=== PATIENT | male | born 1950 | race Caucasian/White ===

== ENCOUNTER 2019-09-13 16:32 | Inpatient (IN) ==
[2019-09-13] MEDS ORDERED: ALBUTEROL 0.083% NEBU SOLN 3 ML VIAL NEB STA (17:13)
--- NOTE | 2019-09-13 17:33 | XRay Report ---
SINGLE VIEW CHEST CLINICAL HISTORY: Dyspnea. FINDINGS: 2 AP, portable, upright chest radiographs are obtained. No prior studies are available for comparison at the time of dictation. The examination is degraded by portable technique, large body salinas bitus, and patient rotation. The heart is enlarged noting atherosclerotic calcification of the thora cic aorta. There is prominence of the pulmonary vasculature. Scarring/atelectasis is noted at the zoila g bases. No airspace consolidation or large pleural effusion is identified. No pneumothorax is seen. The skeletal structures are osteopenic. The bony thorax is grossly intact. Fusion hardware is noted i n the lower cervical spine. Electronic device projects over the left apex. IMPRESSION: Cardiomegaly with prominence of the pulmonary vasculature. Correlate clinically for evide nce of mild congestive failure. ACT 112: Negative or not required by law. Electronically signed by: Patrick Lobo M.D. 09/13/2019 5:31 PM
[2019-09-13 17:55] LABS: Partial Thromboplastin Time 29.2 Seconds (21.0-31.0); Prothrombin Time 10.5 Seconds (9.0-12.0)
[2019-09-13 18:04] LABS: Alanine Aminotransferase 23 U/L (12-78); Albumin Level 3.2 gm/dl (3.4-5.0); Aspartate Aminotransferase 21 U/L (15-37); BUN Creatinine Ratio 13.3 (10-20); Blood Urea Nitrogen 10 mg/dl (7-18); Calcium 8.9 mg/dl (8.5-10.1); Carbon Dioxide 36 mmol/L (21-32); Chloride 96 mmol/L (98-107); Creatinine Clr Calc Pharmacy 116.7 ml/min; Est GFR (African American) 108.2; Est GFR (Non-African American) 93.3; Glucose 112 mg/dl (70-99); Magnesium 2.1 mg/dl (1.8-2.4); Sodium 134 mmol/L (136-145)
[2019-09-13 18:05] LABS: Basophils # (auto) 0.01 K/uL (0-0.2); Basophils % (auto) 0.1 %; Eosinophils # (auto) 0.17 K/uL (0-0.5); Hematocrit (blood only) 46.7 % (42-52); Hemoglobin 15.4 g/dL (14.0-18.0); Immature Granulocytes # (auto) 0.03 K/uL (0.00-0.02); Immature Granulocytes % (auto) 0.4 %; Lymphocytes # (auto) 1.23 K/uL (1.2-3.4); Lymphocytes % (auto) 14.4 %; Mean Corpuscular Hemoglobin 32.8 pg (25-34); Mean Corpuscular Volume 99.4 fL (80-100); Mean Platelet Volume 9.5 fL (7.4-10.4); Monocytes # (auto) 0.79 K/uL (0.11-0.59); Monocytes % (auto) 9.3 %; Neutrophils % (auto) 73.8 %; Platelet Count 183 K/uL (130-400); RDW Coefficient of Variation 13.8 % (11.5-14.5); RDW Standard Deviation 49.5 fL (36.4-46.3); White Blood Count 8.53 K/uL (4.8-10.8)
[2019-09-13 18:09] LABS: Albumin Globulin Ratio 0.7 (0.9-2); Alkaline Phosphatase 103 U/L (45-117); Bilirubin,Total 0.2 mg/dl (0.2-1); Globulin 4.4 gm/dl (2.5-4.0); NT Pro B Type Natriuretic Pept 207 pg/ml (0-900); Total Protein 7.6 gm/dl (6.4-8.2); Troponin I < 0.015 ng/ml (0-0.045)
[2019-09-13 18:39] LABS: Influenza A virus by PCR Neg for Influ A (Neg); Influenza B virus by PCR Neg for Influ B (Neg)
[2019-09-13 19:06] LABS: D Dimer 660 ug/L FEU (0-500)
[2019-09-13] MEDS ORDERED: NITROGLYCERIN 2% OINTMENT 30GM TUBE EXT STA (19:13)
[2019-09-13] MEDS ORDERED: ALUMINUM/MAGNESIUM SUSP 30 ML UDC PO PRN (19:15)
[2019-09-13] MEDS ORDERED: POLYETHYLENE (MIRALAX) 17 GM PACK PO PRN (19:15)
[2019-09-13] MEDS ORDERED: ACETAMINOPHEN 325 MG TAB PO PRN (19:15)
[2019-09-13] MEDS ORDERED: MAGNESIUM HYDROXIDE SUSP 30 ML UDC PO PRN (19:15)
[2019-09-13 19:26] LABS: Appearance Urine Clear (Clear); Bacteria Urine Automated Negative (Negative); Bilirubin Urine Negative (Negative); Blood Urine Negative (Negative); Cast Urine Automated 0 /lpf (0-5); Color Urine Yellow; Epithelial Cell Urine Auto 0-5 /lpf (0-5); Glucose Urine UA Negative (Negative); Ketones Urine Negative (Negative); Leukocyte Esterase Urine Negative (Negative); Nitrite Urine Negative (Negative); Protein Urine 2+ (Negative); RBC Urine Automated 0-4 /hpf (0-4); Specific Gravity Urine 1.013 (1.000-1.030); Urobilinogen Urine Negative (Negative); WBC Urine Automated 0 /hpf (0-5)
[2019-09-13] MEDS ORDERED: OPTIRAY 320 125ml IV PRN (19:41)
--- NOTE | 2019-09-13 20:00 | CT Scan Report ---
CT ANGIOGRAM OF THE CHEST CLINICAL HISTORY: Hypoxia. COMPARISON STUDY: Chest x-ray dated 09/13/2019. TECHNIQUE: Following the IV administration of 120 cc of Optiray 320, CT angiogram of the chest was pe rformed from the upper abdomen to the thoracic inlet utilizing the pulmonary embolus protocol. Images are reviewed in the axial, sagittal, and coronal planes. 3-D MIPS images are created and assessed. I V contrast was administered without complication. A dose lowering technique was utilized adhering to the principles of ALARA. CT DOSE: 1107.04 mGy.cm FINDINGS: Thyroid: Imaged portions of the thyroid gland are normal in size and heterogeneous in attenuation. Thoracic aorta: There is atherosclerotic calcification of the thoracic aorta, which is normal in emanuel anum and demonstrates standard 3-vessel arch anatomy. No dissection is seen. Pulmonary vasculature: The pulmonary trunk is normal in caliber. There are no filling defects identif ied in main, lobar, or segmental pulmonary branches to suggest pulmonary embolus. Heart: The heart is top normal in size and without pericardial effusion. The coronary arteries and mi tral annulus are densely calcified. Lungs and pleural spaces: There is no airspace consolidation or pleural effusion. Mild scarring/atele ctasis is noted at the lung bases. The trachea and central airways are clear. There is diffuse peribr onchial thickening. Mediastinum: There is no mediastinal lymphadenopathy. Kiesha: Clear. Axillae: There is no axillary lymphadenopathy. Upper abdomen: There is a tiny hiatal hernia. Partially visualized upper abdominal viscera is within normal limits. Skeletal structures: The Skeletal structures are osteopenic. No lytic or blastic bony lesions are see n. Degenerative change is noted in the shoulders and thoracic spine. Fusion hardware is noted in the lower cervical spine. IMPRESSION: 1. There is no evidence of pulmonary embolus in the main, lobar, or segmental pulmonary arteries. 2. There is no airspace consolidation or pleural effusion. 3. Mild diffuse peribronchial thickening suggests bronchitis/reactive airway disease. Clinical correl ation will be required. ACT 112: Negative or not required by law. Electronically signed by: Patrick Lobo M.D. 09/13/2019 7:59 PM
--- NOTE | 2019-09-13 20:09 | Emergency Department Note ---
Entered by Ena Berry acting as a scribe for History of Present Illness General Chief complaint: Illness Stated complaint: COUGH, LIGHTHEADED, SEIZURE, EXCESS PHLEM Source: patient and family () Mode of arrival: ambulatory Limitations: no limitations History of Present Illness Provider complaint: Syncope Onset (ago): hour(s) 1 Location: head Pain Consistency: + other (episode) Maximum Pain Intensity: 3 Quality: + other (syncope) Associated symptoms: + cough, + nausea/vomiting, + shortness of breath and + other (Additional symptoms: hypoxia, swelling to the extremities, back pain) The patient is a 69 year old male with a history of COPD who presents to the Emergency Room with complaints of an episode of syncope secondary to hypoxia occurring about 1 hour prior to arrival. Per , the patient was lying down at home when he suddenly sat up and keeled backwards. She reports that his eyes r olled back and that he was unconscious for about 20 seconds. 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 He adds that he is supposed to be on 2L O2 at night and is scheduled to have a pacemaker placed in the near future. The patient reports that he is cared for at the [facility] and has been referred to [facility] for further evaluation. He adds that he sees Dr. Llanos for cardiology. The patient also complains of shortness of breath, cough, increasing swelling to the extremities, back pain, and vomiting. He mentions that he visited [place] a few days ago and that he smokes. Home Medications Home Medications Medication Instructions Recorded Confirmed Type Nugenix 1 cap PO DAILY 09/13/19 History amlodipine 10 mg PO DAILY 09/13/19 09/13/19 History aspirin [Danielle Aspirin] 325 mg PO QAM 09/13/19 09/13/19 History ieooqol-dqfubwqnqzyif-mabseeju 1 tab PO Q6H PRN 09/13/19 09/13/19 History [Excedrin Extra Strength] hmbayvmcat-gcqizoejohoai-pcvp 1 tab PO Q6H PRN 09/13/19 09/13/19 History cholecalciferol (vitamin D3) 1,000 unit PO DAILY 09/13/19 09/13/19 History [Vitamin D3] diazepam 5 mg PO TID PRN 09/13/19 09/13/19 History furosemide 40 mg PO BID 09/13/19 09/13/19 History latanoprost 1 drp OPHTHALMIC (EYE) PM 09/13/19 09/13/19 History magnesium 400 mg PO DAILY 09/13/19 09/13/19 History mv,Ca,yne-dwfj-FP-lycopene 1 tab PO DAILY 09/13/19 09/13/19 History [Centrum Men] omega 5-rry-kim-fish oil 2 cap PO BID 09/13/19 09/13/19 History sildenafil 100 mg PO DAILY PRN 09/13/19 09/13/19 History timolol 1 drp OPHTHALMIC (EYE) QAM 09/13/19 09/13/19 History trazodone 100 mg PO HS 09/13/19 09/13/19 History Allergies Allergy/AdvReac Type Severity Reaction Status Date / Time gabapentin Allergy Unknown Unverified 09/13/19 18:01 muscle relaxers Allergy Unknown Uncoded 09/13/19 18:01 Past Med/Surg History Medical History COPD (chronic obstructive pulmonary disease) Social History Preferred Language: [place] marital status: Feels Safe at Home: Yes Smoking Status: Current every day smoker Review of Systems See HPI for pertinent positives & negatives. and A total of 10 systems reviewed and were otherwise negative Physical Exam Vital Signs Vital Signs - 24 hr 09/13/19 16:33 09/13/19 17:01 09/13/19 17:31 Temperature 36.5 C Temperature Source Oral Pulse Rate 85 82 Pulse Rate [Apical] 86 Pulse Rate from SpO2 Sensor 82 Pulse Rhythm Regular Pulse Strength Normal Respiratory Rate 20 24 20 Respiratory Effort / Characteristics Non-Labored Spontaneous Non-Labored Spontaneous Respiratory Depth Normal Respiratory Pattern Regular Blood Pressure 186/131 H 186/82 H Blood Pressure Mean 149 93 Blood Pressure Position Sitting Pulse Oximetry 87 L 95 96 Oxygen Delivery Method Room Air Nasal Cannula Nasal Cannula Oxygen Flow Rate 2 2 Sepsis Recent Fever Within 48 Hours No Sepsis Action Taken by Nursing No Action Required 09/13/19 17:32 09/13/19 18:48 Temperature Temperature Source Pulse Rate 81 Pulse Rate [Apical] Pulse Rate from SpO2 Sensor 81 Pulse Rhythm Pulse Strength Respiratory Rate 31 H Respiratory Effort / Characteristics Respiratory Depth Respiratory Pattern Blood Pressure 199/97 H Blood Pressure Mean 110 Blood Pressure Position Pulse Oximetry 97 94 Oxygen Delivery Method Nasal Cannula Nasal Cannula Oxygen Flow Rate 2 2 Sepsis Recent Fever Within 48 Hours Sepsis Action Taken by Nursing GENERAL: sitting up in bed, dyspneic on conversation, moderate distress, nontoxic. EYE EXAM: normal conjunctiva OROPHARYNX: no exudate, no erythema, lips, buccal mucosa, and tongue normal and mucous membranes are moist NECK: supple, no nuchal rigidity, no adenopathy, non-tender LUNGS: Faint wheezing bilateral. Normal chest wall mechanics HEART: no murmurs, S1 normal and S2 normal CHEST: child monitor in place. ABDOMEN: abdomen soft, non-tender, normo-active bowel sounds, no masses, no rebound or guarding. BACK: Back is symmetrical on inspection and there is no deformity, no midline tenderness, no CVA tenderness. SKIN: no rashes and no bruising UPPER EXTREMITIES: upper extremities are grossly normal. LOWER EXTREMITIES: Mild pitting edema NEURO EXAM: Normal sensorium, cranial nerves II-XII grossly intact, normal speech, no gross weakness of arms, no gross weakness of legs. Gross sensation intact. Course Course ED COURSE: Vital signs were reviewed and showed hypertension The patients medical record was reviewed The above diagnostic studies were performed and reviewed. ED treatments and interventions as stated above. 1657: The patient was evaluated in room A2. A complete history and physical examination was performed. 1800: The patient had a 9.2 second and 4.1 second pause today. Upon reevaluation, the patient is resting. I discussed my findings with the patient and he understands and agrees with the treatment plan. 1829: I discussed the patient's case with Dr. Erin Grace. Dr. Khan would like the patient to have a D dimer test and will evaluate the patient for further management. 1844: I reviewed the patient's case with Dr. Duncan - Cardiology, [facility]. Based on the patients age, coexisting illnesses, exam and lab findings the decision to treat as an inpatient was made. The patient remained stable while under my care. The patient will be evaluated for further management. Consultations Consultation #1: I discussed the patient's case with Dr. Erin Grace. Dr. Khan would like the patient to have a D dimer test and will evaluate the patient for further management. Time: 18:29 Consultation #2: I reviewed the patient's case with Dr. Duncan - Cardiology, [facility]. Time: 18:44 Administered Medications Ioversol (Optiray 320 125ml) 120 ml IV ONCE PRN PRN Reason: Interaction Checking Stop: 09/17/19 19:40 Last Admin: 09/13/19 19:42 Dose: 120 ml Documented by: [id number] Discontinued Medications Albuterol (Ventolin 0.083% 2.5mg/3ml) 5 mg NEB NOW STA Stop: 09/13/19 17:14 Last Admin: 09/13/19 17:31 Dose: 5 mg Documented by: [id number] Nitroglycerin (Nitro-Bid 2%) 2 inch EXT NOW STA Stop: 09/13/19 19:14 Last Admin: 09/13/19 19:21 Dose: 2 inch Documented by: [id number] Critical Care Time Critical Care Time: Yes Total Critical Care Time: 32 I have personally spent 32 minutes of critical care time in the direct management of this patient. This includes bedside care, interpretation of diagnostic studies, and testing, discussion with consultants, patient, and family members, and other required patient management activities. This 32 minutes is in excess of all separately billable procedures. Medical Decision Making Differential Diagnosis Differential diagnoses includes but is not limited to pneumonia, bronchitis, COPD/Asthma exacerbation, pneumothorax, pulmonary embolism, congestive heart failure, acute coronary syndrome Medical Records Attestation: I reviewed the patient's medical records. Home Medications Current Medication List: was personally reviewed by me Laboratory Data Attestation: I reviewed the patient's lab results. Result diagrams: 09/13/19 17:30 09/13/19 17:30 Lab Results 09/13/19 09/13/19 09/13/19 Range/Units 17:30 17:30 17:30 WBC 8.53 (4.8-10.8) K/uL RBC 4.70 (4.7-6.1) M/uL Hgb 15.4 (14.0-18.0) g/dL Hct 46.7 (42-52) % MCV 99.4 (80-100) fL MCH 32.8 (25-34) pg MCHC 33.0 (32-36) g/dL RDW Std Deviation 49.5 H (36.4-46.3) fL RDW Coeff of Carla 13.8 (11.5-14.5) % Plt Count 183 (130-400) K/uL MPV 9.5 (7.4-10.4) fL Immature Gran % (Auto) 0.4 % Neut % (Auto) 73.8 % Lymph % (Auto) 14.4 % Hitchcock % (Auto) 9.3 % Eos % (Auto) 2.0 % Baso % (Auto) 0.1 % Immature Gran # (Auto) 0.03 H (0.00-0.02) K/uL Neut # (Auto) 6.30 (1.4-6.5) K/uL Lymph # (Auto) 1.23 (1.2-3.4) K/uL Hitchcock # (Auto) 0.79 H (0.11-0.59) K/uL Eos # (Auto) 0.17 (0-0.5) K/uL Baso # (Auto) 0.01 (0-0.2) K/uL PT 10.5 (9.0-12.0) Seconds INR 1.0 (0.9-1.1) APTT 29.2 (21.0-31.0) Seconds PTT Ratio 1.0 D-Dimer (0-500) ug/L FEU Sodium 134 L (136-145) mmol/L Potassium 4.0 (3.5-5.1) mmol/L Chloride 96 L (98-107) mmol/L Carbon Dioxide 36 H (21-32) mmol/L Anion Gap 2.0 L (3-11) BUN 10 (7-18) mg/dl Creatinine 0.73 (0.6-1.4) mg/dl Est Cr Clr Drug Dosing 116.7 ml/min Est GFR ( Amer) 108.2 Est GFR (Non-Af Amer) 93.3 BUN/Creatinine Ratio 13.3 (10-20) Glucose 112 H (70-99) mg/dl Calcium 8.9 (8.5-10.1) mg/dl Magnesium 2.1 (1.8-2.4) mg/dl Total Bilirubin 0.2 (0.2-1) mg/dl AST 21 (15-37) U/L ALT 23 (12-78) U/L Alkaline Phosphatase 103 (45-117) U/L Troponin I < 0.015 (0-0.045) ng/ml NT-Pro-B Natriuret Pep 207 (0-900) pg/ml Total Protein 7.6 (6.4-8.2) gm/dl Albumin 3.2 L (3.4-5.0) gm/dl Globulin 4.4 H (2.5-4.0) gm/dl Albumin/Globulin Ratio 0.7 L (0.9-2) Urine Color Urine Appearance (Clear) Urine pH (4.5-7.5) Ur Specific Harrold (1.000-1.030) Urine Protein (Negative) Urine Glucose (UA) (Negative) Urine Ketones (Negative) Urine Blood (Negative) Urine Nitrite (Negative) Urine Bilirubin (Negative) Urine Urobilinogen (Negative) Ur Leukocyte Esterase (Negative) Urine WBC (Auto) (0-5) /hpf Urine RBC (Auto) (0-4) /hpf U Hyaline Cast (Auto) (0-5) /lpf U Epithel Cells (Auto) (0-5) /lpf Urine Bacteria (Auto) (Negative) Influenza Type A (PCR) (Neg) Influenza Type B (PCR) (Neg) 09/13/19 09/13/19 09/13/19 Range/Units 17:30 17:32 19:05 WBC (4.8-10.8) K/uL RBC (4.7-6.1) M/uL Hgb (14.0-18.0) g/dL Hct (42-52) % MCV (80-100) fL MCH (25-34) pg MCHC (32-36) g/dL RDW Std Deviation (36.4-46.3) fL RDW Coeff of Carla (11.5-14.5) % Plt Count (130-400) K/uL MPV (7.4-10.4) fL Immature Gran % (Auto) % Neut % (Auto) % Lymph % (Auto) % Hitchcock % (Auto) % Eos % (Auto) % Baso % (Auto) % Immature Gran # (Auto) (0.00-0.02) K/uL Neut # (Auto) (1.4-6.5) K/uL Lymph # (Auto) (1.2-3.4) K/uL Hitchcock # (Auto) (0.11-0.59) K/uL Eos # (Auto) (0-0.5) K/uL Baso # (Auto) (0-0.2) K/uL PT (9.0-12.0) Seconds INR (0.9-1.1) APTT (21.0-31.0) Seconds PTT Ratio D-Dimer 660 H* (0-500) ug/L FEU Sodium (136-145) mmol/L Potassium (3.5-5.1) mmol/L Chloride (98-107) mmol/L Carbon Dioxide (21-32) mmol/L Anion Gap (3-11) BUN (7-18) mg/dl Creatinine (0.6-1.4) mg/dl Est Cr Clr Drug Dosing ml/min Est GFR ( Amer) Est GFR (Non-Af Amer) BUN/Creatinine Ratio (10-20) Glucose (70-99) mg/dl Calcium (8.5-10.1) mg/dl Magnesium (1.8-2.4) mg/dl Total Bilirubin (0.2-1) mg/dl AST (15-37) U/L ALT (12-78) U/L Alkaline Phosphatase (45-117) U/L Troponin I (0-0.045) ng/ml NT-Pro-B Natriuret Pep (0-900) pg/ml Total Protein (6.4-8.2) gm/dl Albumin (3.4-5.0) gm/dl Globulin (2.5-4.0) gm/dl Albumin/Globulin Ratio (0.9-2) Urine Color Yellow Urine Appearance Clear (Clear) Urine pH 6.0 (4.5-7.5) Ur Specific Harrold 1.013 (1.000-1.030) Urine Protein 2+ H (Negative) Urine Glucose (UA) Negative (Negative) Urine Ketones Negative (Negative) Urine Blood Negative (Negative) Urine Nitrite Negative (Negative) Urine Bilirubin Negative (Negative) Urine Urobilinogen Negative (Negative) Ur Leukocyte Esterase Negative (Negative) Urine WBC (Auto) 0 (0-5) /hpf Urine RBC (Auto) 0-4 (0-4) /hpf U Hyaline Cast (Auto) 0 (0-5) /lpf U Epithel Cells (Auto) 0-5 (0-5) /lpf Urine Bacteria (Auto) Negative (Negative) Influenza Type A (PCR) Neg for Influ A (Neg) Influenza Type B (PCR) Neg for Influ B (Neg) Imaging Data Radiologist's Impression: Radiology results as stated below per my review and the radiologist's interpretation: SINGLE VIEW CHEST CLINICAL HISTORY: Dyspnea. FINDINGS: 2 AP, portable, upright chest radiographs are obtained. No prior studies are available for comparison at the time of dictation. The examination is degraded by portable technique, large body habitus, and patient rotation. The heart is enlarged noting atherosclerotic calcification of the thoracic aorta. There is prominence of the pulmonary vasculature. Scarring/atelectasis is noted at the lung bases. No airspace consolidation or large pleural effusion is identified. No pneumothorax is seen. The skeletal structures are osteopenic. The bony thorax is grossly intact. Fusion hardware is noted in the lower cervical spine. Electronic device projects over the left apex. IMPRESSION: Cardiomegaly with prominence of the pulmonary vasculature. Correlate clinically for evidence of mild congestive failure. ACT 112: Negative or not required by law. Electronically signed by: Patrick Lobo M.D. 09/13/2019 5:31 PM ECG Data Attestation: I personally reviewed and interpreted this ECG as follows: Indication: + SOB/dyspnea Rate (beats per minute): 82 Rhythm: + sinus rhythm ECG Intervals/blocks: + Right Bundle branch block ECG [place]: + Left axis deviation ECG ST segments: + T-wave inversions (V1) ECG Findings: no PVCs Blood Pressure Blood Pressure Findings: Elevated blood pressure Blood Pressure Disposition: further management by hospitalist FANY Narrative Patient is a 69-year-old male presents the ER for syncopal episode. Upon arrival he is found to be hypoxic. Does have a history of COPD. [facility] Has a heart monitor in place. Did obtain records and it appears as though he has had a 9.2-second pause and a 4.1-second pause today. [facility] show that he is also had a reported 12-second pause. They did recommend pacer placement. Patient did have faint wheezing. He was given neb treatments. IV was established blood work was obtained showed no significant leukocytosis or anemia. D-dimer was slightly elevated and CT PE was performed but showed no clots. BMP was unremarkable along with LFTs bilirubin troponin and BNP. UA was negative. Influenza negative. Patient was given a neb treatments along with steroids. He was updated bedside. Discussed with the hospitalist as well as cardiology for admission with syncope, sick sinus syndrome as well as hypoxia. Continuous Cardiac Monitoring: An order was placed for continuous cardiac monitoring. The monitor shows a rate of 82 with sinus rhythm. Impression & Plan Sick sinus syndrome, Hypoxia, Syncope, COPD exacerbation Discharge Plan Visit Data Chief Complaint: Illness Stated Complaint: COUGH, LIGHTHEADED, SEIZURE, EXCESS PHLEM ED Provider: Jayce Rios Discharge Problem: Sick sinus syndrome, Hypoxia, Syncope, COPD exacerbation Patient Disposition: Admitted As Inpatient Forms Stand Alone Forms: My [facility] Prescriptions Prescriptions: No Action furosemide 40 mg Tablet 40 mg PO BID RF: 0 aspirin [Danielle Aspirin] 325 mg Tablet 325 mg PO QAM RF: 0 sildenafil 100 mg Tablet 100 mg PO DAILY PRN (Reason: Erectile Dysfunction) RF: 0 zrdjkdtohs-icxlchawijzvy-ytjv 50-325-40 mg Tablet 1 tab PO Q6H PRN (Reason: Migraine Headache) RF: 0 trazodone 100 mg Tablet 100 mg PO HS RF: 0 amlodipine 10 mg Tablet 10 mg PO DAILY RF: 0 timolol 0.25 % Drops 1 drp OPHTHALMIC (EYE) QAM RF: 0 Excedrin Extra Strength 250-250-65 mg Tablet 1 tab PO Q6H PRN (Reason: Pain) RF: 0 diazepam 5 mg Tablet 5 mg PO TID PRN (Reason: Anxiety) RF: 0 cholecalciferol (vitamin D3) [Vitamin D3] 25 mcg (1,000 unit) Capsule 1,000 unit PO DAILY RF: 0 magnesium 200 mg Tablet 400 mg PO DAILY RF: 0 omega 5-wni-iav-fish oil 1,000 mg (120 mg-180 mg) Capsule 2 cap PO BID RF: 0 Centrum Men 8 mg iron- 200 mcg-600 mcg Tablet 1 tab PO DAILY RF: 0 Nugenix 1 cap PO DAILY RF: 0 latanoprost 0.005 % Drops 1 drp OPHTHALMIC (EYE) PM RF: 0 Referrals Referrals: PCP,NO [Primary Care Provider] - Discharge Problem: Syncope Qualifiers: Syncope type: unspecified Qualified Code(s): R55 - Syncope and collapse The scribe's documentation has been prepared under my direction and personally reviewed by me in its entirety. I confirm that the note above accurately reflects all work, treatment, procedures, and medical decision making performed by me.
[2019-09-13] MEDS ORDERED: HydrALAZINE 10 MG TAB PO PRN (20:42)
[2019-09-13] MEDS ORDERED: XOPENEX/ATROVENT 0.63mg/0.5MG NEB COMBO NEB PRN (20:58)
--- NOTE | 2019-09-13 20:58 | History & Physical Report ---
Date of Service September 13, 2019 Assessment & Plan (1) Acute respiratory failure with hypoxia: Admits to PCU on telemetry, Vital signs every 4 hours, Check CBC, CMP daily, replenish electrolytes. BNP pending, procalcitonin pending. Follow-up with results. Hypoxia could be due to volume overload and patient admitted that he gained at least 10 pounds of weight. Started doxycycline 100 mg IV twice daily for bronchitis. Started ipratropium Xopenex (since patient cannot tolerate DuoNeb) every 6 hours for shortness of breath and difficulties with breathing. DVT prophylaxis SCDs and teds, Full code Present on Admission?: Yes (2) Acute exacerbation of congestive heart failure: Patient clinically appears volume overloaded and chest x-ray is concerning pulmonary congestion. He could be above his crude weight baseline approximately 20 to 30 pounds. Started Lasix 40 mg IV daily and increase as needed to achieve net negative output at least 1.5 L daily, Replenish electrolytes and monitor closely, Monitor blood pressure which was elevated in the emergency room, Restarted home dose of amlodipine 10 mg p.o. daily, Started hydralazine 10 mg p.o. 4 times daily as needed for elevated blood pressure above 160/90 Heart healthy diet with low-sodium Restrict free water p.o. intake to 1200 mils per day Strict in and out Daily weight Present on Admission?: Yes (3) Sick sinus syndrome: TTE pending We will consult cardiology, EKG pending Not clear origin of patient current condition. Patient is poor historian and his records from [facility] are not available. Present on Admission?: Yes (4) COPD exacerbation: As discussed above Present on Admission?: Yes (5) Syncope: As discussed above Present on Admission?: Yes (6) Hypertriglyceridemia: Fasting lipid panel pending, continue fish oil through capsule p.o. twice daily Present on Admission?: Yes (7) Hypertension: Monitor blood pressure every 4 hours, Started home dose of amlodipine 10 mg p.o. daily And aspirin 325 mg p.o. every morning Present on Admission?: Yes (8) Nicotine dependence: Patient was advised to stop smoking, offered nicotine patch. (9) Legal blindness: Patient has glaucoma. Continue timolol 1 drop to both eyes every morning. Present on Admission?: Yes History of Present Illness Chief Complaint: Shortness of breath and syncope Primary Care Provider: NO PCP The patient is a 69 years old with past medical history of congestive heart failure, sick sinus syndrome, COPD , legally blind who was brought to the emergency room with a complaint of an episode of syncope secondary to hypoxia occurring approximately 1 hour ago prior to arrival. Per patient the patient was laying down at home when he suddenly sat up and keeled backwards. Patient reports that his eyes rolled back and he was unconscious approximately for 20 seconds. The patient reports that he had a grand mal se izure due to medication reaction many years ago and he does not take that medication anymore. Patient supposed to be on 2 L of oxygen at night and have pacemaker placed in near future. Since patient goes to the [facility] we are not able to obtain his records at this time. Per patient he was referred from [facility] to [place] for further evaluation. 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 Patient denies fever, chills, chest pain, abdominal pain, frequency, urgency, back pain, nausea, vomiting. Patient continues to smoke. Patient states that he does not smoke a lot but he did in the past. He smokes approximately several cigarettes per day. Labs are reviewed: WBCs 8.53, hemoglobin 15.4, hematocrit 46.7, platelets 183, PT 10.5, INR 1, APTT 29.2 d-dimer is 660, sodium 134, potassium 4, chloride 96, carbon dioxide 36, anion gap 2, BUN 10, creatinine 0.73, GFR 93.3, glucose 112, calcium 8.9, magnesium 2.1, total bilirubin 0.2, alkaline phosphatase 103, troponin 0.015, BNP 207, total protein 7.6, albumin 3.2, globulin 4.4, TSH pending. CTA of the chest: There is no pulmonary embolism, there is no airspace consolidation or pleural effusion. Mild diffuse tomer-bronchial thickening suggests bronchitis reactive airway disease. Decision was made to admit patient for acute exacerbation of CHF, syncope, and acute exacerbation of COPD. Allergies Allergy/AdvReac Type Severity Reaction Status Date / Time gabapentin Allergy Unknown Unverified 09/13/19 18:01 muscle relaxers Allergy Unknown Uncoded 09/13/19 18:01 Home Medications Home Medications Medication Instructions Recorded Confirmed Type Nugenix 1 cap PO DAILY 09/13/19 History amlodipine 10 mg PO DAILY 09/13/19 09/13/19 History aspirin [Danielle Aspirin] 325 mg PO QAM 09/13/19 09/13/19 History mxgepns-hvkmieesseixp-gtgkioti 1 tab PO Q6H PRN 09/13/19 09/13/19 History [Excedrin Extra Strength] vsylbismqi-ekfpucjoybcxm-quck 1 tab PO Q6H PRN 09/13/19 09/13/19 History cholecalciferol (vitamin D3) 1,000 unit PO DAILY 09/13/19 09/13/19 History [Vitamin D3] diazepam 5 mg PO TID PRN 09/13/19 09/13/19 History furosemide 40 mg PO BID 09/13/19 09/13/19 History latanoprost 1 drp OPHTHALMIC (EYE) PM 09/13/19 09/13/19 History magnesium 400 mg PO DAILY 09/13/19 09/13/19 History mv,Ca,ret-pbdu-UC-lycopene 1 tab PO DAILY 09/13/19 09/13/19 History [Centrum Men] omega 3-bqx-ioj-fish oil 2 cap PO BID 09/13/19 09/13/19 History sildenafil 100 mg PO DAILY PRN 09/13/19 09/13/19 History timolol 1 drp OPHTHALMIC (EYE) QAM 09/13/19 09/13/19 History trazodone 100 mg PO HS 09/13/19 09/13/19 History Past Med/Surg History Medical History COPD (chronic obstructive pulmonary disease) Social History Preferred Language: Djiboutian Communication Ability: Effective Pharmacy Data Analyst Required: No Beliefs That Will Affect Care: None marital status: Current Living Situation: Alone Feels Safe at Home: Yes Safety Concerns: Feels Safe At This Time Smoking Status: Current every day smoker Tobacco Type: cigarettes ; Cigarettes Per Day: 20 ; Hx Alcohol Use: No Hx Substance Use: Yes substance use type: marijuana Review of Systems Review of Systems: All systems reviewed & are unremarkable except as noted in HPI & below Physical Exam Constitutional: WD/WN, vitals as above well developed and + morbidly obese Eyes: PERRL, conjunctivae normal, anicteric sclerae ENMT: external ear and nose normal, oropharynx normal Neck: trachea midline, no thyromegaly Respiratory: Auscultation: + crackles and + wheezes Cardiovascular: Rate/Rhythm: regular rate and regular rhythm Heart Sounds: normal S1 and normal S2 Palpation: + palpable S3 Vessels: dorsalis pedis pulses present Extremities: + pedal edema Gastrointestinal (Abdomen): normal bowel sounds, soft, nontender, no hepatosplenomegaly Musculoskeletal: no cyanosis or clubbing, extremities motor strength 5/5 Skin: no rashes, warm and dry Neurologic: patellar DTR's 2+ bilat, sensation intact Psychiatric: A+Ox3, euthymic affect Lymphatic: no cervical or axillary lymphadenopathy Results & Data Vital Signs (Past 12 Hours) Vital Signs Temp Pulse Pulse Resp BP Pulse Ox 09/13/19 18:48 81 31 H 199/97 H 94 09/13/19 17:32 97 09/13/19 17:31 86 20 96 09/13/19 17:01 82 24 186/82 H 95 09/13/19 16:33 36.5 C 85 20 186/131 H 87 L Code Status & VTE Plan Code Status Full code VTE Prophylaxis Plan VTE Prophylaxis will be ordered: Yes PG Care Time/CCT Total # of Minutes Spent Total Time Spent with Patient: Total time spent is greater than 50% in coordination of care (as documented) at patient's floor/unit and/or counseling patient: Coding Level of Care Code 32493 Initial Inpt Care Lvl 3 Diagnoses Acute respiratory failure with hypoxia J96.01 Acute exacerbation of congestive heart failure I50.9 Sick sinus syndrome I49.5 COPD exacerbation J44.1 Syncope R55 Syncope type: unspecified Hypertriglyceridemia E78.1 Hypertension I10 Nicotine dependence F17.200 Legal blindness H54.8 (1) Syncope Syncope type: unspecified Qualified Code(s): R55 - Syncope and collapse
[2019-09-13] MEDS ORDERED: FUROSEMIDE 40 MG TAB PO SCH (21:00)
[2019-09-13] MEDS ORDERED: FUROSEMIDE 40 MG in SYRINGE 0 ML IV SCH (21:00)
[2019-09-13] MEDS ORDERED: LEVALBUTEROL HCL 0.63 MG/3 ML NEB NEB PRN (21:00)
[2019-09-13] MEDS ORDERED: IPRATROPIUM BROMIDE NEB SOLN 0.02% 2.5 ML VIAL INH PRN (21:00)
[2019-09-13] MEDS ORDERED: OXYCODONE HCL IR 5 MG TAB (IMMEDIATE RELEASE) PO PRN (21:25)
[2019-09-13] MEDS: DOXYCYCLINE HYCLATE 100 MG in DEXTROSE 5% 100 ML IV SCH (21:53)
[2019-09-13] MEDS: methylPREDNISolone 40 MG in SYRINGE 0 ML IV SCH ×2 (21:53→22:01)
[2019-09-13] MEDS: OMEGA-3 (PURIFIED FISH OIL) 1 GM CAP PO SCH (21:54)
[2019-09-13] MEDS: TRAZODONE HCL 100 MG TAB PO SCH (21:54)
[2019-09-13] MEDS: LATANOPROST 0.005% OP SOLN 2.5 ML BTL OP SCH (21:54)
[2019-09-13] MEDS: CLOTRIMAZOLE 1% CR 15 GM TUBE EXT SCH (21:54)
[2019-09-13 22:12] LABS: Thyroid Stimulating Hormone 3.08 uIu/ml (0.300-4.500)
[2019-09-14] MEDS ORDERED: GUAIFENESIN/DEXTROM SYRUP 200MG/20MG 10ML UDC PO STA (05:00)
[2019-09-14 06:16] LABS: Basophils # (auto) 0.01 K/uL (0-0.2); Basophils % (auto) 0.1 %; Eosinophils # (auto) 0.05 K/uL (0-0.5); Eosinophils % (auto) 0.6 %; Hematocrit (blood only) 46.3 % (42-52); Hemoglobin 15.3 g/dL (14.0-18.0); Immature Granulocytes # (auto) 0.05 K/uL (0.00-0.02); Immature Granulocytes % (auto) 0.6 %; Lymphocytes # (auto) 1.11 K/uL (1.2-3.4); Lymphocytes % (auto) 14.2 %; Mean Corpuscular Hemoglobin 34.2 pg (25-34); Mean Corpuscular Volume 103.3 fL (80-100); Mean Platelet Volume 9.5 fL (7.4-10.4); Monocytes # (auto) 0.51 K/uL (0.11-0.59); Monocytes % (auto) 6.5 %; Neutrophils # (auto) 6.09 K/uL (1.4-6.5); Platelet Count 181 K/uL (130-400); RDW Coefficient of Variation 13.9 % (11.5-14.5); RDW Standard Deviation 52.6 fL (36.4-46.3); Red Blood Count 4.48 M/uL (4.7-6.1); White Blood Count 7.82 K/uL (4.8-10.8)
[2019-09-14 07:03] LABS: BUN Creatinine Ratio 8.8 (10-20); Calcium 8.4 mg/dl (8.5-10.1); Creatinine Clr Calc Pharmacy 114.3 ml/min; Est GFR (African American) 105.8; Est GFR (Non-African American) 91.3; Potassium 4.1 mmol/L (3.5-5.1)
[2019-09-14 07:06] LABS: Albumin Globulin Ratio 0.7 (0.9-2); Bilirubin,Total 0.2 mg/dl (0.2-1); Globulin 4.3 gm/dl (2.5-4.0); Total Protein 7.3 gm/dl (6.4-8.2)
[2019-09-14 07:20] LABS: Estimated Average Glucose 126 mg/dl
--- NOTE | 2019-09-14 07:48 | XRay Report ---
XR chest 1V portable CLINICAL HISTORY: 69 years-old Male presenting with check pulmonary congestion. TECHNIQUE: Portable upright AP view of the chest was obtained. COMPARISON: 09/13/2019. FINDINGS: Atherosclerosis of the aortic arch. Cardiac silhouette enlarged. Pulmonary vascular engorgement is st able from prior. Persistent bronchial wall cuffing. Mild interstitial prominence. No focal opacity. N o large effusion or pneumothorax. Degenerative changes of the thoracic spine. Anterior fusion hardwar e in the cervical spine. Upper abdomen normal. IMPRESSION: 1. Cardiomegaly with unchanged degree of volume overload and congestive change. No tanner pulmonary e florentin. ACT 112: Negative or not required by law. Electronically signed by: Brent Greenberg M.D. 09/14/2019 7:46 AM
[2019-09-14] MEDS: FUROSEMIDE 40 MG in SYRINGE 0 ML IV SCH ×2 (08:58→16:43)
[2019-09-14] MEDS: ASPIRIN 325 MG ECTAB PO SCH (08:59)
[2019-09-14] MEDS: OMEGA-3 (PURIFIED FISH OIL) 1 GM CAP PO SCH ×2 (08:59→19:56)
[2019-09-14] MEDS: CHOLECALCIFEROL 1,000 UNITS 25 MCG TAB PO SCH (08:59)
[2019-09-14] MEDS: MAGNESIUM OXIDE 400 MG TAB PO SCH (09:00)
[2019-09-14] MEDS: AMLODIPINE BESYLATE 5 MG TAB PO SCH (09:01)
[2019-09-14] MEDS: CEROVITE ADV FORMULA TAB PO SCH (09:01)
[2019-09-14] MEDS: CLOTRIMAZOLE 1% CR 15 GM TUBE EXT SCH ×2 (09:01→19:56)
[2019-09-14] MEDS: TIMOLOL MALEATE 0.25% OP SOLN 5 ML BTL OP SCH (09:03)
[2019-09-14] MEDS: methylPREDNISolone 40 MG in SYRINGE 0 ML IV SCH (09:07)
[2019-09-14] MEDS: NICOTINE 14 MG/24 HR PATCH TD SCH (09:19)
[2019-09-14] MEDS: DOXYCYCLINE HYCLATE 100 MG in DEXTROSE 5% 100 ML IV SCH ×2 (09:32→19:55)
[2019-09-14] MEDS: OXYCODONE HCL IR 5 MG TAB (IMMEDIATE RELEASE) PO PRN ×2 (10:18→22:20)
--- NOTE | 2019-09-14 10:50 | Cardiology Consultation ---
Date of Consultation September 14, 2019 Assessment & Plan (1) Syncope: He has had several witnessed syncopal events, one in July was evaluated at [facility] where a 12-second pauses reported, he has had recent events leading to his admission here. I think he is also being evaluated for seizure activity although bradycardia seems more likely and I would probably treat that first with a pacemaker and only if there are recurrent episodes consider further evaluation. (2) Bradycardia: He has multiple reported pauses on event monitoring and perhaps on telemetry monitoring at [facility] emergency room in July where a 12-second pauses reported. I have not seen specific diagnoses mention for the pauses, I do not know if they are sinus pauses or if they are due to heart block, it does not matter too much but it might be helpful to know. I have not seen these records showing the pauses but they could probably be obtained and it probably would be a good idea before pacemaker implantation. I think he clearly needs a pacemaker based on the data that I have (which does not include rhythm strips to review as noted), I have recommended this to him. He mentions a lot of extraneous data such as her she has one on order, [facility], he would like it done at [place], etc. If he wants to have it done here I can do it on Monday, if not I will leave it up to him and the primary service to make arrangements. I would implant a dual-chamber pacemaker. (3) RBBB (right bundle branch block): He has a right bundle branch block pattern on his electrocardiogram, this indicates some AV conduction disease although it does not necessarily mean he had heart block as a cause of his pauses. No specific treatment or further evaluation for this. (4) Hypertension: His blood pressure is quite elevated, I would not use beta-blockers or negative chronotropic's to treat it. (5) COPD exacerbation: He has longstanding COPD and his lungs do not sound good, as long as he can lay supine without being hypoxic we should be able to place the pacemaker although a few days of respiratory therapy and antibiotics may be in order before pacemaker implantation. It does not appear to be an emergency, has been going on for at least several months although he has had a number of syncopal events likely related to it. I cannot exclude the possibility that his pauses are due to hypoxia, given the magnitude of them it seems little unlikely and perhaps review of the tracings could help with that. Normally with pauses of that duration and clinical syncope even if we think hypoxia might be a contributing factor I would favor a pacemaker. History of Present Illness Reason for Consultation: Pauses and syncope Attending Physician: Manny Nagel, DO History of Present Illness This is a 69-year-old male who is an extremely rambling historian and I cannot get virtually no specific information from him. My history is therefore from [facility] chart. He has been followed by digital coordinator in [place], apparently he is here because he was visiting somebody in this area but he actually lives in [place] from what he tells me. Based on the cardiology note from September 03, 2019 he had an episode of syncope where he was evaluated at the [facility] emergency department in July 2019, it is reported that he had a 12-second pause and a pacemaker was recommended but he refused. Although he denies this. He then had a 30-day event monitor placed and he has had several long pauses documented, evidently he was observed to be unresponsive on September 12, 2019 and had a 9.2-second pause and a 4.2-second pause although I do not know for sure where that corresponded to his unresponsive spell although they at least occurred the same day although I do not know the specific times. He therefore came into the emergency room and was admitted. Further history from the cardiology note from [place] notes that he has hypertension, chronic diastolic congestive heart failure, COPD, a possible seizure disorder although that actually may be due to cardiac syncope, carotid artery disease, morbid obesity as well as medical noncompliance. Since admission he denies having lightheadedness, dizziness, presyncope or syncope or any other cardiac complaints other than coughing and sputum production. Allergies Allergy/AdvReac Type Severity Reaction Status Date / Time gabapentin Allergy Unknown Unverified 09/13/19 18:01 muscle relaxers Allergy Unknown Uncoded 09/13/19 18:01 Home Medications Home Medications Medication Instructions Recorded Confirmed Type Nugenix 1 cap PO DAILY 09/13/19 History amlodipine 10 mg PO DAILY 09/13/19 09/13/19 History aspirin [Danielle Aspirin] 325 mg PO QAM 09/13/19 09/13/19 History ofdgbtg-exucvhfoewdvj-nyhphyhs 1 tab PO Q6H PRN 09/13/19 09/13/19 History [Excedrin Extra Strength] vuqufrojjp-izzorqccgfste-sntt 1 tab PO Q6H PRN 09/13/19 09/13/19 History cholecalciferol (vitamin D3) 1,000 unit PO DAILY 09/13/19 09/13/19 History [Vitamin D3] diazepam 5 mg PO TID PRN 09/13/19 09/13/19 History furosemide 40 mg PO BID 09/13/19 09/13/19 History latanoprost 1 drp OPHTHALMIC (EYE) PM 09/13/19 09/13/19 History magnesium 400 mg PO DAILY 09/13/19 09/13/19 History mv,Ca,iii-qxqq-SM-lycopene 1 tab PO DAILY 09/13/19 09/13/19 History [Centrum Men] omega 5-rqu-eae-fish oil 2 cap PO BID 09/13/19 09/13/19 History sildenafil 100 mg PO DAILY PRN 09/13/19 09/13/19 History timolol 1 drp OPHTHALMIC (EYE) QAM 09/13/19 09/13/19 History trazodone 100 mg PO HS 09/13/19 09/13/19 History Patient History Medical History COPD (chronic obstructive pulmonary disease) Social History Preferred Language: Kuwaiti Communication Ability: Effective Tellers Supervisor Required: No Beliefs That Will Affect Care: None marital status: Current Living Situation: Alone Feels Safe at Home: Yes Safety Concerns: Feels Safe At This Time Smoking Status: Current every day smoker Tobacco Type: cigarettes ; Cigarettes Per Day: 20 ; Hx Alcohol Use: No Hx Substance Use: Yes substance use type: marijuana Review of Systems Review of Systems: All systems reviewed & are unremarkable except as noted in HPI & below Physical Exam Physical Exam: Constitutional: Alert, cooperative and in no distress. HEENT: Unremarkable Neck: No jugular venous distention, carotid pulses are normal and equal bilatera lly without bruits. Pulmonary: Rhonchi and prolonged expiration on auscultation bilaterally. Cardiac: Regular rhythm with no murmur, gallop or rub. Abdomen: Soft, nontender with normal bowel sounds. Extremities: Bilateral pretibial edema. Distal pulses intact. Neurologic: No focal findings. Gait is steady. Skin: No rash, ecchymoses or petechiae. Results & Data ([facility]) Vital Signs (Past 12 Hours) Vital Signs Temp Pulse Pulse Resp BP Pulse Ox 09/14/19 07:42 37.0 C 92 H 27 H 180/74 H 95 09/14/19 07:23 94 H 09/14/19 04:07 37 C 104 H 18 179/82 H 95 09/14/19 00:00 88 09/13/19 23:46 36.7 C 85 24 166/64 H 96 Laboratory Results Cardiac Enzymes 09/13/19 09/14/19 Range/Units 17:30 05:52 AST 21 18 (15-37) U/L Troponin I < 0.015 (0-0.045) ng/ml Coagulation 09/13/19 Range/Units 17:30 PT 10.5 (9.0-12.0) Seconds APTT 29.2 (21.0-31.0) Seconds Lipids 09/14/19 Range/Units 05:52 Triglycerides 95 (0-150) mg/dl Cholesterol 172 (0-200) mg/dl HDL Cholesterol 43 mg/dl Cholesterol/HDL Ratio 4 CBC 09/13/19 09/14/19 Range/Units 17:30 05:52 WBC 8.53 7.82 (4.8-10.8) K/uL RBC 4.70 4.48 L (4.7-6.1) M/uL Hgb 15.4 15.3 (14.0-18.0) g/dL Hct 46.7 46.3 (42-52) % Plt Count 183 181 (130-400) K/uL Neut # (Auto) 6.30 6.09 (1.4-6.5) K/uL Lymph # (Auto) 1.23 1.11 L (1.2-3.4) K/uL Dale # (Auto) 0.79 H 0.51 (0.11-0.59) K/uL Eos # (Auto) 0.17 0.05 (0-0.5) K/uL Baso # (Auto) 0.01 0.01 (0-0.2) K/uL Comprehensive Metabolic Panel 09/13/19 09/14/19 Range/Units 17:30 05:52 Sodium 134 L 137 (136-145) mmol/L Potassium 4.0 4.1 (3.5-5.1) mmol/L Chloride 96 L 97 L (98-107) mmol/L Carbon Dioxide 36 H 37 H (21-32) mmol/L BUN 10 7 (7-18) mg/dl Creatinine 0.73 0.77 (0.6-1.4) mg/dl Glucose 112 H 116 H (70-99) mg/dl Calcium 8.9 8.4 L (8.5-10.1) mg/dl AST 21 18 (15-37) U/L ALT 23 24 (12-78) U/L Alkaline Phosphatase 103 109 (45-117) U/L Total Protein 7.6 7.3 (6.4-8.2) gm/dl Albumin 3.2 L 3.0 L (3.4-5.0) gm/dl Intake and Output 09/13/19 09/14/19 09/14/19 22:59 06:59 14:59 Intake Total 480 / 840 360 / 840 Output Total 3150 / 3600 450 / 3600 Balance -2670 / -2760 -90 / -2760 Intake: IV 110 / 110 Vibramycin 100 mg In D5 100 ml 110 / 110 @ 50 mls/hr IV BID AJITH Rx#: [id number] Oral 480 / 730 250 / 730 Output: Urine 3150 / 3600 450 / 3600 Other: # Unmeasured Voids 2 Weight 128.6 kg 130.4 kg Diagnostic Findings Telemetry: Sinus rhythm and sinus bradycardia, no long pauses PG Care Time/CCT Total # of Minutes Spent Total Time Spent with Patient: Total time spent is greater than 50% in coordination of care (as documented) at patient's floor/unit and/or counseling patient: Coding Level of Care Code 06089 Initial Inpt Care Lvl 3 Diagnoses Syncope R55 Syncope type: unspecified Bradycardia R00.1 RBBB (right bundle branch block) I45.10 Hypertension I10 COPD exacerbation J44.1 (1) Syncope Syncope type: unspecified Qualified Code(s): R55 - Syncope and collapse
--- NOTE | 2019-09-14 13:08 | Hospitalist Progress Note ---
Date of Service September 14, 2019 Assessment & Plan (1) Acute respiratory failure with hypoxia: likely combination of some bronchitis/bronchial pneumonia and acute on chronic heart failure follow up echo to determine EF stop Solu Medrol as he refuses to take continue levalbuterol/ipratropium, Doxycycline diuresed well with Lasix 40mg IV last evening will increase Lasix to 40mg IV BID, continue daily weights, fluid restriction, strict I/O (2) Acute exacerbation of congestive heart failure: Patient clinically appears volume overloaded and chest x-ray is concerning pulmonary congestion. He could be above his crude weight baseline approximately 20 to 30 pounds. check echocardiogram to determine EF responding really well to Lasix, negative over 2 liters will increase Lasix to 40mg IV BID weight went up? inaccurate, check again tomorrow strict I/O, fluid restriction (3) Sick sinus syndrome: TTE pending appreciate consult from Dr. Duncan, he recommends pacemaker unsure if it can be done here because [facility] will check with [facility] (4) COPD exacerbation: mild, more like bronchitis stop steroids as he refuses Doxycycline, Ipratropium, Doxycycline (5) Syncope: As discussed above likely due to bradycardia, plan for pacemaker [facility] here or at [facility] (6) Hypertriglyceridemia: continue fish oil through capsule p.o. twice daily (7) Hypertension: continue amlodipine 10 mg p.o. daily, Lasix And aspirin 325 mg p.o. every morning (8) Nicotine dependence: Patient was advised to stop smoking, offered nicotine patch. (9) Legal blindness: Patient has glaucoma. Continue timolol 1 drop to both eyes every morning. Admission and Anticipated Discharge Date Admission Date: September 13, 2019 Subjective patient difficult to arouse this morning but eventually woke up and discussed current situation says that his breathing is better he responded well to Lasix, negative 2 liters already, Cr holding steady, electrolytes stable appreciate consult from Dr. Duncan, he is recommending pacemaker on Monday for syncope, bradycardia patient reluctant, says that [facility], will reach out to CM he is refusing steroids, unsure that he needs them lungs with some rhonchi and rales but no wheezing eating okay today Review of Systems Review of Systems: All systems reviewed & are unremarkable except as noted in HPI & below Respiratory: + cough, + dyspnea and + dyspnea on exertion; no wheezing Cardiovascular: + syncope and + edema; no chest pain and no palpitations Physical Exam Constitutional: well developed, well nourished and + obese; no acute distress Eyes: PERRL, conjunctivae normal, anicteric sclerae ENMT: external ear and nose normal, oropharynx normal Neck: trachea midline, no thyromegaly Respiratory: normal respiratory effort and + cough; no respiratory distress Auscultation: + rales and + rhonchi; no wheezes Cardiovascular: Rate/Rhythm: regular rate and regular rhythm Heart Sounds: normal S1 and normal S2; no murmur Extremities: normal capillary refill and + edema Gastrointestinal (Abdomen): normal bowel sounds, soft, nontender, no hepatosplenomegaly Musculoskeletal: no cyanosis or clubbing, extremities motor strength 5/5 Skin: no rashes, warm and dry Neurologic: patellar DTR's 2+ bilat, sensation intact and PERRL, EOMI, accommodation nl, no face palsy, no dysarthria Psychiatric: A+Ox3, euthymic affect Lymphatic: no cervical or axillary lymphadenopathy Results & Data ([facility]) Vital Signs (Past 12 Hours) Vital Signs Temp Pulse Pulse Resp BP Pulse Ox 09/14/19 11:42 37.3 C 95 H 24 140/86 90 09/14/19 07:42 37.0 C 92 H 27 H 180/74 H 95 09/14/19 07:23 94 H 09/14/19 04:07 37 C 104 H 18 179/82 H 95 Laboratory Results Laboratory Results - last 24 hr 09/13/19 09/13/19 09/13/19 17:30 17:30 17:30 WBC 8.53 RBC 4.70 Hgb 15.4 Hct 46.7 MCV 99.4 MCH 32.8 MCHC 33.0 RDW Std Deviation 49.5 H RDW Coeff of Carla 13.8 Plt Count 183 MPV 9.5 Immature Gran % (Auto) 0.4 Neut % (Auto) 73.8 Lymph % (Auto) 14.4 [place] % (Auto) 9.3 Eos % (Auto) 2.0 Baso % (Auto) 0.1 Immature Gran # (Auto) 0.03 H Neut # (Auto) 6.30 Lymph # (Auto) 1.23 [place] # (Auto) 0.79 H Eos # (Auto) 0.17 Baso # (Auto) 0.01 PT 10.5 INR 1.0 APTT 29.2 PTT Ratio 1.0 D-Dimer Sodium 134 L Potassium 4.0 Chloride 96 L Carbon Dioxide 36 H Anion Gap 2.0 L BUN 10 Creatinine 0.73 Est Cr Clr Drug Dosing 116.7 Est GFR ( Amer) 108.2 Est GFR (Non-Af Amer) 93.3 BUN/Creatinine Ratio 13.3 Glucose 112 H Estimat Average Glucose Hemoglobin A1c Calcium 8.9 Magnesium 2.1 Total Bilirubin 0.2 AST 21 ALT 23 Alkaline Phosphatase 103 Troponin I < 0.015 NT-Pro-B Natriuret Pep 207 Total Protein 7.6 Albumin 3.2 L Globulin 4.4 H Albumin/Globulin Ratio 0.7 L Triglycerides Cholesterol LDL Cholesterol, Calc VLDL Cholesterol, Calc HDL Cholesterol Cholesterol/HDL Ratio Procalcitonin TSH Urine Color Urine Appearance Urine pH Ur Specific [place] Urine Protein Urine Glucose (UA) Urine Ketones Urine Blood Urine Nitrite Urine Bilirubin Urine Urobilinogen Ur Leukocyte Esterase Urine WBC (Auto) Urine RBC (Auto) U Hyaline Cast (Auto) U Epithel Cells (Auto) Urine Bacteria (Auto) Influenza Type A (PCR) Influenza Type B (PCR) 09/13/19 09/13/19 09/13/19 17:30 17:30 17:32 WBC RBC Hgb Hct MCV MCH MCHC RDW Std Deviation RDW Coeff of Carla Plt Count MPV Immature Gran % (Auto) Neut % (Auto) Lymph % (Auto) [place] % (Auto) Eos % (Auto) Baso % (Auto) Immature Gran # (Auto) Neut # (Auto) Lymph # (Auto) [place] # (Auto) Eos # (Auto) Baso # (Auto) PT INR APTT PTT Ratio D-Dimer 660 H* Sodium Potassium Chloride Carbon Dioxide Anion Gap BUN Creatinine Est Cr Clr Drug Dosing Est GFR ( Amer) Est GFR (Non-Af Amer) BUN/Creatinine Ratio Glucose Estimat Average Glucose 126 Hemoglobin A1c 6.0 H Calcium Magnesium Total Bilirubin AST ALT Alkaline Phosphatase Troponin I NT-Pro-B Natriuret Pep Total Protein Albumin Globulin Albumin/Globulin Ratio Triglycerides Cholesterol LDL Cholesterol, Calc VLDL Cholesterol, Calc HDL Cholesterol Cholesterol/HDL Ratio Procalcitonin TSH Urine Color Urine Appearance Urine pH Ur Specific [place] Urine Protein Urine Glucose (UA) Urine Ketones Urine Blood Urine Nitrite Urine Bilirubin Urine Urobilinogen Ur Leukocyte Esterase Urine WBC (Auto) Urine RBC (Auto) U Hyaline Cast (Auto) U Epithel Cells (Auto) Urine Bacteria (Auto) Influenza Type A (PCR) Neg for Influ A Influenza Type B (PCR) Neg for Influ B 09/13/19 09/13/19 09/13/19 19:05 21:21 21:21 WBC RBC Hgb Hct MCV MCH MCHC RDW Std Deviation RDW Coeff of Carla Plt Count MPV Immature Gran % (Auto) Neut % (Auto) Lymph % (Auto) [place] % (Auto) Eos % (Auto) Baso % (Auto) Immature Gran # (Auto) Neut # (Auto) Lymph # (Auto) [place] # (Auto) Eos # (Auto) Baso # (Auto) PT INR APTT PTT Ratio D-Dimer Sodium Potassium Chloride Carbon Dioxide Anion Gap BUN Creatinine Est Cr Clr Drug Dosing Est GFR ( Amer) Est GFR (Non-Af Amer) BUN/Creatinine Ratio Glucose Estimat Average Glucose Hemoglobin A1c Calcium Magnesium Total Bilirubin AST ALT Alkaline Phosphatase Troponin I NT-Pro-B Natriuret Pep 262 Total Protein Albumin Globulin Albumin/Globulin Ratio Triglycerides Cholesterol LDL Cholesterol, Calc VLDL Cholesterol, Calc HDL Cholesterol Cholesterol/HDL Ratio Procalcitonin < 0.05 TSH 3.080 Urine Color Yellow Urine Appearance Clear Urine pH 6.0 Ur Specific [place] 1.013 Urine Protein 2+ H Urine Glucose (UA) Negative Urine Ketones Negative Urine Blood Negative Urine Nitrite Negative Urine Bilirubin Negative Urine Urobilinogen Negative Ur Leukocyte Esterase Negative Urine WBC (Auto) 0 Urine RBC (Auto) 0-4 U Hyaline Cast (Auto) 0 U Epithel Cells (Auto) 0-5 Urine Bacteria (Auto) Negative Influenza Type A (PCR) Influenza Type B (PCR) 09/14/19 09/14/19 05:52 05:52 WBC 7.82 RBC 4.48 L Hgb 15.3 Hct 46.3 MCV 103.3 H MCH 34.2 H MCHC 33.0 RDW Std Deviation 52.6 H RDW Coeff of Carla 13.9 Plt Count 181 MPV 9.5 Immature Gran % (Auto) 0.6 Neut % (Auto) 78.0 Lymph % (Auto) 14.2 [place] % (Auto) 6.5 Eos % (Auto) 0.6 Baso % (Auto) 0.1 Immature Gran # (Auto) 0.05 H Neut # (Auto) 6.09 Lymph # (Auto) 1.11 L [place] # (Auto) 0.51 Eos # (Auto) 0.05 Baso # (Auto) 0.01 PT INR APTT PTT Ratio D-Dimer Sodium 137 Potassium 4.1 Chloride 97 L Carbon Dioxide 37 H Anion Gap 4.0 BUN 7 Creatinine 0.77 Est Cr Clr Drug Dosing 114.3 Est GFR ( Amer) 105.8 Est GFR (Non-Af Amer) 91.3 BUN/Creatinine Ratio 8.8 L Glucose 116 H Estimat Average Glucose Hemoglobin A1c Calcium 8.4 L Magnesium Total Bilirubin 0.2 AST 18 ALT 24 Alkaline Phosphatase 109 Troponin I NT-Pro-B Natriuret Pep Total Protein 7.3 Albumin 3.0 L Globulin 4.3 H Albumin/Globulin Ratio 0.7 L Triglycerides 95 Cholesterol 172 LDL Cholesterol, Calc 110 VLDL Cholesterol, Calc 19 HDL Cholesterol 43 Cholesterol/HDL Ratio 4 Procalcitonin TSH Urine Color Urine Appearance Urine pH Ur Specific [place] Urine Protein Urine Glucose (UA) Urine Ketones Urine Blood Urine Nitrite Urine Bilirubin Urine Urobilinogen Ur Leukocyte Esterase Urine WBC (Auto) Urine RBC (Auto) U Hyaline Cast (Auto) U Epithel Cells (Auto) Urine Bacteria (Auto) Influenza Type A (PCR) Influenza Type B (PCR) Medications Administered Current Inpatient Medications Acetaminophen (Tylenol) 650 mg PO Q4H PRN PRN Reason: Pain or Fever Stop: 10/13/19 19:14 Al Hydrox/Mg Hydrox/Simethicone (Maalox) 15 ml PO Q4H PRN PRN Reason: Dyspepsia Stop: 10/13/19 19:14 Amlodipine Besylate (Norvasc) 10 mg PO DAILY [facility] Stop: 10/14/19 08:59 Last Admin: 09/14/19 09:01 Dose: 10 mg Documented by: Aspirin (Ecotrin) 325 mg PO QAM [facility] Stop: 10/14/19 08:59 Last Admin: 09/14/19 08:59 Dose: 325 mg Documented by: Clotrimazole (Lotrimin 1%) 1 appln EXT BID [facility] Stop: 10/13/19 21:44 Last Admin: 09/14/19 09:01 Dose: 1 appln Documented by: Fish Oil (Harrison-3 (Purified Fish Oil)) 2 gm PO BID [facility] Stop: 10/13/19 20:59 Last Admin: 09/14/19 08:59 Dose: 2 gm Documented by: Doxycycline Hyclate 100 mg/ (Dextrose) 110 mls @ 50 mls/hr IV BID [facility] Stop: 09/20/19 21:14 Last Infusion: 09/14/19 11:44 Dose: Infused Documented by: Furosemide 40 mg/ Syringe 4 mls @ 4 mls/min IV [id number] [facility] Stop: 10/14/19 08:59 Last Admin: 09/14/19 08:58 Dose: 4 mls/min Documented by: Ipratropium [place] (Atrovent 0.02% 0.5mg/2.5ml) 0.5 mg INH Q6H PRN PRN Reason: Shortness Of Breath Or Wheezing Stop: 10/13/19 20:59 Latanoprost (Xalatan Oph) 1 drops OP PM [facility] Stop: 10/13/19 20:59 Last Admin: 09/13/19 21:54 Dose: 1 drops Documented by: Levalbuterol HCl (Xopenex 0.63 Mg/3 Ml Neb) 0.63 mg NEB Q6H PRN PRN Reason: Shortness Of Breath Or Wheezing Stop: 10/13/19 20:59 Magnesium Hydroxide (Milk Of Magnesia) 30 ml PO Q12H PRN PRN Reason: Constipation Stop: 10/13/19 19:14 Magnesium Oxide (Mag-Ox) 400 mg PO DAILY [facility] Stop: 10/14/19 08:59 Last Admin: 09/14/19 09:00 Dose: 400 mg Documented by: Miscellaneous (Remove Nicoderm Patch) 1 ea N/A DAILY@0859 [facility] Stop: 10/14/19 08:58 Last Admin: 09/14/19 09:03 Dose: Not Given Documented by: Multivitamins/Minerals (Multivitamin W/ Minerals Tab) 1 tab PO DAILY [facility] Stop: 10/14/19 08:59 Last Admin: 09/14/19 09:01 Dose: 1 tab Documented by: Nicotine (Nicoderm Cq) 14 mg TD QAM [facility] Stop: 10/14/19 08:59 Last Admin: 09/14/19 09:19 Dose: Not Given Documented by: Oxycodone HCl (Roxicodone Immediate Rel) 5 mg PO Q12 PRN PRN Reason: Pain Stop: 09/28/19 09:11 Last Admin: 09/14/19 10:18 Dose: 5 mg Documented by: Polyethylene Glycol (Miralax Powder Packet) 17 gm PO DAILY PRN PRN Reason: Constipation Stop: 10/13/19 19:14 Timolol Maleate (Timoptic 0.25% Oph) 1 drops OP QAM [facility] Stop: 10/14/19 08:59 Last Admin: 09/14/19 09:03 Dose: 1 drops Documented by: Trazodone HCl (Desyrel) 100 mg PO HS [facility] Stop: 10/13/19 20:59 Last Admin: 09/13/19 21:54 Dose: 100 mg Documented by: Vitamin D (Vitamin D3) 1,000 units PO DAILY [facility] Stop: 10/14/19 08:59 Last Admin: 09/14/19 08:59 Dose: 1,000 units Documented by: PG Care Time/CCT Total # of Minutes Spent Total Time Spent with Patient: Total time spent is greater than 50% in coordination of care (as documented) at patient's floor/unit and/or counseling patient: Coding Level of Care Code 50604 Subseq Hosp Care Lvl 3 Diagnoses Acute respiratory failure with hypoxia J96.01 Acute exacerbation of congestive heart failure I50.9 Sick sinus syndrome I49.5 COPD exacerbation J44.1 Syncope R55 Syncope type: unspecified Hypertriglyceridemia E78.1 Hypertension I10 Nicotine dependence F17.200 Legal blindness H54.8 (1) Syncope Syncope type: unspecified Qualified Code(s): R55 - Syncope and collapse
[2019-09-14] MEDS ORDERED: BUTALBITAL/ASPIRIN/CAFFEINE 1 TAB TAB PO PRN (16:11)
--- NOTE | 2019-09-14 16:22 | XCELERA ---
[id number] [id number]
[2019-09-14] MEDS: diazePAM 5 MG TABLET PO PRN ×2 (16:42→22:20)
[2019-09-14] MEDS: TRAZODONE HCL 100 MG TAB PO SCH (19:55)
[2019-09-14] MEDS: LATANOPROST 0.005% OP SOLN 2.5 ML BTL OP SCH (19:56)
[2019-09-14] MEDS ORDERED: MoRPHine SULFATE 2 MG/ML CARP IV STA (20:21)
[2019-09-15 06:03] LABS: Basophils # (auto) 0.02 K/uL (0-0.2); Basophils % (auto) 0.2 %; Eosinophils # (auto) 0.09 K/uL (0-0.5); Hemoglobin 14.8 g/dL (14.0-18.0); Immature Granulocytes # (auto) 0.03 K/uL (0.00-0.02); Immature Granulocytes % (auto) 0.3 %; Lymphocytes # (auto) 1.39 K/uL (1.2-3.4); Lymphocytes % (auto) 15.9 %; Mean Corpuscular Hgb Conc 32.2 g/dL (32-36); Mean Corpuscular Volume 102.4 fL (80-100); Mean Platelet Volume 9.5 fL (7.4-10.4); Monocytes # (auto) 0.94 K/uL (0.11-0.59); Monocytes % (auto) 10.7 %; Neutrophils # (auto) 6.28 K/uL (1.4-6.5); Neutrophils % (auto) 71.9 %; Platelet Count 179 K/uL (130-400); RDW Coefficient of Variation 13.8 % (11.5-14.5); RDW Standard Deviation 51.4 fL (36.4-46.3); Red Blood Count 4.49 M/uL (4.7-6.1); White Blood Count 8.75 K/uL (4.8-10.8)
[2019-09-15 06:32] LABS: Albumin Level 3.2 gm/dl (3.4-5.0); BUN Creatinine Ratio 13.6 (10-20); Calcium 8.6 mg/dl (8.5-10.1); Creatinine Clr Calc Pharmacy 100.4 ml/min; Est GFR (African American) 101.1; Est GFR (Non-African American) 87.2; Potassium 4.1 mmol/L (3.5-5.1)
[2019-09-15 06:35] LABS: Albumin Globulin Ratio 0.7 (0.9-2); Bilirubin,Total 0.3 mg/dl (0.2-1); Globulin 4.5 gm/dl (2.5-4.0); Total Protein 7.7 gm/dl (6.4-8.2)
[2019-09-15] MEDS: DOXYCYCLINE HYCLATE 100 MG in DEXTROSE 5% 100 ML IV SCH ×2 (09:08→20:28)
[2019-09-15] MEDS: CHOLECALCIFEROL 1,000 UNITS 25 MCG TAB PO SCH (09:08)
[2019-09-15] MEDS: FUROSEMIDE 40 MG in SYRINGE 0 ML IV SCH ×2 (09:08→17:01)
[2019-09-15] MEDS: MAGNESIUM OXIDE 400 MG TAB PO SCH (09:08)
[2019-09-15] MEDS: CEROVITE ADV FORMULA TAB PO SCH (09:08)
[2019-09-15] MEDS: CLOTRIMAZOLE 1% CR 15 GM TUBE EXT SCH ×2 (09:09→20:26)
[2019-09-15] MEDS: TIMOLOL MALEATE 0.25% OP SOLN 5 ML BTL OP SCH (09:09)
[2019-09-15] MEDS: OMEGA-3 (PURIFIED FISH OIL) 1 GM CAP PO SCH ×3 (09:09→20:33)
[2019-09-15] MEDS: AMLODIPINE BESYLATE 5 MG TAB PO SCH (09:09)
[2019-09-15] MEDS: ASPIRIN 325 MG ECTAB PO SCH (09:10)
[2019-09-15] MEDS: NICOTINE 14 MG/24 HR PATCH TD SCH (09:12)
[2019-09-15] MEDS: diazePAM 5 MG TABLET PO PRN (09:58)
[2019-09-15] MEDS: OXYCODONE HCL IR 5 MG TAB (IMMEDIATE RELEASE) PO PRN (09:58)
--- NOTE | 2019-09-15 10:22 | Psychiatric Consultation ---
Date of Consultation September 15, 2019 Impression / Recommendations Impression Dr. Torrey Reyes was directly involved in review and discussion of the patient's case and participated in medical decision making regarding treatment recommendations. RECOMMENDATIONS: 09/14 - Pt does admit to a history of PTSD and states he has been trialed on psychotropic medications in the past without significant benefit. Pt is declining initiation of medications for anxiety or depression at this time. Given his anticipated pacemaker insertion, would not suggest initiating an antidepressant medication until cleared to do so by cardiology. Rzla-koy-dxmq, patient is unwilling for a trial at this time - Outpatient psychiatric services were offered to the patient, who is declining at this time. Will continue to be available to make referrals should patient change his mind - Pt admits to hopelessness related to his medical condition, age, and loneliness - but denies suicidal ideation or a history of such. There is no criteria for inpatient psychiatric hospitalization - No additional recommendations at this time, though please reach out to our service with any questions or updates Psych History Identifying Data 69-year-old male admitted medically on 09/13/2019 after presenting to the ED with shortness of breath following syncopal event. Pt has history of CHF, COPD, and sick sinus syndrome - and pacemaker implantation is being recommended. Psychiatric consultation was requested to evaluate patient for depression and anxiety. Chief Complaint "I've been doing...don't you worry about it." History of Present Illness Titus Yang is a 69-year-old male admitted medically on 09/13/2019 after presenting to the ED with shortness of breath following a syncopal episode. PMH includes COPD, CHF, legal blindness, sick sinus syndrome, HLD, HTN, nicotine dependence, and PTSD. Psychiatric consultation was requested to evaluate patient for depression and anxiety. Pt is only superficially cooperative with conversation, dismissing questions and declining to answer at times. He begins conversation by telling this provider "not to worry about it" as we discuss his mood. Pt spends most of the conversation reverting back to conversations regarding is canceled outpatient appointments and the procedure scheduled to be completed at [facility]. Pt does admit to history of anxiety and depression, stating he is a and that this should not be unusual. When asked about the presence of suicidality, the patient states "when you spend a big part of your life killing people who are trying to kill you, suicide is the last thing you think of. You're a survivor, you don't want to kill yourself." Pt then states, "I'm just tired, I'd be ok to be done and get this over with." When asked about willingness for outpatient therapy, the patient declines. He was asked about his willingness to consider medications, to which he states "Nope! You asked if I was suicidal? It's the medications that have made me suicidal in the past." Pt declines other services we are willing to offer to him at this time. Past Psychiatric History Current Psychiatric Diagnosis: PTSD Outpatient Services: None presently, [facility] Admissions: Denies History of Previous Suicide Attempt: No Past Medication Trials: Unable to recall, but admits to several psychiatric medication trials previously Allergies Allergy/AdvReac Type Severity Reaction Status Date / Time gabapentin Allergy Unknown Unverified 09/13/19 18:01 muscle relaxers Allergy Unknown Uncoded 09/13/19 18:01 Home Medications Home Medications Medication Instructions Recorded Confirmed Type Nugenix 1 cap PO DAILY 09/13/19 History amlodipine 10 mg PO DAILY 09/13/19 09/13/19 History aspirin [Danielle Aspirin] 325 mg PO QAM 09/13/19 09/13/19 History ahujupc-sulvkapihegde-gquvutum 1 tab PO Q6H PRN 09/13/19 09/13/19 History [Excedrin Extra Strength] fqsmzfoxui-xgjqvgeidfcne-ldwk 1 tab PO Q6H PRN 09/13/19 09/13/19 History cholecalciferol (vitamin D3) 1,000 unit PO DAILY 09/13/19 09/13/19 History [Vitamin D3] diazepam 5 mg PO TID PRN 09/13/19 09/13/19 History furosemide 40 mg PO BID 09/13/19 09/13/19 History latanoprost 1 drp OPHTHALMIC (EYE) PM 09/13/19 09/13/19 History magnesium 400 mg PO DAILY 09/13/19 09/13/19 History mv,Ca,dkq-xdaw-DU-lycopene 1 tab PO DAILY 09/13/19 09/13/19 History [Centrum Men] omega 5-exr-gqs-fish oil 2 cap PO BID 09/13/19 09/13/19 History sildenafil 100 mg PO DAILY PRN 09/13/19 09/13/19 History timolol 1 drp OPHTHALMIC (EYE) QAM 09/13/19 09/13/19 History trazodone 100 mg PO HS 09/13/19 09/13/19 History Substance Abuse History Pt admits to liaison that he occasionally utilizes marijuana and alcohol to "numb" himself. 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 Patient is appropriately dressed, wearing a hospital gown. Patient is also wearing sunglasses and is legally blind. Patient does appear unkempt and hygiene seems limited. Eye Contact: + poor eye contact (legally blind, wearing sunglasses) Motor Behavior: no abnormal motor movements (Observed while sitting upright on edge of bed) Speech: + abnormal rate/rhythm/volume of speech Speech is garbled, very difficult to understand at times. Patient does have a cynical and xauhji-ef-sbnp tone, bordering on irritability at times. Affect: + flat affect and + irritable affect (At times) Mood: + depressed mood ("I've been doing") "I'm 69 years old, I'm alone. How would that make you feel?" Thought Process: goal directed thought process and clear/coherent thought process Thought Content: reality based without delusions, + hopelessness and + loneliness Suicidal Thoughts: denies suicidal thoughts, denies suicidal plan and denies suicidal intent Homicidal Thoughts: denies homicidal thoughts Hallucinations: no auditory hallucinations and no visual hallucinations Cognition: attention grossly intact and language grossly intact Insight: + fair insight Judgement: + fair judgement Vital Signs (Past 24 Hours): Last Vital Signs Temp 36.9 C 09/15/19 07:11 Pulse 87 09/15/19 07:11 Resp 23 09/15/19 07:11 BP 168/75 H 09/15/19 07:11 Pulse Ox 92 09/15/19 07:11 Review of Systems Constitutional: reports generalized weakness Cardiovascular: denied Respiratory: reports cough and shortness of breath Gastrointestinal: denied Neurological: denied Psychiatric: denies symptoms other than stated above Total of at least 10 systems reviewed, pertinent positives as above and in HPI. Results & Data (PSY) Medications Administered Amlodipine Besylate (Norvasc) 10 mg PO DAILY [facility] Stop: 10/14/19 08:59 Last Admin: 09/15/19 09:09 Dose: 10 mg Documented by: [id number] Admin: 09/14/19 09:01 Dose: 10 mg Documented by: [id number] Aspirin (Ecotrin) 325 mg PO QAM AJITH Stop: 10/14/19 08:59 Last Admin: 09/15/19 09:10 Dose: 325 mg Documented by: [id number] Admin: 09/14/19 08:59 Dose: 325 mg Documented by: [id number] Butalbital/Aspirin/Caffeine (Fiorinal) 1 tab PO Q4H PRN PRN Reason: Headache Stop: 10/14/19 16:10 Last Admin: 09/14/19 16:47 Dose: 1 tab Documented by: [id number] Clotrimazole (Lotrimin 1%) 1 appln EXT BID AJITH Stop: 10/13/19 21:44 Last Admin: 09/15/19 09:09 Dose: 1 appln Documented by: [id number] Admin: 09/14/19 19:56 Dose: 1 appln Documented by: [id number] Admin: 09/14/19 09:01 Dose: 1 appln Documented by: [id number] Admin: 09/13/19 21:54 Dose: 1 appln Documented by: [id number] Diazepam (Valium) 5 mg PO TID PRN PRN Reason: Anxiety Stop: 10/14/19 16:12 Last Admin: 09/15/19 09:58 Dose: 5 mg Documented by: [id number] Admin: 09/14/19 22:20 Dose: 5 mg Documented by: [id number] Admin: 09/14/19 16:42 Dose: 5 mg Documented by: [id number] Fish Oil (Naples-3 (Purified Fish Oil)) 2 gm PO BID AJITH Stop: 10/13/19 20:59 Last Admin: 09/15/19 09:09 Dose: 2 gm Documented by: [id number] Admin: 09/14/19 19:56 Dose: 2 gm Documented by: [id number] Admin: 09/14/19 08:59 Dose: 2 gm Documented by: [id number] Admin: 09/13/19 21:54 Dose: 2 gm Documented by: [id number] Doxycycline Hyclate 100 mg/ (Dextrose) 110 mls @ 50 mls/hr IV BID AJITH Stop: 09/20/19 21:14 Last Infusion: 09/15/19 10:00 Dose: 0 mls/hr Documented by: [id number] Admin: 09/15/19 09:08 Dose: 50 mls/hr Documented by: [id number] Infusion: 09/14/19 22:49 Dose: 0 mls/hr Documented by: [id number] Admin: 09/14/19 19:55 Dose: 50 mls/hr Documented by: [id number] Infusion: 09/14/19 11:44 Dose: 0 mls/hr Documented by: [id number] Admin: 09/14/19 09:32 Dose: 50 mls/hr Documented by: [id number] Infusion: 09/14/19 00:27 Dose: 0 mls/hr Documented by: [id number] Admin: 09/13/19 21:53 Dose: 50 mls/hr Documented by: [id number] Furosemide 40 mg/ Syringe 4 mls @ 4 mls/min IV [id number] AJITH Stop: 10/14/19 08:59 Last Admin: 09/15/19 09:08 Dose: 4 mls/min Documented by: [id number] Admin: 09/14/19 16:43 Dose: 4 mls/min Documented by: [id number] Admin: 09/14/19 08:58 Dose: 4 mls/min Documented by: [id number] Latanoprost (Xalatan Oph) 1 drops OP PM AJITH Stop: 10/13/19 20:59 Last Admin: 09/14/19 19:56 Dose: 1 drops Documented by: [id number] Admin: 09/13/19 21:54 Dose: 1 drops Documented by: [id number] Magnesium Oxide (Mag-Ox) 400 mg PO DAILY [facility] Stop: 10/14/19 08:59 Last Admin: 09/15/19 09:08 Dose: 400 mg Documented by: [id number] Admin: 09/14/19 09:00 Dose: 400 mg Documented by: [id number] Miscellaneous (Remove Nicoderm Patch) 1 ea N/A DAILY@59 [facility] Stop: 10/14/19 08:58 Last Admin: 09/15/19 09:12 Dose: Not Given Documented by: [id number] Admin: 09/14/19 09:03 Dose: Not Given Documented by: [id number] Multivitamins/Minerals (Multivitamin W/ Minerals Tab) 1 tab PO DAILY [facility] Stop: 10/14/19 08:59 Last Admin: 09/15/19 09:08 Dose: 1 tab Documented by: [id number] Admin: 09/14/19 09:01 Dose: 1 tab Documented by: [id number] Nicotine (Nicoderm Cq) 14 mg TD QAM [facility] Stop: 10/14/19 08:59 Last Admin: 09/15/19 09:12 Dose: Not Given Documented by: [id number] Admin: 09/14/19 09:19 Dose: Not Given Documented by: [id number] Oxycodone HCl (Roxicodone Immediate Rel) 5 mg PO Q12 PRN PRN Reason: Pain Stop: 09/28/19 09:11 Last Admin: 09/15/19 09:58 Dose: 5 mg Documented by: [id number] Admin: 09/14/19 22:20 Dose: 5 mg Documented by: [id number] Admin: 09/14/19 10:18 Dose: 5 mg Documented by: [id number] Timolol Maleate (Timoptic 0.25% Oph) 1 drops OP QAM [facility] Stop: 10/14/19 08:59 Last Admin: 09/15/19 09:09 Dose: 1 drops Documented by: [id number] Admin: 09/14/19 09:03 Dose: 1 drops Documented by: [id number] Trazodone HCl (Desyrel) 100 mg PO HS [facility] Stop: 10/13/19 20:59 Last Admin: 09/14/19 19:55 Dose: 100 mg Documented by: [id number] Admin: 09/13/19 21:54 Dose: 100 mg Documented by: [id number] Vitamin D (Vitamin D3) 1,000 units PO DAILY AJITH Stop: 10/14/19 08:59 Last Admin: 09/15/19 09:08 Dose: 1,000 units Documented by: [id number] Admin: 09/14/19 08:59 Dose: 1,000 units Documented by: [id number] Coding Level of Care Code 14617 U Intl Hosp Care Lvl 2
--- NOTE | 2019-09-15 11:25 | Cardiology Progress Note ---
Date of Service September 15, 2019 Assessment & Plan (1) Syncope: He has had several witnessed syncopal events, one in July was evaluated at [facility] where a 12-second pauses reported, he has had recent syncopal events leading to his admission here. I think he is also being evaluated for seizure activity although bradycardia seems more likely and I would probably treat that with a pacemaker and only if there are recurrent episodes consider further evaluation. (2) Bradycardia: He has multiple reported pauses on event monitoring and perhaps on telemetry monitoring at [facility] emergency room in July where a 12-second pauses reported. I have not seen specific diagnoses mentioned for the pauses, I do not know if they are sinus pauses or if they are due to heart block, it does not matter too much but it might be helpful to know. I have not seen these records showing the pauses but they could probably be obtained and it probably would be a good idea before pacemaker implantation. I think he clearly needs a pacemaker based on the data that I have (which does not include rhythm strips to review as noted), I have recommended this to him. He continues to talk about a lot of extraneous information such as [facility] has one on order, [facility], he would like it done at [place], etc. If he wants to have it done here I can do it tomorrow, if not I will leave it up to him and the primary service to make arrangements. I would implant a dual-chamber pacemaker. I will make him n.p.o. in case he can do it tomorrow but will make no other arrangements. (3) RBBB (right bundle branch block): He has a right bundle branch block pattern on his electrocardiogram, this indicates some AV conduction disease although it does not necessarily mean he had heart block as a cause of his pauses. No specific treatment or further evaluation for this. (4) Hypertension: His blood pressure is quite elevated, I would not use beta-blockers or negative chronotropic's to treat it. (5) COPD exacerbation: He has longstanding COPD and his lungs do not sound good, as long as he can lay supine without being hypoxic we should be able to place the pacemaker although a few days of respiratory therapy and antibiotics may be in order before pacemaker implantation. It does not appear to be an emergency, has been going on for at least several months although he has had a number of syncopal events likely related to it. I cannot exclude the possibility that his pauses are due to hypoxia, given the magnitude of them it seems little unlikely and perhaps review of the tracings could help with that. Normally with pauses of that duration and clinical syncope even if we think hypoxia might be a contributing factor I would favor a pacemaker. Admission and Anticipated Discharge Date Admission Date: September 13, 2019 Subjective He feels that his breathing is better. He still seems very confused as to what arrangements have been made for the pacemaker. Physical Exam Physical Exam: Constitutional: Alert, cooperative and in no distress. HEENT: Unremarkable Neck: No jugular venous distention, carotid pulses are normal and equal bilaterally without bruits. Pulmonary: Rhonchi and prolonged expiration on auscultation bilaterally. Cardiac: Regular rhythm with no murmur, gallop or rub. Abdomen: Soft, nontender with normal bowel sounds. Extremities: Bilateral pretibial edema. Distal pulses intact. Neurologic: No focal findings. Gait is steady. Skin: No rash, ecchymoses or petechiae. Results & Data ([facility]) Vital Signs (Past 12 Hours) Vital Signs Temp Pulse Pulse Resp BP Pulse Ox 09/15/19 11:00 36.8 C 71 21 150/69 H 94 09/15/19 07:11 36.9 C 87 23 168/75 H 92 09/15/19 03:44 37.0 C 93 H 20 187/92 H 94 09/15/19 00:14 37.1 C 92 H 24 167/71 H 91 09/15/19 00:00 96 H Laboratory Results Cardiac Enzymes 09/15/19 Range/Units 05:44 AST 17 (15-37) U/L CBC 09/15/19 Range/Units 05:44 WBC 8.75 (4.8-10.8) K/uL RBC 4.49 L (4.7-6.1) M/uL Hgb 14.8 (14.0-18.0) g/dL Hct 46.0 (42-52) % Plt Count 179 (130-400) K/uL Neut # (Auto) 6.28 (1.4-6.5) K/uL Lymph # (Auto) 1.39 (1.2-3.4) K/uL Perry # (Auto) 0.94 H (0.11-0.59) K/uL Eos # (Auto) 0.09 (0-0.5) K/uL Baso # (Auto) 0.02 (0-0.2) K/uL Comprehensive Metabolic Panel 09/15/19 Range/Units 05:44 Sodium 132 L (136-145) mmol/L Potassium 4.1 (3.5-5.1) mmol/L Chloride 89 L (98-107) mmol/L Carbon Dioxide 38 H (21-32) mmol/L BUN 12 D (7-18) mg/dl Creatinine 0.86 (0.6-1.4) mg/dl Glucose 136 H (70-99) mg/dl Calcium 8.6 (8.5-10.1) mg/dl AST 17 (15-37) U/L ALT 25 (12-78) U/L Alkaline Phosphatase 112 (45-117) U/L Total Protein 7.7 (6.4-8.2) gm/dl Albumin 3.2 L (3.4-5.0) gm/dl Intake and Output 09/14/19 09/15/19 09/15/19 21:59 06:59 14:59 Intake Total 43.333 / 43.333 Output Total 300 / 300 Balance -256.667 / -256.667 Intake: IV 43.333 / 43.333 Vibramycin 100 mg In D5 100 ml 43.333 / 43.333 @ 50 mls/hr IV BID AJITH Rx#: [id number] Oral Output: Urine 300 / 300 Other: # Unmeasured Voids Weight Diagnostic Findings Telemetry: Sinus rhythm in the 80s PG Care Time/CCT Total # of Minutes Spent Total Time Spent with Patient: Total time spent is greater than 50% in coordination of care (as documented) at patient's floor/unit and/or counseling patient: Coding Level of Care Code 39513 Subseq Hosp Care Lvl 2 Diagnoses Syncope R55 Syncope type: unspecified Bradycardia R00.1 RBBB (right bundle branch block) I45.10 Hypertension I10 COPD exacerbation J44.1 (1) Syncope Syncope type: unspecified Qualified Code(s): R55 - Syncope and collapse
--- NOTE | 2019-09-15 16:01 | Hospitalist Progress Note ---
Date of Service September 15, 2019 Assessment & Plan (1) Acute respiratory failure with hypoxia: likely combination of some bronchitis/bronchial pneumonia and acute on chronic heart failure echo shows an EF of 65% with type I diastolic dysfunction, impaired relaxation stop Solu Medrol as he refuses to take continue levalbuterol/ipratropium, Doxycycline (would complete 7 days) diuresing well with Lasix 40mg IV BID continue daily weights, down by 5 lbs since yesterday concerned that I/O are not accurate as he is positive fluid balance, RN reports he is urinating a lot continue fluid restriction (2) Acute exacerbation of congestive heart failure: Patient clinically appears volume overloaded and chest x-ray is concerning pulmonary congestion. He could be above his crude weight baseline approximately 20 to 30 pounds. echo with EF of 65% and diastolic dysfunction this is acute on chronic heart failure with preserved EF responding well to Lasix, weight down 5 lbs since admission continue Lasix 40mg IV BID Cr is stable at 0.8, repeat tomorrow strict I/O, fluid restriction (3) Sick sinus syndrome: echo with EF 65%, no valve disease appreciate consult from Dr. Duncan, he recommends pacemaker NPO after midnight to try for procedure tomorrow patient keeps talking about how he is not sure if it can be done here with the [place] placed a formal consult for [facility] nurse navigator to look into this tomorrow, d/w case management (4) COPD exacerbation: mild, more like bronchitis stop steroids as he refuses Doxycycline, Ipratropium breathing better, coughing a little less (5) Syncope: As discussed above likely due to bradycardia, plan for pacemaker tomorrow if okay with the [facility] (6) Hypertriglyceridemia: continue fish oil through capsule p.o. twice daily (7) Hypertension: continue amlodipine 10 mg p.o. daily, Lasix And aspirin 325 mg p.o. every morning (8) Nicotine dependence: Patient was advised to stop smoking, offered nicotine patch. (9) Legal blindness: Patient has glaucoma. Continue timolol 1 drop to both eyes every morning. Admission and Anticipated Discharge Date Admission Date: September 13, 2019 Subjective patient sitting at the edge of the bed, upset about the prospect of having to cancel [facility] appt he spoke with the [facility] and had the RN get on the phone, the [facility] was unsure of the appt he was talking about appreciate Dr. Duncan's input, he recommends getting permanent pacemaker here, can do it tomorrow patient concerned if the [facility] would approve, told him we can contact them tomorrow he is breathing better since admission he is rather non-committal about whether or not he is making more urine his weight is going down by about 5 lbs from the day before, RN reports he is making fair amount of urine he c/o headache which is chronic his back pain is reasonably well controlled and the valium is helping his nerves he says he feels a little foggy reviewed labs, CBC normal BMp shows Na 132, CO2 38, BUN 12 and Cr of 0.86, stable with aggressive diuresis Review of Systems Review of Systems: All systems reviewed & are unremarkable except as noted in HPI & below Constitutional: + fatigue, + weakness and + weight loss; no fever, no chills and no sweats Respiratory: + cough, + dyspnea, + dyspnea on exertion and + sputum production; no wheezing Cardiovascular: + dyspnea on exertion and + edema; no chest pain and no palpitations Gastrointestinal: no abdominal pain, no nausea, no vomiting, no constipation and no diarrhea/loose stools Genitourinary: no dysuria Neurologic: + headache(s) and + confusion Physical Exam Constitutional: well developed, well nourished and + obese; no acute distress Eyes: PERRL, conjunctivae normal, anicteric sclerae ENMT: external ear and nose normal, oropharynx normal Neck: trachea midline, no thyromegaly Respiratory: normal respiratory effort and + cough; no respiratory distress Auscultation: + rales and + rhonchi; no wheezes Cardiovascular: Rate/Rhythm: regular rate and regular rhythm Heart Sounds: normal S1 and normal S2; no murmur Extremities: normal capillary refill and + edema Gastrointestinal (Abdomen): normal bowel sounds, soft, nontender, no hepatosplenomegaly Musculoskeletal: no cyanosis or clubbing, extremities motor strength 5/5 Skin: no rashes, warm and dry Neurologic: patellar DTR's 2+ bilat, sensation intact and PERRL, EOMI, accommodation nl, no face palsy, no dysarthria Psychiatric: A+Ox3, euthymic affect Lymphatic: no cervical or axillary lymphadenopathy Results & Data ([facility]) Vital Signs (Past 12 Hours) Vital Signs Temp Pulse Resp BP BP Pulse Ox 09/15/19 15:28 36.7 C 94 H 22 127/98 91 09/15/19 11:00 36.8 C 71 21 150/69 H 94 09/15/19 07:11 36.9 C 87 23 168/75 H 92 Laboratory Results Laboratory Results - last 24 hr 09/15/19 09/15/19 05:44 05:44 WBC 8.75 RBC 4.49 L Hgb 14.8 Hct 46.0 MCV 102.4 H MCH 33.0 MCHC 32.2 RDW Std Deviation 51.4 H RDW Coeff of Carla 13.8 Plt Count 179 MPV 9.5 Immature Gran % (Auto) 0.3 Neut % (Auto) 71.9 Lymph % (Auto) 15.9 [place] % (Auto) 10.7 Eos % (Auto) 1.0 Baso % (Auto) 0.2 Immature Gran # (Auto) 0.03 H Neut # (Auto) 6.28 Lymph # (Auto) 1.39 [place] # (Auto) 0.94 H Eos # (Auto) 0.09 Baso # (Auto) 0.02 Sodium 132 L Potassium 4.1 Chloride 89 L Carbon Dioxide 38 H Anion Gap 5.0 BUN 12 D Creatinine 0.86 Est Cr Clr Drug Dosing 100.4 Est GFR ( Amer) 101.1 Est GFR (Non-Af Amer) 87.2 BUN/Creatinine Ratio 13.6 Glucose 136 H Calcium 8.6 Total Bilirubin 0.3 AST 17 ALT 25 Alkaline Phosphatase 112 Total Protein 7.7 Albumin 3.2 L Globulin 4.5 H Albumin/Globulin Ratio 0.7 L Medications Administered Current Inpatient Medications Acetaminophen (Tylenol) 650 mg PO Q4H PRN PRN Reason: Pain or Fever Stop: 10/13/19 19:14 Al Hydrox/Mg Hydrox/Simethicone (Maalox) 15 ml PO Q4H PRN PRN Reason: Dyspepsia Stop: 10/13/19 19:14 Amlodipine Besylate (Norvasc) 10 mg PO DAILY [facility] Stop: 10/14/19 08:59 Last Admin: 09/15/19 09:09 Dose: 10 mg Documented by: Aspirin (Ecotrin) [facility] Stop: 10/14/19 08:59 Last Admin: 09/15/19 09:10 Dose: 325 mg Documented by: Butalbital/Aspirin/Caffeine (Fiorinal) 1 tab PO Q4H PRN PRN Reason: Headache Stop: 10/14/19 16:10 Last Admin: 09/14/19 16:47 Dose: 1 tab Documented by: Clotrimazole (Lotrimin 1%) 1 appln EXT BID AJITH Stop: 10/13/19 21:44 Last Admin: 09/15/19 09:09 Dose: 1 appln Documented by: Diazepam (Valium) 5 mg PO TID PRN PRN Reason: Anxiety Stop: 10/14/19 16:12 Last Admin: 09/15/19 09:58 Dose: 5 mg Documented by: Fish Oil ([place]-3 (Purified Fish Oil)) 2 gm PO BID AJITH Stop: 10/13/19 20:59 Last Admin: 09/15/19 09:09 Dose: 2 gm Documented by: Doxycycline Hyclate 100 mg/ (Dextrose) 110 mls @ 50 mls/hr IV BID AJTIH Stop: 09/20/19 21:14 Last Infusion: 09/15/19 12:21 Dose: Infused Documented by: Furosemide 40 mg/ Syringe 4 mls @ 4 mls/min IV BID17 AJITH Stop: 10/14/19 08:59 Last Admin: 09/15/19 09:08 Dose: 4 mls/min Documented by: Ipratropium [place] (Atrovent 0.02% 0.5mg/2.5ml) 0.5 mg INH Q6H PRN PRN Reason: Shortness Of Breath Or Wheezing Stop: 10/13/19 20:59 Latanoprost (Xalatan Oph) 1 drops OP PM AJITH Stop: 10/13/19 20:59 Last Admin: 09/14/19 19:56 Dose: 1 drops Documented by: Levalbuterol HCl (Xopenex 0.63 Mg/3 Ml Neb) 0.63 mg NEB Q6H PRN PRN Reason: Shortness Of Breath Or Wheezing Stop: 10/13/19 20:59 Magnesium Hydroxide (Milk Of Magnesia) 30 ml PO Q12H PRN PRN Reason: Constipation Stop: 10/13/19 19:14 Magnesium Oxide (Mag-Ox) 400 mg PO DAILY [facility] Stop: 10/14/19 08:59 Last Admin: 09/15/19 09:08 Dose: 400 mg Documented by: Miscellaneous (Remove Nicoderm Patch) 1 ea N/A DAILY@0859 [facility] Stop: 10/14/19 08:58 Last Admin: 09/15/19 09:12 Dose: Not Given Documented by: Multivitamins/Minerals (Multivitamin W/ Minerals Tab) 1 tab PO DAILY AJITH Stop: 10/14/19 08:59 Last Admin: 09/15/19 09:08 Dose: 1 tab Documented by: Nicotine (Nicoderm Cq) 14 mg TD QAM AJITH Stop: 10/14/19 08:59 Last Admin: 09/15/19 09:12 Dose: Not Given Documented by: Oxycodone HCl (Roxicodone Immediate Rel) 5 mg PO Q12 PRN PRN Reason: Pain Stop: 09/28/19 09:11 Last Admin: 09/15/19 09:58 Dose: 5 mg Documented by: Polyethylene Glycol (Miralax Powder Packet) 17 gm PO DAILY PRN PRN Reason: Constipation Stop: 10/13/19 19:14 Timolol Maleate (Timoptic 0.25% Oph) 1 drops OP QAM AJITH Stop: 10/14/19 08:59 Last Admin: 09/15/19 09:09 Dose: 1 drops Documented by: Trazodone HCl (Desyrel) 100 mg PO HS [facility] Stop: 10/13/19 20:59 Last Admin: 09/14/19 19:55 Dose: 100 mg Documented by: Vitamin D (Vitamin D3) 1,000 units PO DAILY AJITH Stop: 10/14/19 08:59 Last Admin: 09/15/19 09:08 Dose: 1,000 units Documented by: PG Care Time/CCT Total # of Minutes Spent Total Time Spent with Patient: Total time spent is greater than 50% in coordination of care (as documented) at patient's floor/unit and/or counseling patient: Coding Level of Care Code 98620 Subseq Hosp Care Lvl 3 Diagnoses Acute respiratory failure with hypoxia J96.01 Acute exacerbation of congestive heart failure I50.9 Sick sinus syndrome I49.5 COPD exacerbation J44.1 Syncope R55 Syncope type: unspecified Hypertriglyceridemia E78.1 Hypertension I10 Nicotine dependence F17.200 Legal blindness H54.8 (1) Syncope Syncope type: unspecified Qualified Code(s): R55 - Syncope and collapse
[2019-09-15] MEDS: TRAZODONE HCL 100 MG TAB PO SCH ×2 (20:25→20:32)
[2019-09-15] MEDS: LATANOPROST 0.005% OP SOLN 2.5 ML BTL OP SCH (20:25)
[2019-09-16 06:26] LABS: Basophils # (auto) 0.01 K/uL (0-0.2); Basophils % (auto) 0.1 %; Eosinophils # (auto) 0.03 K/uL (0-0.5); Eosinophils % (auto) 0.4 %; Hematocrit (blood only) 47.6 % (42-52); Immature Granulocytes # (auto) 0.03 K/uL (0.00-0.02); Immature Granulocytes % (auto) 0.4 %; Lymphocytes # (auto) 1.37 K/uL (1.2-3.4); Lymphocytes % (auto) 18.1 %; Mean Corpuscular Hemoglobin 32.7 pg (25-34); Mean Corpuscular Hgb Conc 31.5 g/dL (32-36); Mean Corpuscular Volume 103.7 fL (80-100); Mean Platelet Volume 9.7 fL (7.4-10.4); Monocytes # (auto) 0.77 K/uL (0.11-0.59); Monocytes % (auto) 10.1 %; Neutrophils # (auto) 5.38 K/uL (1.4-6.5); Neutrophils % (auto) 70.9 %; Platelet Count 187 K/uL (130-400); RDW Coefficient of Variation 13.4 % (11.5-14.5); RDW Standard Deviation 50.3 fL (36.4-46.3); Red Blood Count 4.59 M/uL (4.7-6.1); White Blood Count 7.59 K/uL (4.8-10.8)
[2019-09-16 07:04] LABS: Albumin Globulin Ratio 0.7 (0.9-2); BUN Creatinine Ratio 15.5 (10-20); Bilirubin,Total 0.3 mg/dl (0.2-1); Creatinine Clr Calc Pharmacy 119.7 ml/min; Est GFR (African American) 108.8; Est GFR (Non-African American) 93.9; Globulin 4.6 gm/dl (2.5-4.0); Potassium 4.4 mmol/L (3.5-5.1); Total Protein 7.6 gm/dl (6.4-8.2)
[2019-09-16] MEDS ORDERED: lisinopriL 10 MG TAB PO SCH (09:00)
[2019-09-16] MEDS: CLOTRIMAZOLE 1% CR 15 GM TUBE EXT SCH ×2 (09:12→20:04)
[2019-09-16] MEDS: FUROSEMIDE 40 MG in SYRINGE 0 ML IV SCH (09:12)
[2019-09-16] MEDS: NICOTINE 14 MG/24 HR PATCH TD SCH (09:13)
[2019-09-16] MEDS: TIMOLOL MALEATE 0.25% OP SOLN 5 ML BTL OP SCH (09:13)
[2019-09-16] MEDS ORDERED: ALBUT/IPRATROP 3MG/0.5MG NEB 3 ML VIAL NEB STA (10:11)
--- NOTE | 2019-09-16 10:14 | Hospitalist Progress Note ---
Date of Service September 16, 2019 Assessment & Plan (1) Acute hypercapnic respiratory failure: Patient with severe hypercapnea upon initial VBG today. Likely due to COPD exacerbation, medications causing sedation (diazepam, oxycodone, trazodone), untreated suspected JENA, etc. This is the cause of his obtundation/met encephalopathy. Placed on BIPAP initially, duoneb x 2 given, repeat cxr also obtained. IV steroids also ordered. The initial VBG was actually about 1-hour after he had been on BIPAP (an earlier blood gas had clotted). Since the CO2 was severely elevated even 1 hour later an order was given to respiratory to titrate the BIPAP further. Concurrently I spoke with Dr Méndez from critical care who accepted the patient to the ICU as the patient may need intubation. Patient transferred on BIPAP to ICU. Significant other updated at bedside prior to transfer to ICU. (2) Metabolic encephalopathy: 2nd to severe hypercapnea. Cannot rule out toxic effects from meds (trazodone, valium, etc). Cannot rule out hypertensive encephalopathy. Ammonia level modestly elevated - could have element of hepatic encephalopathy as well. Na level mildly low - could be contributing. Cont BIPAP. Hold sedating meds. Treat BP. Consider lactulose enema. (3) COPD exacerbation: add solumedrol 60mg IV q6h. add scheduled nebs q4h. supportive care. BIPAP. chest x-ray from this am - results noted. titrate O2 for sats 90-92%. remains on IV rocephin and doxy. consider narrowing abx to doxy monotherapy - no discrete pneumonia on chest x- ray. (4) Hypertensive urgency: EDWARD added this am but unable to take due to mental status. Other PO meds scheduled from this am also held due to mental status. Patient may need anti-hypertensive drip in ICU - defer to critical care team. (5) Hyponatremia: Likely due to diuretics. Cannot rule out that low Na contributing to mental status but less likely. Daily BMP. (6) Nicotine dependence: nicotine patch 14mg/day (7) Acute exacerbation of congestive heart failure: HOLD lasix due to severe contraction alkalosis. Consider diamox. Defer to critical care. (8) Sick sinus syndrome: Dr Duncan willing to perform permanent pacemaker placement. over the weekend the patient was adamant that the pacer needed to [facility]. Social work to check into this premise. Continue telemetry. Avoid AV elton agents. Recent TSH wnl. (9) Morbid obesity with BMI of 40.0-44.9, adult: BMI 43 (10) DVT prophylaxis: would add lovenox 40mg daily defer med selection to ICU team significant other updated care d/w Dr Méndez again patient transferred to ICU 75min of critical care time - hypercapneic resp failure posed a threat to this gentleman's life necessitating use of noninvasive ventilation, etc. Admission and Anticipated Discharge Date Admission Date: September 13, 2019 Subjective during AM rounds patient was largely unresponsive. only for 1-2 seconds did he wake up, stating something about a pacemaker. he otherwise did not speak or follow commands. I updated the patient's significant other at bedside today prior to ICU transfer. Explained the hypercarbia, need for BIPAP, potential need for intubation if CO2 did not improve, etc. She reported the patient did not have living will or HCPOA but she stated he would want Full code measures. tele overnight wnl. episodes of bradycardia at times. Review of Systems Review of Systems: Unobtainable due to cognitive status and Unobtainable due to reduced consciousness Physical Exam Constitutional: + ill appearing, + morbidly obese and + altered mental status; no acute distress Eyes: PERRL ENMT: Mouth: + dry oral mucous membranes Respiratory: + prolonged expiratory phase; no respiratory distress Auscultation: + wheezes; no crackles Cardiovascular: Rate/Rhythm: regular rate and regular rhythm Heart Sounds: normal S1 and normal S2; no murmur Vessels: posterior tibial pulses present and dorsalis pedis pulses present; no JVD Extremities: no edema Gastrointestinal (Abdomen): Inspection/Auscultation: abdomen not distended Percussion/Palpation: abdomen soft; abdomen nontender and no hepatosplenomegaly Psychiatric: Orientation: + not alert and + not oriented x 3 Results & Data ([facility]) Vital Signs (Past 12 Hours) Vital Signs Temp Pulse Resp BP Pulse Ox 09/16/19 08:43 77 18 96 09/16/19 08:09 36.7 C 86 22 181/70 H 93 09/16/19 04:17 36.9 C 92 H 28 H 188/66 H 95 09/16/19 01:14 187/75 H 09/16/19 00:09 91 H 28 H 186/90 H 97 Laboratory Results Laboratory Results - last 24 hr 09/16/19 09/16/19 05:54 05:54 WBC 7.59 RBC 4.59 L Hgb 15.0 Hct 47.6 MCV 103.7 H MCH 32.7 MCHC 31.5 L RDW Std Deviation 50.3 H RDW Coeff of Carla 13.4 Plt Count 187 MPV 9.7 Immature Gran % (Auto) 0.4 Neut % (Auto) 70.9 Lymph % (Auto) 18.1 [place] % (Auto) 10.1 Eos % (Auto) 0.4 Baso % (Auto) 0.1 Immature Gran # (Auto) 0.03 H Neut # (Auto) 5.38 Lymph # (Auto) 1.37 [place] # (Auto) 0.77 H Eos # (Auto) 0.03 Baso # (Auto) 0.01 Sodium 132 L Potassium 4.4 Chloride 87 L Carbon Dioxide 42 H* Anion Gap 2.0 L BUN 11 Creatinine 0.72 Est Cr Clr Drug Dosing 119.7 Est GFR ( Amer) 108.8 Est GFR (Non-Af Amer) 93.9 BUN/Creatinine Ratio 15.5 Glucose 129 H Calcium 9.0 Total Bilirubin 0.3 AST 15 ALT 21 Alkaline Phosphatase 108 Total Protein 7.6 Albumin 3.0 L Globulin 4.6 H Albumin/Globulin Ratio 0.7 L PG Care Time/CCT Total # of Minutes Spent Total Time Spent with Patient: Total time spent is greater than 50% in coordination of care (as documented) at patient's floor/unit and/or counseling patient: Critical Care Time: Yes Total Critical Care Time: 75 Coding Level of Care Code None Diagnoses Acute hypercapnic respiratory failure J96.02 Metabolic encephalopathy G93.41 COPD exacerbation J44.1 Hypertensive urgency I16.0 Hyponatremia E87.1 Nicotine dependence F17.210 Nicotine product type: cigarettes Substance use status: uncomplicated Acute exacerbation of congestive heart failure I50.33 Heart failure type: diastolic Sick sinus syndrome I49.5 Morbid obesity with BMI of 40.0-44.9, adult E66.01; Z68.41 DVT prophylaxis Z29.9 Additional Codes Critical Care Time - Critical Care Time: Yes ([id number]) (1) Nicotine dependence Nicotine product type: cigarettes Substance use status: uncomplicated Qualified Code(s): F17.210 - Nicotine dependence, cigarettes, uncomplicated (2) Acute exacerbation of congestive heart failure Heart failure type: diastolic Qualified Code(s): I50.33 - Acute on chronic diastolic (congestive) heart failure
[2019-09-16] MEDS: CEROVITE ADV FORMULA TAB PO SCH (10:22)
[2019-09-16] MEDS: ASPIRIN 325 MG ECTAB PO SCH (10:22)
[2019-09-16] MEDS: AMLODIPINE BESYLATE 5 MG TAB PO SCH (10:22)
[2019-09-16] MEDS: OMEGA-3 (PURIFIED FISH OIL) 1 GM CAP PO SCH ×2 (10:22→20:04)
[2019-09-16] MEDS: DOXYCYCLINE HYCLATE 100 MG CAP PO SCH ×2 (10:22→20:06)
[2019-09-16] MEDS: CHOLECALCIFEROL 1,000 UNITS 25 MCG TAB PO SCH (10:23)
--- NOTE | 2019-09-16 10:58 | XRay Report ---
XR chest 1V portable CLINICAL HISTORY: 69 years-old Male presenting with respiratory failure. TECHNIQUE: Portable upright AP view of the chest was obtained. COMPARISON: 09/24/2019. FINDINGS: Implanted medical administrative again projects over the left upper lung limiting evaluation in this region. Atherosclerosis of the aortic arch. Cardiac silhouette enlarged. Mild pulmonary vascular prominence. No significant interstitial prominence. No focal opacity. No large effusion or pneumothorax. Degenera tive changes of the thoracic spine. Anterior cervical fusion hardware. Upper abdomen normal. IMPRESSION: 1. Cardiomegaly with mild if any volume overload. No advanced congestive change. ACT 112: Negative or not required by law. Electronically signed by: Brent Greenberg M.D. 09/16/2019 10:57 AM
[2019-09-16] MEDS: MAGNESIUM OXIDE 400 MG TAB PO SCH (11:29)
[2019-09-16 11:34] LABS: Base Excess VBG 8.3 mEq/L; Oxygen Saturation VBG 63.2 %; pH VBG 7.19 (7.36-7.41)
[2019-09-16] MEDS: ALBUT/IPRATROP 3MG/0.5MG NEB 3 ML VIAL NEB SCH ×4 (11:53→23:28)
--- NOTE | 2019-09-16 12:06 | Electrocardiogram Report ---
Test Reason : Blood Pressure : / mmHG Vent. Rate : 082 BPM Atrial Rate : 082 BPM P-R Int : 138 ms QRS Dur : 136 ms QT Int : 400 ms P-R-T Axes : 071 -67 044 degrees QTc Int : 467 ms Normal sinus rhythm Right bundle branch block Left anterior fascicular block Bifascicular block Abnormal ECG No previous ECGs available Confirmed by Cale Duncan ([id number]) on 09/16/2019 12:06:12 PM Referred By: REFERRED SELF Confirmed By:Cale Duncan
[2019-09-16] MEDS: methylPREDNISolone 60 MG in SYRINGE 0 ML IV SCH ×2 (12:09→18:16)
[2019-09-16 13:21] LABS: iSTAT Allen Test Pass; iSTAT Art Bld Gas pCO2 Correct 90 mmHg (35-46); iSTAT Art Bld Gas pH Corrected 7.351 (7.35-7.45); iSTAT Arterial Blood Gas HCO3 50 meg/L (19-24); iSTAT Arterial Blood Gas pCO2 90 mmHg (35-46); iSTAT Arterial Blood Gas pH 7.35 (7.35-7.45); iSTAT Arterial Blood Gas pO2 86 mmHg (80-95); iSTAT Arterial Blood Gas pO2 C 86; iSTAT Hematocrit 46 % (42-52); iSTAT Hemoglobin 15.6 g/dl (14.0-18.0); iSTAT Potassium 4.3 mmol/L (3.3-5.0); iSTAT Site L Radial; iSTAT Sodium 128 mmol/L (135-144)
--- NOTE | 2019-09-16 13:28 | Cardiology Progress Note ---
Date of Service September 16, 2019 Assessment & Plan (1) Syncope: He has had several witnessed syncopal events, one in July was evaluated at [facility] where a 12-second pauses reported, he has had recent syncopal events leading to his admission here. I think he is also being evaluated for seizure activity although bradycardia seems more likely and I would probably treat that with a pacemaker and only if there are recurrent episodes consider further evaluation. (2) Bradycardia: He has multiple reported pauses on event monitoring and perhaps on telemetry monitoring at [facility] emergency room in July where a 12-second pauses reported. I have not seen specific diagnoses mentioned for the pauses, I do not know if they are sinus pauses or if they are due to heart block, it does not matter too much but it might be helpful to know. I have not seen these records showing the pauses but they could probably be obtained and it probably would be a good idea before pacemaker implantation. I think he clearly needs a pacemaker based on the data that I have (which does not include rhythm strips to review as noted), I have recommended this to him. He continues to talk about a lot of extraneous information such as [facility] has one on order, [facility] to be [facility], he would like it done at [place], etc. If he wants to have it done here I can do it Monday and I have tentatively scheduled it for that time, if not I will leave it up to him and the primary service to make other arrangements. I would implant a dual-chamber pacemaker. I will make him n.p.o. in case he can do it tomorrow but will make no other arrangements as yet. (3) RBBB (right bundle branch block): He has a right bundle branch block pattern on his electrocardiogram, this indicates some AV conduction disease although it does not necessarily mean he had heart block as a cause of his pauses. No specific treatment or further evaluation for this. (4) Hypertension: His blood pressure is quite elevated, I would not use beta-blockers or negative chronotropic's to treat it. (5) COPD exacerbation: He has longstanding COPD and his lungs do not sound good, as long as he can lay supine without being hypoxic we should be able to place the pacemaker although a few days of respiratory therapy and antibiotics may be in order before pacemaker implantation. It does not appear to be an emergency, has been going on for at least several months although he has had a number of syncopal events likely related to it. I cannot exclude the possibility that his pauses are due to hypoxia, given the magnitude of them it seems little unlikely and perhaps review of the tracings could help with that. Normally with pauses of that duration and clinical syncope even if we think hypoxia might be a contributing factor I would favor a pacemaker. Admission and Anticipated Discharge Date Admission Date: September 13, 2019 Subjective Patient is very sleepy today, he is arousable but is not very conversational. He denies shortness of breath. Physical Exam Physical Exam: Constitutional: Sleepy, cooperative and in no distress. HEENT: Unremarkable Neck: No jugular venous distention, carotid pulses are normal and equal bilaterally without bruits. Pulmonary: Rhonchi and prolonged expiration on auscultation bilaterally. Cardiac: Regular rhythm with no murmur, gallop or rub. Abdomen: Soft, nontender with normal bowel sounds. Extremities: Bilateral pretibial edema. Distal pulses intact. Neurologic: No focal findings. Gait is steady. Skin: No rash, ecchymoses or petechiae. Results & Data ([facility]) Vital Signs (Past 12 Hours) Vital Signs Temp Pulse Pulse Resp BP BP Pulse Ox 09/16/19 11:53 78 78 18 96 09/16/19 11:40 36.5 C 72 18 170/64 H 95 09/16/19 10:23 82 82 25 H 96 09/16/19 08:43 77 18 96 09/16/19 08:09 36.7 C 86 22 181/70 H 93 09/16/19 04:17 36.9 C 92 H 28 H 188/66 H 95 Laboratory Results Cardiac Enzymes 09/16/19 Range/Units 05:54 AST 15 (15-37) U/L CBC 09/16/19 Range/Units 05:54 WBC 7.59 (4.8-10.8) K/uL RBC 4.59 L (4.7-6.1) M/uL Hgb 15.0 (14.0-18.0) g/dL Hct 47.6 (42-52) % Plt Count 187 (130-400) K/uL Neut # (Auto) 5.38 (1.4-6.5) K/uL Lymph # (Auto) 1.37 (1.2-3.4) K/uL [place] # (Auto) 0.77 H (0.11-0.59) K/uL Eos # (Auto) 0.03 (0-0.5) K/uL Baso # (Auto) 0.01 (0-0.2) K/uL Comprehensive Metabolic Panel 09/16/19 Range/Units 05:54 Sodium 132 L (136-145) mmol/L Potassium 4.4 (3.5-5.1) mmol/L Chloride 87 L (98-107) mmol/L Carbon Dioxide 42 H* (21-32) mmol/L BUN 11 (7-18) mg/dl Creatinine 0.72 (0.6-1.4) mg/dl Glucose 129 H (70-99) mg/dl Calcium 9.0 (8.5-10.1) mg/dl AST 15 (15-37) U/L ALT 21 (12-78) U/L Alkaline Phosphatase 108 (45-117) U/L Total Protein 7.6 (6.4-8.2) gm/dl Albumin 3.0 L (3.4-5.0) gm/dl Intake and Output 09/15/19 09/16/19 09/16/19 22:59 06:59 14:59 Intake Total 125 / 1120.000 110 / 1120.000 Output Total 700 / 1250 1050 / 1050 Balance 125 / -130.000 -590 / -130.000 -1050 / -1050 Intake: IV 110 / 220.000 Vibramycin 100 mg In D5 100 ml 110 / 220.000 @ 50 mls/hr IV BID [facility] Rx#: [id number] Oral 125 / 900 Output: Urine 700 / 1250 550 / 550 Urine Amount (Catheter) 500 / 500 High/Indwelling 500 / 500 Other: Weight 125.6 kg Diagnostic Findings Telemetry: Sinus rhythm in the 60s to 80s. No significant bradycardia or pauses. PG Care Time/CCT Total # of Minutes Spent Total Time Spent with Patient: Total time spent is greater than 50% in coordination of care (as documented) at patient's floor/unit and/or counseling patient: Coding Level of Care Code 92816 Subseq Hosp Care Lvl 2 Diagnoses Syncope R55 Syncope type: unspecified Bradycardia R00.1 RBBB (right bundle branch block) I45.10 Hypertension I10 COPD exacerbation J44.1 (1) Syncope Syncope type: unspecified Qualified Code(s): R55 - Syncope and collapse
[2019-09-16] MEDS ORDERED: HydrALAZINE HCL 20 MG/ML VIAL IV STA (13:44)
--- NOTE | 2019-09-16 13:57 | Critical Care Consultation ---
Date of Consultation September 16, 2019 Assessment & Plan (1) Acute hypercapnic respiratory failure: This is a complex 69-year-old male with a history of morbid obesity, obesity hypoventilation syndrome, hypercapnic respiratory failure, diastolic heart failure and sick sinus syndrome. Continue BiPAP and it does appear that he is improving on noninvasive ventilation. Hold Lasix today given his worsening metabolic alkalosis. Will obtain a CT of his head due to his altered mental status. LFTs and ammonia has been checked with no significant derangements. We will check a lipase given his abdominal tenderness. Continue IV Solu-Medrol. Maintain n.p.o. status. Duo nebs PRN. EKG and troponins are pending. He does have some mild hyponatremia as well and we are checking serum osmolality and urine sodium. Likely related to his hypervolemic status. No obvious infectious etiology. He is very hypertensive. We are switching his amlodipine to nifedipine as we have more room to increase the nifedipine. Giving him a one-time dose of hydralazine as well. If he continues to be very hypertensive, we will have to consider starting nicardipine. Avoid AV elton blocking agents given his significant sick sinus syndrome. Cardiology and EP is on board and recommended pacemaker. CRITICAL CARE TIME - I have personally spent 30 minutes of critical care time in the direct management of this patient. This is a life/limb threatening event. This includes time spent evaluating patient, direct bedside care, chart review, placing orders, interpretation of diagnostic studies, discussion with consultants, patient, and family members, as well as other required patient management activities. This time is exclusive of all separately billable procedures, and teaching time and separate from and in addition to any other critical care service time. (2) Hypertensive urgency: (3) Hypoxia: (4) Sick sinus syndrome: (5) Hyponatremia: History of Present Illness Reason for Consultation: Hypercapnic respiratory failure with altered mental status Requesting Physician: Dr. Murcia Attending Physician: Thomas Murcia History of Present Illness 69-year-old male with a past medical history of diastolic heart failure, obesity hypoventilation syndrome, hypertension, sick sinus syndrome, tobacco abuse, legally blind and in chart history of COPD (I am unable to find any pulmonary function tests) who originally presented to the hospital due to shortness of breath and syncope on 09/13/2019. He presents to the ICU today with increasing hypoxemic and hypercapnic respiratory failure. I was called by the hospitalist due to concerns of respiratory failure. At that time he had a VBG of 7.19/113. We performed an ABG after being on BiPAP for roughly 1 hour and is gas was as follows 7.3 /86 on BiPAP. Chest x-ray on 09/16/2019 demonstrated cardiomegaly with mild volume overload. Patient is able to give me a minimal history as he is a bit drowsy. He denies any chest pain. He does endorse some abdominal pain. He does have a bit of a cough. No fevers or chills. He is very hypertensive with a blood pressure of 219/73. Patient has been diuresed and is currently -3.575 L. CTA performed on 09/13/2019 with no evidence of pulmonary embolism. There is no airspace disease or pleural effusion. Mild diffuse peribronchial thickening was noted. Allergies Allergy/AdvReac Type Severity Reaction Status Date / Time gabapentin Allergy Unknown Unverified 09/13/19 18:01 muscle relaxers Allergy Unknown Uncoded 09/13/19 18:01 Home Medications Home Medications Medication Instructions Recorded Confirmed Type Nugenix 1 cap PO DAILY 09/13/19 History amlodipine 10 mg PO DAILY 09/13/19 09/13/19 History aspirin [Danielle Aspirin] 325 mg PO QAM 09/13/19 09/13/19 History amljoqv-npvdvpakaftns-zgsmkqqd 1 tab PO Q6H PRN 09/13/19 09/13/19 History [Excedrin Extra Strength] pmqznvuecp-wjyoikhhnvbwl-amfc 1 tab PO Q6H PRN 09/13/19 09/13/19 History cholecalciferol (vitamin D3) 1,000 unit PO DAILY 09/13/19 09/13/19 History [Vitamin D3] diazepam 5 mg PO TID PRN 09/13/19 09/13/19 History furosemide 40 mg PO BID 09/13/19 09/13/19 History latanoprost 1 drp OPHTHALMIC (EYE) PM 09/13/19 09/13/19 History magnesium 400 mg PO DAILY 09/13/19 09/13/19 History mv,Ca,nij-afmb-XH-lycopene 1 tab PO DAILY 09/13/19 09/13/19 History [Centrum Men] omega 5-dpi-ora-fish oil 2 cap PO BID 09/13/19 09/13/19 History sildenafil 100 mg PO DAILY PRN 09/13/19 09/13/19 History timolol 1 drp OPHTHALMIC (EYE) QAM 09/13/19 09/13/19 History trazodone 100 mg PO HS 09/13/19 09/13/19 History Patient History Medical History COPD (chronic obstructive pulmonary disease) Social History Preferred Language: Kyrgyz Communication Ability: Effective Supply Chain Specialist Required: No marital status: Current Living Situation: Alone Feels Safe at Home: Yes Safety Concerns: Feels Safe At This Time Smoking Status: Current every day smoker Tobacco Type: cigarettes ; Cigarettes Per Day: 20 ; Hx Alcohol Use: No Hx Substance Use: Yes substance use type: marijuana Review of Systems Review of Systems: Unobtainable due to cognitive status Physical Exam Constitutional: Patient is laying in bed with a BiPAP mask in place. He is drowsy. Eyes: PERRL, conjunctivae normal, anicteric sclerae ENMT: external ear and nose normal, oropharynx normal Neck: trachea midline, no thyromegaly Respiratory: Bilateral mild wheezing noted. Cardiovascular: 1+ pitting edema lower extremities. Regular rate and rhythm. No murmurs. Gastrointestinal (Abdomen): Mild tenderness to palpation. Active bowel sounds. Musculoskeletal: no cyanosis or clubbing, extremities motor strength 5/5 Skin: no rashes, warm and dry Neurologic: PERRL, EOMI, accommodation nl, no face palsy, no dysarthria Psychiatric: A+Ox3, euthymic affect Results & Data ([facility]) Vital Signs (Past 12 Hours) Vital Signs Temp Pulse Pulse Resp BP BP Pulse Ox 09/16/19 11:53 78 78 18 96 09/16/19 11:40 97.7 F 72 18 170/64 H 95 09/16/19 10:23 82 82 25 H 96 09/16/19 08:43 77 18 96 09/16/19 08:09 98.1 F 86 22 181/70 H 93 09/16/19 04:17 98.4 F 92 H 28 H 188/66 H 95 I personally reviewed his labs, chest imaging and previous notes. Coding Level of Care Code Critical Care 1st 30-74 mins Diagnoses Acute hypercapnic respiratory failure J96.02 Hypertensive urgency I16.0 Hypoxia R09.02 Sick sinus syndrome I49.5 Hyponatremia E87.1 Time Spent (min) 30
[2019-09-16] MEDS ORDERED: NIFEdipine 10 MG CAP PO SCH (14:00)
[2019-09-16 14:28] LABS: Lipase 55 U/L (73-393); Troponin I < 0.015 ng/ml (0-0.045)
[2019-09-16] MEDS ORDERED: NIFEdipine EXTENDED REL 30 MG TABCR PO ONE (14:45)
[2019-09-16 15:15] LABS: BUN Creatinine Ratio 18.1 (10-20); Calcium 9.1 mg/dl (8.5-10.1); Creatinine Clr Calc Pharmacy 132.5 ml/min; Est GFR (African American) 113.4; Est GFR (Non-African American) 97.9; Potassium 4.5 mmol/L (3.5-5.1)
[2019-09-16] MEDS: cefTRIAXone SODIUM 2,000 MG in DEXTROSE 5% 50 ML IV SCH (15:54)
[2019-09-16] MEDS ORDERED: STAT IV Infusion **Titration per Protocol STA (16:45)
[2019-09-16] MEDS: NIFEdipine EXTENDED REL 30 MG TABCR PO SCH (20:05)
[2019-09-16] MEDS: LATANOPROST 0.005% OP SOLN 2.5 ML BTL OP SCH (20:06)
[2019-09-17] MEDS: ALBUT/IPRATROP 3MG/0.5MG NEB 3 ML VIAL NEB SCH ×6 (03:27→23:25)
[2019-09-17 05:43] LABS: iSTAT Allen Test Pass; iSTAT Art Bld Gas pCO2 Correct 72 mmHg (35-46); iSTAT Art Bld Gas pH Corrected 7.446 (7.35-7.45); iSTAT Arterial Blood Gas HCO3 50 meg/L (19-24); iSTAT Arterial Blood Gas pCO2 75 mmHg (35-46); iSTAT Arterial Blood Gas pH 7.43 (7.35-7.45); iSTAT Arterial Blood Gas pO2 76 mmHg (80-95); iSTAT Arterial Blood Gas pO2 C 72; iSTAT FiO2 40 %; iSTAT Hematocrit 43 % (42-52); iSTAT Hemoglobin 14.6 g/dl (14.0-18.0); iSTAT Site R Radial; iSTAT Sodium 134 mmol/L (135-144)
[2019-09-17 05:44] LABS: Hematocrit (blood only) 45.1 % (42-52); Hemoglobin 14.5 g/dL (14.0-18.0); Mean Corpuscular Hemoglobin 32.4 pg (25-34); Mean Corpuscular Hgb Conc 32.2 g/dL (32-36); Mean Corpuscular Volume 100.7 fL (80-100); Mean Platelet Volume 9.7 fL (7.4-10.4); Platelet Count 187 K/uL (130-400); RDW Coefficient of Variation 13.2 % (11.5-14.5); RDW Standard Deviation 48.5 fL (36.4-46.3); Red Blood Count 4.48 M/uL (4.7-6.1); White Blood Count 7.65 K/uL (4.8-10.8)
[2019-09-17 06:34] LABS: BUN Creatinine Ratio 26.1 (10-20); Creatinine Clr Calc Pharmacy 114.9 ml/min; Est GFR (Non-African American) 92.3; Magnesium 2.4 mg/dl (1.8-2.4); Phosphorus 2.1 mg/dl (2.5-4.9); Potassium 3.9 mmol/L (3.5-5.1)
--- NOTE | 2019-09-17 07:04 | XRay Report ---
XR chest 1V portable CLINICAL HISTORY: Respiratory failure. Follow-up study. COMPARISON STUDY: 09/16/2019 FINDINGS: The heart is at the upper limits of normal in size. There is no failure. There is no focal pulmonary consolidation. There are no pleural effusions. There are postsurgical changes of the cervic al spine. Electronic device projects over the left upper chest.[ IMPRESSION: No active disease in the chest. ACT 112: Negative or not required by law. Electronically signed by: Chaparro Dolan M.D. 09/17/2019 7:03 AM
--- NOTE | 2019-09-17 08:19 | Critical Care Progress Note ---
Date of Service September 17, 2019 Assessment & Plan (1) Acute hypercapnic respiratory failure: Patient improving from hypercapnic standpoint. Still remains very hypertensive. We are going up on the lisinopril to 20 mg daily. Starting on hydralazine 25 mg 3 times daily. Continuing nifedipine 30 mg twice daily. Holding on any beta-blockers given his sick sinus syndrome. Weaning off the nicardipine as able. Goal systolic blood pressure of 150-170. Continue BiPAP PRN. Certainly needs BiPAP at all hours during sleep. He does have metabolic contraction alkalosis as well and I am starting him on acetazolamide 250 mg twice daily. Continuing antibiotics for possible tracheobronchitis. There is no obvious infiltrate on chest x-ray. Continue monitoring his input and output. Cardiology following for potential pacemaker placement later once his hemodynamic parameters and respiratory status improve. N.p.o. for now. Heparin 3 times daily for DVT prophylaxis. Possible transfer later today if able to be weaned off nicardipine. CRITICAL CARE TIME - I have personally spent 35 minutes of critical care time in the direct management of this patient. This is a life/limb threatening event. This includes time spent evaluating patient, direct bedside care, chart review, placing ord ers, interpretation of diagnostic studies, discussion with consultants, patient, and family members, as well as other required patient management activities. This time is exclusive of all separately billable procedures, and teaching time and separate from and in addition to any other critical care service time. (2) Hyponatremia: (3) Morbid obesity with BMI of 40.0-44.9, adult: (4) Hypertensive urgency: (5) Alkalosis, metabolic: (6) RBBB (right bundle branch block): (7) Sick sinus syndrome: Subjective Patient laying in bed. Complaining of some mild chest pain. Otherwise much more talkative and awake than he was yesterday. No nausea. Alluding to some back pain. Still on a low-dose of nicardipine. Blood pressure 202/73. Physical Exam Constitutional: Patient is laying in bed with a BiPAP mask in place. He is drowsy. Eyes: PERRL, conjunctivae normal, anicteric sclerae ENMT: external ear and nose normal, oropharynx normal Neck: trachea midline, no thyromegaly Respiratory: Bilateral mild wheezing noted. Cardiovascular: 1+ pitting edema lower extremities. Regular rate and rhythm. No murmurs. Gastrointestinal (Abdomen): Mild tenderness to palpation. Active bowel sounds. Musculoskeletal: no cyanosis or clubbing, extremities motor strength 5/5 Skin: no rashes, warm and dry Neurologic: PERRL, EOMI, accommodation nl, no face palsy, no dysarthria Psychiatric: A+Ox3, euthymic affect Results & Data ([facility]) Vital Signs (Past 12 Hours) Vital Signs Temp Pulse Pulse Resp BP Pulse Ox 09/17/19 07:23 79 19 93 09/17/19 07:21 79 19 92 09/17/19 04:50 80 20 175/75 H 97 09/17/19 04:30 86 19 96 09/17/19 04:20 83 21 163/65 H 95 09/17/19 04:00 97.5 F L 89 23 96 09/17/19 03:50 59 L 26 H 155/82 H 94 09/17/19 03:34 63 22 93 09/17/19 03:33 63 22 93 09/17/19 03:30 75 29 H 93 09/17/19 03:21 63 31 H 162/70 H 92 09/17/19 03:00 69 26 H 92 09/17/19 02:50 88 25 H 174/78 H 92 09/17/19 02:30 60 23 92 09/17/19 02:20 64 26 H 166/72 H 92 09/17/19 02:00 77 23 92 09/17/19 01:52 74 24 92 09/17/19 01:51 80 23 178/81 H 92 09/17/19 01:30 77 28 H 92 09/17/19 01:20 63 24 160/83 H 91 09/17/19 01:00 65 22 92 09/17/19 00:50 81 28 H 157/69 H 92 09/17/19 00:30 64 27 H 94 09/17/19 00:20 83 26 H 189/75 H 94 09/17/19 00:00 97.5 F L 80 23 94 09/16/19 23:50 83 23 161/66 H 94 09/16/19 23:30 85 23 95 09/16/19 23:28 83 22 93 09/16/19 23:27 83 22 93 09/16/19 23:20 75 25 H 160/72 H 93 09/16/19 23:00 83 22 92 09/16/19 22:50 91 H 23 138/69 94 09/16/19 22:30 84 27 H 91 09/16/19 22:20 92 H 35 H 170/68 H 92 09/16/19 22:00 86 23 92 09/16/19 21:50 60 25 H 187/72 H 92 09/16/19 21:30 76 25 H 92 09/16/19 21:20 71 29 H 153/64 H 92 09/16/19 21:00 68 26 H 91 09/16/19 20:50 102 H 22 173/77 H 93 09/16/19 20:30 96 H 25 H 92 09/16/19 20:20 87 23 139/70 92 Coding Level of Care Code Critical Care 1st 30-74 mins Diagnoses Acute hypercapnic respiratory failure J96.02 Hyponatremia E87.1 Morbid obesity with BMI of 40.0-44.9, adult E66.01; Z68.41 Hypertensive urgency I16.0 Alkalosis, metabolic E87.3 RBBB (right bundle branch block) I45.10 Sick sinus syndrome I49.5 Time Spent (min) 35
[2019-09-17] MEDS ORDERED: NIFEdipine 10 MG CAP PO SCH (09:00)
[2019-09-17] MEDS ORDERED: acetaZOLAMIDE 250 MG in DEXTROSE 5% 100 ML IV SCH (09:00)
[2019-09-17 09:18] LABS: Folate (Folic Acid) 16.51 ng/ml (>5.38)
--- NOTE | 2019-09-17 09:55 | Cardiology Progress Note ---
Date of Service September 17, 2019 Assessment & Plan (1) Syncope: He has had several witnessed syncopal events, one in July was evaluated at [facility] where a 12-second pauses reported, he has had recent syncopal events leading to his admission here. I think he is also being evaluated for se izure activity although bradycardia seems more likely and I would probably treat that with a pacemaker and only if there are recurrent episodes consider further evaluation. (2) Bradycardia: He has multiple reported pauses on event monitoring and perhaps on telemetry monitoring at [facility] emergency room in July where a 12-second pauses reported. I have not seen specific diagnoses mentioned for the pauses, I do not know if they are sinus pauses or if they are due to heart block, it does not matter too much but it might be helpful to know. I have not seen these records showing the pauses but they could probably be obtained and it probably would be a good idea before pacemaker implantation. I think he clearly needs a pacemaker based on the data that I have (which does not include rhythm strips to review as noted), I have recommended this to him. I have had him on the operating schedule several times now, including this afternoon, however he continues to talk about having his pacemaker at [place] and not here and told me he is try to figure how to get down there. He also thinks [facility] is some issue [facility]. He has to agree to a pacemaker implantation here before I am willing to implant it. So far he has not agreed. I am going to take him off the schedule today for this as well as the fact that he is on BiPAP, I am not going to reschedule but if he changes his mind we can reschedule it. I will therefore sign off for the moment, but if he does agree to pacemaker I can come back and see him. (3) RBBB (right bundle branch block): He has a right bundle branch block pattern on his electrocardiogram, this indicates some AV conduction disease although it does not necessarily mean he had heart block as a cause of his pauses. No specific treatment or further evaluation for this. (4) Hypertension: His blood pressure is markedly elevated, I would not use beta-blockers or negative chronotropic's to treat it. (5) COPD exacerbation: He has longstanding COPD and his lungs do not sound good, as long as he can lay supine without being hypoxic we should be able to place the pacemaker although a few more days of respiratory therapy and antibiotics may be in order before pacemaker implantation. It does not appear to be an emergency, his bradycardia and pauses have been going on for at least several months although he has had a number of syncopal events likely related to it. I cannot exclude the possibility that his pauses are due in part to hypoxia, given the magnitude of them it seems unlikely that that is the sole cause however perhaps review of the tracings could help with that differentiation. Normally with pauses of that duration and clinical syncope even if we think hypoxia might be a contributing factor I would favor a pacemaker. Other box attacher have felt the same. Admission and Anticipated Discharge Date Admission Date: September 13, 2019 Subjective He remains on BiPAP, he is sleepy but responsive, he denies shortness of breath. He tells me he is feeling better. He is still trying to figure out how to get to [place] to get his pacemaker, according to his statements. Physical Exam Physical Exam: Constitutional: Sleepy but arousable and conversational, cooperative and in no distress. HEENT: Unremarkable Neck: No jugular venous distention, carotid pulses are normal and equal bilaterally without bruits. Pulmonary: Rhonchi and prolonged expiration on auscultation bilaterally. He is using BiPAP currently. Cardiac: Regular rhythm with no murmur, gallop or rub. Abdomen: Soft, nontender with normal bowel sounds. Extremities: Bilateral pretibial edema. Distal pulses intact. Neurologic: No focal findings. Gait is steady. Skin: No rash, ecchymoses or petechiae. Results & Data ([facility]) Vital Signs (Past 12 Hours) Vital Signs Temp Pulse Pulse Resp BP Pulse Ox 09/17/19 07:23 79 19 93 09/17/19 07:21 79 19 92 09/17/19 04:50 80 20 175/75 H 97 09/17/19 04:30 86 19 96 09/17/19 04:20 83 21 163/65 H 95 09/17/19 04:00 36.4 C L 89 23 96 09/17/19 03:50 59 L 26 H 155/82 H 94 09/17/19 03:34 63 22 93 09/17/19 03:33 63 22 93 09/17/19 03:30 75 29 H 93 09/17/19 03:21 63 31 H 162/70 H 92 09/17/19 03:00 69 26 H 92 09/17/19 02:50 88 25 H 174/78 H 92 09/17/19 02:30 60 23 92 09/17/19 02:20 64 26 H 166/72 H 92 09/17/19 02:00 77 23 92 09/17/19 01:52 74 24 92 09/17/19 01:51 80 23 178/81 H 92 09/17/19 01:30 77 28 H 92 09/17/19 01:20 63 24 160/83 H 91 09/17/19 01:00 65 22 92 09/17/19 00:50 81 28 H 157/69 H 92 09/17/19 00:30 64 27 H 94 09/17/19 00:20 83 26 H 189/75 H 94 09/17/19 00:00 36.4 C L 80 23 94 09/16/19 23:50 83 23 161/66 H 94 09/16/19 23:30 85 23 95 09/16/19 23:28 83 22 93 09/16/19 23:27 83 22 93 09/16/19 23:20 75 25 H 160/72 H 93 09/16/19 23:00 83 22 92 09/16/19 22:50 91 H 23 138/69 94 09/16/19 22:30 84 27 H 91 09/16/19 22:20 92 H 35 H 170/68 H 92 09/16/19 22:00 86 23 92 09/16/19 21:50 60 25 H 187/72 H 92 Laboratory Results Cardiac Enzymes 09/16/19 Range/Units 13:52 Troponin I < 0.015 (0-0.045) ng/ml CBC 09/17/19 Range/Units 05:21 WBC 7.65 (4.8-10.8) K/uL RBC 4.48 L (4.7-6.1) M/uL Hgb 14.5 (14.0-18.0) g/dL Hct 45.1 (42-52) % Plt Count 187 (130-400) K/uL Comprehensive Metabolic Panel 09/16/19 09/17/19 Range/Units 14:29 05:21 Sodium 132 L 134 L (136-145) mmol/L Potassium 4.5 3.9 (3.5-5.1) mmol/L Chloride 87 L 88 L (98-107) mmol/L Carbon Dioxide 45 H* 43 H* (21-32) mmol/L BUN 12 20 H D (7-18) mg/dl Creatinine 0.65 0.75 (0.6-1.4) mg/dl Glucose 115 H 127 H (70-99) mg/dl Calcium 9.1 9.0 (8.5-10.1) mg/dl Intake and Output 09/16/19 09/17/19 09/17/19 22:59 06:59 14:59 Intake Total 335.000 / 662.500 327.50 / 662.500 Output Total 455 / 1585 80 / 1585 Balance -120.000 / -922.500 247.50 / -922.500 Intake: IV 320.000 / 647.500 327.50 / 647.500 Cardene 25 mg In Nss 240 ml @ 2 250.000 / 577.500 327.50 / 577.500 .5 MG/HR 25 mls/hr IV .Q10H AJITH Rx#:[id number] Rocephin 2,000 mg In D5w 50 ml 70 / 70 @ 100 mls/hr IV Q24H AJITH Rx#: [id number] Oral 15 / 15 Output: Urine Amount (Catheter) 455 / 1035 80 / 1035 High/Indwelling 455 / 1035 80 / 1035 Diagnostic Findings His electrocardiogram this morning shows sinus rhythm at 98 bpm with a right bundle branch block pattern, no acute changes. Telemetry: Sinus rhythm, no significant bradycardia PG Care Time/CCT Total # of Minutes Spent Total Time Spent with Patient: Total time spent is greater than 50% in coordination of care (as documented) at patient's floor/unit and/or counseling patient: Coding Level of Care Code 74394 Subseq Hosp Care Lvl 2 Diagnoses Syncope R55 Syncope type: unspecified Bradycardia R00.1 RBBB (right bundle branch block) I45.10 Hypertension I10 COPD exacerbation J44.1 (1) Syncope Syncope type: unspecified Qualified Code(s): R55 - Syncope and collapse
[2019-09-17] MEDS: acetaZOLAMIDE 250 MG in SYRINGE 0 ML IV SCH ×2 (09:58→20:22)
[2019-09-17] MEDS: DOXYCYCLINE HYCLATE 100 MG CAP PO SCH ×2 (09:59→20:17)
[2019-09-17] MEDS: lisinopriL 20 MG TAB PO SCH (09:59)
[2019-09-17] MEDS: CHOLECALCIFEROL 1,000 UNITS 25 MCG TAB PO SCH (09:59)
[2019-09-17] MEDS: CEROVITE ADV FORMULA TAB PO SCH (09:59)
[2019-09-17] MEDS: OMEGA-3 (PURIFIED FISH OIL) 1 GM CAP PO SCH ×2 (10:00→20:18)
[2019-09-17] MEDS: NICOTINE 14 MG/24 HR PATCH TD SCH (10:00)
[2019-09-17] MEDS: NIFEdipine EXTENDED REL 30 MG TABCR PO SCH ×2 (10:00→20:15)
[2019-09-17] MEDS: ASPIRIN 325 MG ECTAB PO SCH (10:01)
[2019-09-17] MEDS: CLOTRIMAZOLE 1% CR 15 GM TUBE EXT SCH ×2 (10:01→20:17)
[2019-09-17] MEDS: HEPARIN SOD 5,000 UNIT/0.5 ML VIAL SQ SCH ×2 (10:02→15:55)
[2019-09-17] MEDS: TIMOLOL MALEATE 0.25% OP SOLN 5 ML BTL OP SCH (10:02)
[2019-09-17 11:47] LABS: iSTAT Carbon Dioxide > 50 mmol/L (24-31)
[2019-09-17 11:47] LABS: iSTAT Carbon Dioxide > 50 mmol/L (24-31)
--- NOTE | 2019-09-17 14:35 | Electrocardiogram Report ---
Test Reason : Blood Pressure : / mmHG Vent. Rate : 085 BPM Atrial Rate : 085 BPM P-R Int : 136 ms QRS Dur : 126 ms QT Int : 382 ms P-R-T Axes : 070 -70 037 degrees QTc Int : 454 ms Sinus rhythm with Premature atrial complexes Possible Left atrial enlargement Right bundle branch block Left anterior fascicular block Bifascicular block Abnormal ECG When compared with ECG of 13-SEP-2019 16:46, Premature atrial complexes are now Present Confirmed by Cale Duncan ([id number]) on 09/17/2019 2:35:21 PM Referred By: REFERRED SELF Confirmed By:Cale Duncan
[2019-09-17] MEDS: POT PHOSPHATE MONOBASIC W/ SOD TAB PO SCH ×3 (14:53→20:20)
[2019-09-17] MEDS: MAGNESIUM OXIDE 400 MG TAB PO SCH (14:54)
[2019-09-17] MEDS: methylPREDNISolone 60 MG in SYRINGE 0 ML IV SCH (14:56)
--- NOTE | 2019-09-17 15:24 | Electrocardiogram Report ---
Test Reason : Blood Pressure : / mmHG Vent. Rate : 098 BPM Atrial Rate : 098 BPM P-R Int : 128 ms QRS Dur : 124 ms QT Int : 402 ms P-R-T Axes : 075 -71 047 degrees QTc Int : 513 ms Normal sinus rhythm Left axis deviation Right bundle branch block Abnormal ECG When compared with ECG of 16-SEP-2019 13:46, (unconfirmed) Premature atrial complexes are no longer Present Confirmed by Cale Duncan ([id number]) on 09/17/2019 3:24:15 PM Referred By: REFERRED SELF Confirmed By:Cale Duncan
[2019-09-17] MEDS: cefTRIAXone SODIUM 2,000 MG in DEXTROSE 5% 50 ML IV SCH (15:51)
--- NOTE | 2019-09-17 19:34 | Hospitalist Progress Note ---
Date of Service September 17, 2019 Assessment & Plan (1) Acute hypercapnic respiratory failure: Improved with BIPAP since yesterday am. Did not require intubation/mech ventilation fortunately. Most recent blood gas with compensated resp acidosis. Acute resp failure 2nd to COPD exacerbation in the setting of sedative use, etc. Cont BIPAP at HS/naps. Wean to NC O2 to maintain sats 90-92%. Appreciate pulmonary/critical care assistance. Ok to transfer from ICU to PCU today. (2) Metabolic encephalopathy: 2nd to severe hypercapnea. Resolved. Cannot rule out some toxic effects from prior meds (trazodone, valium, etc). Cannot rule out hypertensive encephalopathy. Ammonia level modestly elevated but doubt having hepatic encephalopathy. Na had been mildly low but doubt it played any role. (3) COPD exacerbation: Ongoing. Cont solumedrol 60mg - weaned by pulmonary to once daily dosing. Cont scheduled nebs q4h. supportive care. BIPAP HS/naps or for dyspnea. chest x-ray from this am - no infiltrates. titrate O2 for sats 90-92%. remains on IV rocephin and doxy. stop rocephin since no discrete pneumonia process on multiple x-rays. Cont pulmonary toilet. (4) Hypertensive urgency: Improved on nicardipine drip overnight; now drip has been d/c. Cont oral agents - hydralazine, EDWARD, nifedipine. (5) Hyponatremia: Likely due to diuretics. Improved on BMP today. BMP in am. (6) Nicotine dependence: nicotine patch 14mg/day (7) Acute exacerbation of congestive heart failure: Lasix held due to contraction alkalosis. Now on diamox BID IV as per critical care team. Plan to treat with such for 3 days or so. BMP in am. (8) Sick sinus syndrome: Dr Duncan willing to perform permanent pacemaker placement this week. [facility] to having [facility] at [facility]. (9) Morbid obesity with BMI of 40.0-44.9, adult: BMI 43 (10) DVT prophylaxis: heparin 5000 TID care d/w Dr Méndez care d/w Dr Duncan transfer to PCU Admission and Anticipated Discharge Date Admission Date: September 13, 2019 Subjective Events of last 24 hours noted. Has required BIPAP since yesterday am. However, he is awake and alert now. During bedside rounds he reported ongoing dyspnea if he takes the BIPAP off. Ongoing cough. Congested. No chest pain. Tele stable. Patient IS willing to have his pacemaker placed at [facility] this week. He had been concerned that he had to have it placed either at [facility] or at the [facility] (due to insurance). Review of Systems Constitutional: no fever Respiratory: + cough, + chest congestion, + dyspnea, + dyspnea on exertion and + wheezing; no hemoptysis Cardiovascular: no chest pain Gastrointestinal: no abdominal pain, no nausea and no vomiting Physical Exam Constitutional: + morbidly obese; no acute distress and no altered mental status coughing ENMT: Mouth: + dry oral mucous membranes Respiratory: + prolonged expiratory phase; no respiratory distress Auscultation: + wheezes (extensive b/l ); no crackles Cardiovascular: Rate/Rhythm: regular rate and regular rhythm Heart Sounds: normal S1 and normal S2; no murmur Vessels: posterior tibial pulses present and dorsalis pedis pulses present; no JVD Extremities: no edema Gastrointestinal (Abdomen): Inspection/Auscultation: abdomen not distended Percussion/Palpation: abdomen soft; abdomen nontender and no hepatosplenomegaly Psychiatric: Orientation: alert and oriented x 3 Results & Data ([facility]) Vital Signs (Past 12 Hours) Vital Signs Temp Pulse Pulse Pulse Resp BP Pulse Ox 09/17/19 19:13 89 18 94 09/17/19 18:22 114 H 25 H 188/84 H 93 09/17/19 17:21 93 H 19 164/72 H 95 09/17/19 16:21 71 21 165/69 H 09/17/19 16:00 36.8 C 09/17/19 15:51 90 27 H 154/84 H 91 09/17/19 15:26 89 18 90 09/17/19 14:51 87 26 H 166/88 H 90 09/17/19 14:21 65 29 H 164/70 H 91 09/17/19 13:50 80 22 156/70 H 90 09/17/19 13:21 87 20 141/67 H 89 L 09/17/19 12:50 99 H 17 157/78 H 90 09/17/19 12:21 69 15 138/75 91 09/17/19 11:51 70 21 163/72 H 91 09/17/19 11:21 70 24 162/75 H 91 09/17/19 11:00 73 21 93 09/17/19 10:54 94 H 21 92 09/17/19 10:53 94 H 19 92 09/17/19 10:51 65 21 160/71 H 90 09/17/19 10:23 95 H 20 141/75 H 91 09/17/19 10:21 93 H 20 263/250 H 89 L 09/17/19 09:50 73 26 H 198/79 H 91 09/17/19 09:21 83 23 173/74 H 89 L 09/17/19 08:50 79 26 H 192/73 H 88 L 09/17/19 08:21 66 21 169/66 H 90 09/17/19 07:50 71 29 H 202/73 H 93 Laboratory Results Laboratory Results - last 24 hr 09/16/19 09/16/19 09/17/19 13:00 13:09 05:21 WBC 7.65 RBC 4.48 L Hgb 14.5 POC Hgb Hct 45.1 POC Hct MCV 100.7 H MCH 32.4 MCHC 32.2 RDW Std Deviation 48.5 H RDW Coeff of Carla 13.2 Plt Count 187 MPV 9.7 Sample Site POC pH POC pCO2 POC pO2 POC HCO3 POC Total CO2 > 50 H* POC Base Excess ABG pH (Temp Correct) ABG pCO2 (Temp Corrct POC ABG pO2 at Pt Temp [place] Test O2 Delivery Device POC O2 Rate POC FiO2 IPAP POC Sodium Sodium POC Potassium Potassium Chloride Carbon Dioxide Anion Gap BUN Creatinine Est Cr Clr Drug Dosing Est GFR ( Amer) Est GFR (Non-Af Amer) BUN/Creatinine Ratio Glucose POC Glucose Calcium Phosphorus Magnesium Vitamin B12 Folate Nasal Screen MRSA (PCR) Negative 09/17/19 09/17/19 09/17/19 05:21 05:21 05:31 WBC RBC Hgb POC Hgb 14.6 Hct POC Hct 43 MCV MCH MCHC RDW Std Deviation RDW Coeff of Carla Plt Count MPV Sample Site R Radial POC pH 7.43 POC pCO2 75 H POC pO2 76 L POC HCO3 50 H POC Total CO2 > 50 H* POC Base Excess 26.0 H ABG pH (Temp Correct) 7.446 ABG pCO2 (Temp Corrct 72 H POC ABG pO2 at Pt Temp 72 [place] Test Pass O2 Delivery Device BIPAP POC O2 Rate 22 POC FiO2 40 IPAP 18 POC Sodium 134 L Sodium 134 L POC Potassium 4.0 Potassium 3.9 Chloride 88 L Carbon Dioxide 43 H* Anion Gap 3.0 BUN 20 H D Creatinine 0.75 Est Cr Clr Drug Dosing 114.9 Est GFR ( Amer) 107.0 Est GFR (Non-Af Amer) 92.3 BUN/Creatinine Ratio 26.1 H Glucose 127 H POC Glucose Calcium 9.0 Phosphorus 2.1 L Magnesium 2.4 Vitamin B12 Cancelled Folate Cancelled Nasal Screen MRSA (PCR) 09/17/19 09/17/19 08:05 12:16 WBC RBC Hgb POC Hgb Hct POC Hct MCV MCH MCHC RDW Std Deviation RDW Coeff of Carla Plt Count MPV Sample Site POC pH POC pCO2 POC pO2 POC HCO3 POC Total CO2 POC Base Excess ABG pH (Temp Correct) ABG pCO2 (Temp Corrct POC ABG pO2 at Pt Temp [place] Test O2 Delivery Device POC O2 Rate POC FiO2 IPAP POC Sodium Sodium POC Potassium Potassium Chloride Carbon Dioxide Anion Gap BUN Creatinine Est Cr Clr Drug Dosing Est GFR ( Amer) Est GFR (Non-Af Amer) BUN/Creatinine Ratio Glucose POC Glucose 112 H Calcium Phosphorus Magnesium Vitamin B12 490 Folate 16.51 Nasal Screen MRSA (PCR) PG Care Time/CCT Total # of Minutes Spent Total Time Spent with Patient: Total time spent is greater than 50% in coordination of care (as documented) at patient's floor/unit and/or counseling patient: Coding Level of Care Code 83564 Subseq Hosp Care Lvl 2 Diagnoses Acute hypercapnic respiratory failure J96.02 Metabolic encephalopathy G93.41 COPD exacerbation J44.1 Hypertensive urgency I16.0 Hyponatremia E87.1 Nicotine dependence F17.210 Nicotine product type: cigarettes Substance use status: uncomplicated Acute exacerbation of congestive heart failure I50.33 Heart failure type: diastolic Sick sinus syndrome I49.5 Morbid obesity with BMI of 40.0-44.9, adult E66.01; Z68.41 DVT prophylaxis Z29.9 (1) Nicotine dependence Nicotine product type: cigarettes Substance use status: uncomplicated Qualified Code(s): F17.210 - Nicotine dependence, cigarettes, uncomplicated (2) Acute exacerbation of congestive heart failure Heart failure type: diastolic Qualified Code(s): I50.33 - Acute on chronic diastolic (congestive) heart failure
[2019-09-17] MEDS: LATANOPROST 0.005% OP SOLN 2.5 ML BTL OP SCH (20:16)
[2019-09-18] MEDS: HEPARIN SOD 5,000 UNIT/0.5 ML VIAL SQ SCH ×3 (00:18→17:32)
[2019-09-18] MEDS: ALBUT/IPRATROP 3MG/0.5MG NEB 3 ML VIAL NEB SCH ×6 (02:08→22:57)
[2019-09-18 04:59] LABS: BUN Creatinine Ratio 28.8 (10-20); Calcium 8.9 mg/dl (8.5-10.1); Creatinine Clr Calc Pharmacy 93.6 ml/min; Est GFR (African American) 96.6; Est GFR (Non-African American) 83.4; Potassium 3.7 mmol/L (3.5-5.1)
--- NOTE | 2019-09-18 09:08 | Cardiology Progress Note ---
Date of Service September 18, 2019 Assessment & Plan (1) Syncope: He has had several witnessed syncopal events, one in July was evaluated at [facility] where a 12-second pauses reported, he has had recent syncopal events leading to his admission here. I think he is also being evaluated for se izure activity although bradycardia seems more likely and I would probably treat that with a pacemaker and only if there are recurrent episodes consider further evaluation. (2) Bradycardia: He has multiple reported pauses on event monitoring and perhaps on telemetry monitoring at [facility] emergency room in July where a 12-second pauses reported. I have not seen specific diagnoses mentioned for the pauses, I do not know if they are sinus pauses or if they are due to heart block, it does not matter too much but it might be helpful to know. I have not seen these records showing the pauses but they could probably be obtained and it probably would be a good idea before pacemaker implantation. I think he clearly needs a pacemaker based on the data that I have (which does not include rhythm strips to review as noted), I have recommended this to him. He is now agreeable to a pacemaker, I would like his pulmonary status to be a little bit better therefore I am scheduling it for tomorrow. (3) RBBB (right bundle branch block): He has a right bundle branch block pattern on his electrocardiogram, this indicates some AV conduction disease although it does not necessarily mean he had heart block as a cause of his pauses. No specific treatment or further evaluation for this. (4) Hypertension: His blood pressure is markedly elevated, I would not use beta-blockers or negative chronotropic's to treat it. (5) COPD exacerbation: He has longstanding COPD and his lungs still do not sound good although they are improving, as long as he can lay supine without being hypoxic we should be able to place the pacemaker although a few more days of respiratory therapy and antibiotics may be in order before pacemaker implantation. It does not appear to be an emergency, his bradycardia and pauses have been going on for at least several months although he has had a number of syncopal events likely related to it. I cannot exclude the possibility that his pauses are due in part to hypoxia, given the magnitude of them it seems unlikely that that is the sole cause however perhaps review of the tracings could help with that differentiation. Normally with pauses of that duration and clinical syncope even if we think hypoxia might be a contributing factor I would favor a pacemaker. 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 Admission and Anticipated Discharge Date Admission Date: September 13, 2019 Subjective 1 he is much more alert and conversational this morning, he tells me that he is feeling better but is still coughing. He feels his breathing has improved. Physical Exam Physical Exam: Constitutional: Alert, cooperative and in minimal distress. HEENT: Unremarkable Neck: No jugular venous distention, carotid pulses are normal and equal bilaterally without bruits. Pulmonary: Rhonchi and prolonged expiration on auscultation bilaterally. He is using BiPAP currently. Cardiac: Regular rhythm with no murmur, gallop or rub. Abdomen: Soft, nontender with normal bowel sounds. Extremities: Bilateral pretibial edema. Distal pulses intact. Neurologic: No focal findings. Gait not tested. Skin: No rash, ecchymoses or petechiae. Results & Data ([facility]) Vital Signs (Past 12 Hours) Vital Signs Temp Pulse Pulse Pulse Resp BP Pulse Ox 09/18/19 08:13 79 28 H 160/68 H 93 09/18/19 07:00 73 18 94 09/18/19 05:00 36.6 C 09/18/19 04:13 90 22 160/86 H 95 09/18/19 02:13 71 12 148/72 H 98 09/18/19 02:10 64 64 18 94 09/18/19 00:13 36.6 C 69 22 136/73 94 09/18/19 00:00 76 24 96 09/17/19 23:27 73 73 20 94 09/17/19 23:00 77 09/17/19 21:32 78 25 H 166/70 H 95 Laboratory Results Comprehensive Metabolic Panel 09/18/19 Range/Units 04:21 Sodium 133 L (136-145) mmol/L Potassium 3.7 (3.5-5.1) mmol/L Chloride 93 L (98-107) mmol/L Carbon Dioxide 35 H (21-32) mmol/L BUN 26 H (7-18) mg/dl Creatinine 0.92 (0.6-1.4) mg/dl Glucose 137 H (70-99) mg/dl Calcium 8.9 (8.5-10.1) mg/dl Intake and Output 09/17/19 09/18/19 09/18/19 22:59 06:59 14:59 Intake Total 270 / 527.917 Output Total 1999 Balance -280 / -1472.083 -600 / -1472.083 Intake: IV 70 / 327.917 Cardene 25 mg In Nss 240 ml @ 0 0 / 257.917 MG/HR IV .Q0M AJITH Rx#:[id number] Rocephin 2,000 mg In D5w 50 ml 70 / 70 @ 100 mls/hr IV Q24H AJITH Rx#: [id number] Oral 200 / 200 Output: Urine Amount (Catheter) 1999 High/Indwelling 1999 Other: Weight 119.9 kg Diagnostic Findings Telemetry: Sinus rhythm, no significant bradycardia PG Care Time/CCT Total # of Minutes Spent Total Time Spent with Patient: Total time spent is greater than 50% in coordination of care (as documented) at patient's floor/unit and/or counseling patient: Coding Level of Care Code 21361 Subseq Hosp Care Lvl 2 Diagnoses Syncope R55 Syncope type: unspecified Bradycardia R00.1 RBBB (right bundle branch block) I45.10 Hypertension I10 COPD exacerbation J44.1 (1) Syncope Syncope type: unspecified Qualified Code(s): R55 - Syncope and collapse
[2019-09-18] MEDS: methylPREDNISolone 60 MG in SYRINGE 0 ML IV SCH (09:29)
[2019-09-18] MEDS: NIFEdipine EXTENDED REL 30 MG TABCR PO SCH ×2 (09:30→21:27)
[2019-09-18] MEDS: acetaZOLAMIDE 250 MG in SYRINGE 0 ML IV SCH ×2 (09:30→21:54)
[2019-09-18] MEDS: CEROVITE ADV FORMULA TAB PO SCH (09:30)
[2019-09-18] MEDS: DOXYCYCLINE HYCLATE 100 MG CAP PO SCH ×2 (09:31→21:28)
[2019-09-18] MEDS: OMEGA-3 (PURIFIED FISH OIL) 1 GM CAP PO SCH ×2 (09:31→21:28)
[2019-09-18] MEDS: ASPIRIN 325 MG ECTAB PO SCH (09:31)
[2019-09-18] MEDS: CHOLECALCIFEROL 1,000 UNITS 25 MCG TAB PO SCH (09:31)
[2019-09-18] MEDS: NICOTINE 14 MG/24 HR PATCH TD SCH (09:32)
[2019-09-18] MEDS: lisinopriL 20 MG TAB PO SCH (09:32)
[2019-09-18] MEDS: TIMOLOL MALEATE 0.25% OP SOLN 5 ML BTL OP SCH (09:32)
[2019-09-18] MEDS: CLOTRIMAZOLE 1% CR 15 GM TUBE EXT SCH ×2 (09:33→23:26)
[2019-09-18] MEDS ORDERED: ARTIFICIAL TEARS OP PRN (10:36)
--- NOTE | 2019-09-18 10:48 | Hospitalist Progress Note ---
Date of Service September 18, 2019 Assessment & Plan (1) Acute hypercapnic respiratory failure: Improved s/p BIPAP. Did not require intubation/mech ventilation. Acute resp failure was 2nd to COPD exacerbation in the setting of sedative use, etc. Cont BIPAP at HS/naps. maintain NC O2 to keep sats 90-92%. Appreciate pulmonary/critical care assistance. (2) Metabolic encephalopathy: 2nd to severe hypercapnea. Resolved. Cannot rule out some toxic effects from prior meds (trazodone, valium, etc). Cannot rule out hypertensive encephalopathy as BPs were markedly elevated in setting of his confusion. Either way his mentation is much improved. (3) COPD exacerbation: Improved. Stop IV solumedrol; change to prednisone in am 60m. Cont scheduled nebs q4h. supportive care. BIPAP HS/naps or for dyspnea. add mucinex 1200mg BID add tessalon 100mg TID add flutter valve oob to chair finish doxy course (4) Hypertensive urgency: resolved s/p nicardipine drip in the ICU; drip stopped, now on oral agents - hydralazine, EDWARD, nifedipine. labile - cont to follow and adjust meds as needed (5) Hyponatremia: Likely due to diuretics. mildly low but stable. BMP am. (6) Nicotine dependence: nicotine patch 14mg/day (7) Acute exacerbation of congestive heart failure: Lasix held due to contraction alkalosis. Now on diamox BID IV as per critical care team. Plan to treat with such for 3 days or so. BMP in am. add potassium supplementation. (8) Sick sinus syndrome: Dr Duncan willing to perform permanent pacemaker placement tomorrow. NPO after [place] for such. [facility] and [facility] to having pacer placed at [facility]. (9) Morbid obesity with BMI of 40.0-44.9, adult: BMI 41 (10) DVT prophylaxis: heparin 5000 TID care d/w Dr Duncan PT, OT evals speech eval also requested consider removing [email or web address] Admission and Anticipated Discharge Date Admission Date: September 13, 2019 Subjective main complaint is that of cough. several individuals express concern about microaspiration? denies dyspnea at rest. telemetry wnl overnight by report. still willing to have pacemaker placed tomorrow. he also complains of a "starburst" in his left eye. very hard to determine how long he has had this but ultimately he stated "for years". denies pain of either eye. denies discharge. Review of Systems Constitutional: + fatigue; no fever and no anorexia Respiratory: + cough, + chest congestion, + dyspnea on exertion and + wheezing; no hemoptysis Cardiovascular: no chest pain Gastrointestinal: no abdominal pain, no nausea and no vomiting Physical Exam Constitutional: + morbidly obese; no acute distress and no altered mental status Eyes: PERRL; no conjunctival abnormality Respiratory: + prolonged expiratory phase; no respiratory distress Auscultation: + wheezes (b/l - improved today ); no crackles Cardiovascular: Rate/Rhythm: regular rate and regular rhythm Heart Sounds: normal S1 and normal S2; no murmur Vessels: posterior tibial pulses present and dorsalis pedis pulses present; no JVD Extremities: no edema Gastrointestinal (Abdomen): Inspection/Auscultation: abdomen not distended Percussion/Palpation: abdomen soft; abdomen nontender and no hepatosplenomegaly Psychiatric: Orientation: alert and oriented x 3 Results & Data ([facility]) Vital Signs (Past 12 Hours) Vital Signs Temp Pulse Pulse Pulse Resp BP Pulse Ox 09/18/19 10:08 85 18 91 09/18/19 08:13 36.8 C 79 28 H 160/68 H 93 09/18/19 07:00 73 18 94 09/18/19 05:00 36.6 C 09/18/19 04:13 90 22 160/86 H 95 09/18/19 02:13 71 12 148/72 H 98 09/18/19 02:10 64 64 18 94 09/18/19 00:13 36.6 C 69 22 136/73 94 09/18/19 00:00 76 24 96 09/17/19 23:27 73 73 20 94 09/17/19 23:00 77 Laboratory Results Laboratory Results - last 24 hr 09/16/19 09/17/19 09/17/19 13:09 05:31 12:16 POC Total CO2 > 50 H* > 50 H* Sodium Potassium Chloride Carbon Dioxide Anion Gap BUN Creatinine Est Cr Clr Drug Dosing Est GFR ( Amer) Est GFR (Non-Af Amer) BUN/Creatinine Ratio Glucose POC Glucose 112 H Calcium 09/18/19 04:21 POC Total CO2 Sodium 133 L Potassium 3.7 Chloride 93 L Carbon Dioxide 35 H Anion Gap 5.0 BUN 26 H Creatinine 0.92 Est Cr Clr Drug Dosing 93.6 Est GFR ( Amer) 96.6 Est GFR (Non-Af Amer) 83.4 BUN/Creatinine Ratio 28.8 H Glucose 137 H POC Glucose Calcium 8.9 PG Care Time/CCT Total # of Minutes Spent Total Time Spent with Patient: Total time spent is greater than 50% in coordination of care (as documented) at patient's floor/unit and/or counseling patient: Coding Level of Care Code 39688 Subseq Hosp Care Lvl 3 Diagnoses Acute hypercapnic respiratory failure J96.02 Metabolic encephalopathy G93.41 COPD exacerbation J44.1 Hypertensive urgency I16.0 Hyponatremia E87.1 Nicotine dependence F17.210 Nicotine product type: cigarettes Substance use status: uncomplicated Acute exacerbation of congestive heart failure I50.33 Heart failure type: diastolic Sick sinus syndrome I49.5 Morbid obesity with BMI of 40.0-44.9, adult E66.01; Z68.41 DVT prophylaxis Z29.9 (1) Nicotine dependence Nicotine product type: cigarettes Substance use status: uncomplicated Qualified Code(s): F17.210 - Nicotine dependence, cigarettes, uncomplicated (2) Acute exacerbation of congestive heart failure Heart failure type: diastolic Qualified Code(s): I50.33 - Acute on chronic diastolic (congestive) heart failure
[2019-09-18] MEDS: BENZONATATE 100 MG CAPSULE PO SCH ×3 (11:38→21:28)
[2019-09-18] MEDS: POTASSIUM CHLORIDE 20 MEQ TABCR PO SCH (11:38)
[2019-09-18] MEDS: guaiFENesin 600 MG TABCR PO SCH ×2 (11:38→21:28)
[2019-09-18] MEDS: MAGNESIUM OXIDE 400 MG TAB PO SCH (11:39)
[2019-09-18] MEDS: LATANOPROST 0.005% OP SOLN 2.5 ML BTL OP SCH (21:24)
[2019-09-19] MEDS: ALBUT/IPRATROP 3MG/0.5MG NEB 3 ML VIAL NEB SCH ×6 (03:21→23:18)
[2019-09-19] MEDS ORDERED: CEFAZOLIN 2,000 MG/15 ML IV PUSH IV SCH (06:00)
[2019-09-19] MEDS ORDERED: LACTATED RINGER'S 1,000 ML IV SCH (08:00)
[2019-09-19 08:12] LABS: BUN Creatinine Ratio 40.4 (10-20); Calcium 9.8 mg/dl (8.5-10.1); Creatinine Clr Calc Pharmacy 60.4 ml/min; Est GFR (African American) 58.7; Est GFR (Non-African American) 50.6
[2019-09-19] MEDS ORDERED: fentaNYL citrate 100 MCG/2 ML VIAL ONE ×2 (08:37→09:28)
[2019-09-19] MEDS ORDERED: LIDOCAINE HCL 1% 20 ML VIAL ONE (08:37)
[2019-09-19] MEDS ORDERED: MIDAZOLAM HCL 5 MG/ML 1 ML VIAL ONE (08:37)
[2019-09-19] MEDS ORDERED: BACITRACIN INJ 50,000 UNIT VIAL ONE (08:37)
[2019-09-19] MEDS ORDERED: CEFAZOLIN 250 MG/ML 1 GM VIAL ONE (08:37)
--- NOTE | 2019-09-19 08:45 | Cardiology Progress Note ---
Date of Service September 19, 2019 Assessment & Plan (1) Syncope: He has had several witnessed syncopal events, one in July was evaluated at [facility] where a 12-second pauses reported, he has had recent syncopal events leading to his admission here. I think he is also being evaluated for se izure activity although bradycardia seems more likely and I would treat that with a pacemaker and only if there are recurrent episodes consider further evaluation. (2) Bradycardia: He has multiple reported pauses on event monitoring and perhaps on telemetry monitoring at [facility] emergency room in July where a 12-second pauses reported. I have not seen specific diagnoses mentioned for the pauses, I do not know if they are sinus pauses or if they are due to heart block, it does not matter too much as the pacemaker will take care of either. I have not seen these records showing the pauses but they have been documented in the chart on multiple occasions at different locations including with a undertaker helper in [place] so I do not doubt there presents. I think he clearly needs a pacemaker based on the data that I have (which does not include rhythm strips to review as noted), I have recommended this to him. He is now agreeable to a pacemaker, I feel he is stable for pacemaker implantation today. I discussed the indications, procedure, risks and alternatives of pacemaker implantation with him and he understands and agrees to proceed. Consent obtained. I also discussed conscious sedation which we will keep to a minimum due to his respiratory status, he understands and agrees to proceed. Consent obtained. (3) RBBB (right bundle branch block): He has a right bundle branch block pattern on his electrocardiogram, this indicates some AV conduction disease although it does not necessarily mean he had heart block as a cause of his pauses. No specific treatment or further evaluation for this. (4) Hypertension: His blood pressure is markedly elevated, I would not use beta-blockers or negative chronotropic's to treat it now but I will add these after pacemaker implantation. (5) COPD exacerbation: He has longstanding COPD and his lungs still do not sound normal although they have improved substantially, as long as he can lay supine without being hypoxic we should be able to place the pacemaker, he feels he can lay flat but we will test that before sedating him and placing the pacemaker. I cannot exclude the possibility that his pauses are due in part to hypoxia, given the magnitude of them it seems unlikely that that is the sole cause however perhaps review of the tracings could help with that differentiation. Normally with pauses of that duration and clinical syncope even if we think hypoxia might be a contributing factor I would favor a pacemaker. 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 Admission and Anticipated Discharge Date Admission Date: September 13, 2019 Subjective He is feeling relatively well today, although he tells me he did not sleep during the night but that was because he was having trouble tolerating his BiPAP and coughing. He tells me that he can lay flat for the test although he might cough. No lightheadedness or dizziness. Physical Exam Physical Exam: Constitutional: Alert, cooperative and in minimal distress. HEENT: Unremarkable Neck: No jugular venous distention, carotid pulses are normal and equal bilaterally without bruits. Pulmonary: Rhonchi and prolonged expiration on auscultation bilaterally. He is using BiPAP currently. Cardiac: Regular rhythm with no murmur, gallop or rub. Abdomen: Soft, nontender with normal bowel sounds. Extremities: Bilateral pretibial edema. Distal pulses intact. Neurologic: No focal findings. Gait not tested. Skin: No rash, ecchymoses or petechiae. Results & Data ([facility]) Vital Signs (Past 12 Hours) Vital Signs Temp Pulse Pulse Resp BP Pulse Ox 09/19/19 07:55 36.6 C 81 22 143/75 H 97 09/19/19 07:02 79 18 98 09/19/19 03:23 78 20 97 09/19/19 03:05 36.8 C 88 20 173/80 H 92 09/18/19 23:29 77 09/18/19 23:25 36.7 C 78 18 139/80 96 09/18/19 22:57 67 27 H 30 L 09/18/19 22:50 67 35 H 97 Laboratory Results Comprehensive Metabolic Panel 09/19/19 Range/Units 07:11 Sodium 133 L (136-145) mmol/L Potassium (3.5-5.1) mmol/L Chloride 96 L (98-107) mmol/L Carbon Dioxide 32 (21-32) mmol/L BUN 56 H D (7-18) mg/dl Creatinine 1.39 D (0.6-1.4) mg/dl Glucose 98 (70-99) mg/dl Calcium 9.8 (8.5-10.1) mg/dl Intake and Output 09/18/19 09/19/19 09/19/19 22:59 06:59 14:59 Intake Total 720 / 720 Balance 720 / 120 Intake: Oral 720 / 720 Other: # Unmeasured Voids 3 Weight 119.9 kg Diagnostic Findings Telemetry: Continued sinus rhythm, no atrial arrhythmia or heart block PG Care Time/CCT Total # of Minutes Spent Total Time Spent with Patient: Total time spent is greater than 50% in coordination of care (as documented) at patient's floor/unit and/or counseling patient: Coding Level of Care Code 80540 Subseq Hosp Care Lvl 2 Diagnoses Syncope R55 Syncope type: unspecified Bradycardia R00.1 RBBB (right bundle branch block) I45.10 Hypertension I10 COPD exacerbation J44.1 (1) Syncope Syncope type: unspecified Qualified Code(s): R55 - Syncope and collapse
--- NOTE | 2019-09-19 08:54 | Pre Anesthesia Assessment ---
Date of Service September 19, 2019 Pre Sedation Assessment Vital Signs Temp Pulse Pulse Resp BP BP Pulse Ox 09/19/19 07:55 36.6 C 81 22 143/75 H 97 09/19/19 07:02 79 18 98 09/19/19 03:23 78 20 97 09/19/19 03:05 36.8 C 88 20 173/80 H 92 09/18/19 23:29 77 09/18/19 23:25 36.7 C 78 18 139/80 96 09/18/19 22:57 67 27 H 30 L 09/18/19 22:50 67 35 H 97 09/18/19 19:25 36.4 C L 92 H 17 156/77 H 93 09/18/19 19:09 109 H 20 90 09/18/19 15:36 36.6 C 89 21 114/67 94 09/18/19 15:13 101 H 18 95 09/18/19 11:47 37.0 C 83 17 146/70 H 92 09/18/19 10:08 85 18 91 Cardiovascular RRR, no murmur, no edema Respiratory + prolonged expiratory phase + wheezes Pre-Sedation Airway Assessment Smoking Status: Current every day smoker Hx Sleep Apnea: No Short, Thick Neck: Yes Thyromental Distance: > or= 3.5 Finger Breadths Oral Cavity: + Chipped Teeth Mallampati Class: IV ASA: ASA4 NPO Status Date of Last Intake of Fluids: 09/19/19 Time of Last Intake of Fluids: 00:00 Date of Last Intake of Solid Food: 09/19/19 Time of Last Intake of Solid Foods: 00:00 Procedure Planning Contraindications for Sedation: none Current Medications Reviewed: Yes Notes The planned sedation has been discussed with the patient. Informed Consent was obtained. I have identified the patient, determined the appropriateness of sedation and have assessed the patient immediately prior to the procedure. All medicine(s) and interventions are by my order.
[2019-09-19] MEDS ORDERED: BACITRACIN OINT 0.9 GM PKT ONE (09:47)
[2019-09-19] MEDS ORDERED: ACETAMINOPHEN 325 MG TAB PO PRN (10:09)
[2019-09-19] MEDS ORDERED: KETOROLAC TROMETHAMINE 10 MG TABLET PO PRN (10:09)
--- NOTE | 2019-09-19 10:09 | Electrophysiology Report ---
Date of Service September 19, 2019 Electrophysiology Procedure Electrophysiology Procedure Report Preoperative diagnosis: Pause with syncope Postoperative diagnosis: Same Procedure: 1. Left subclavian venogram 2. 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 Dye was injected the left arm IV site to opacify the left subclavian vein. The subclavian vein was identified and found to be free of obstruction. The left prepectoral region was anesthetized with 1% lidocaine local anesthetic and left axillary venipuncture was performed by percutaneous technique and a guidewire placed through the left subclavian vein into the superior vena cava. The area was further infiltrated with 1% lidocaine local anesthetic and a 5 cm incision was made parallel to the left clavicle and 2 cm below it and carried down to the anterior pectoralis fascia. A pacemaker pocket was formed by blunt dissection anterior to the pectoralis fascia and a bacitracin-soaked sponge (50,000 units in 50 cc normal saline solution) was placed in the pocket. An 8 [place] Med[employer] lead introducer was placed over the guidewire into the left subclavian vein, the dilator and guidewire were removed and a bipolar active fixation steroid tipped ventricular lead was advanced through the introducer into the superior vena cava. A guidewire was placed through the introducer and the introducer was stripped from the lead and guidewire. Another 8 [place] Med[employer] lead introducer was placed over the guidewire into the left subclavian vein, the dilator and guidewire were removed and a bipolar active fixation steroid tipped atrial lead was advanced through the introducer into the superior vena cava. A guidewire was placed back through the introducer and the introducer was stripped from the lead and guidewire. Using a curved stylette the ventricular lead was advanced through the right ventricular outflow tract into the pulmonary artery and then using a straight stylette was positioned in the right ventricular apex. The screw was extended fi ronak the lead in position. Pacing and sensing thresholds were evaluated in bipolar configuration and are recorded on the implant data sheet. Using a curved stylette the atrial lead was positioned in the region of the atrial appendage and the screw extended fixing the lead in position. Pacing and sensing thresholds were evaluated in bipolar configuration and are recorded on the implant data sheet. Once the leads were in position they were attached to the anterior pectoralis fascia using 2 sutures of 2-0 silk around each lead collar. The bacitracin- soaked sponge was removed from the pocket, hemostasis was obtained, the pacemaker was attached to the leads and placed in the pocket with the leads coiled beneath it. The incision was closed with a running double subcutaneous closure of 3-0 Vicryl absorbable suture, followed by running subcuticular skin closure of 4-0 Vicryl absorbable suture. Bacitracin ointment was placed on the incision and a pressure dressing applied. [facility] Electrophysiology codes Indication for Procedure (1) Syncope: (2) Bradycardia: Pacing Procedure 1: Pacin Insert/Replace Pacer A & V Miscellaneous Procedures Procedure 1: EP Miscellaneous: 26263 Contrast injection for venography Procedure 2: EP Miscellaneous: 21373-65 Vengraphy, extremity PG Moderate Sedation Codes Moderate Sedation Codes Procedure 1: Sedation/Anesthesia: 29858 Mod Sedation by the same physician;Init15 Min Child Age 5 & Up Procedure 2: Sedation/Anesthesia: 86177 Mod Sedation by the same physician; Ea [id number] Minutes Procedure 3: Sedation/Anesthesia: 58169 Mod Sedation by the same physician; Ea [id number] Minutes
[2019-09-19] MEDS: NIFEdipine EXTENDED REL 30 MG TABCR PO SCH ×2 (10:41→20:29)
[2019-09-19] MEDS: DOXYCYCLINE HYCLATE 100 MG CAP PO SCH ×2 (10:41→20:30)
[2019-09-19] MEDS: CEROVITE ADV FORMULA TAB PO SCH (10:41)
[2019-09-19] MEDS: ASPIRIN 325 MG ECTAB PO SCH (10:41)
[2019-09-19] MEDS: OMEGA-3 (PURIFIED FISH OIL) 1 GM CAP PO SCH ×2 (10:41→20:29)
[2019-09-19] MEDS: predniSONE 20 MG TAB PO SCH (10:42)
[2019-09-19] MEDS: guaiFENesin 600 MG TABCR PO SCH ×2 (10:42→20:29)
[2019-09-19] MEDS: lisinopriL 20 MG TAB PO SCH (10:42)
[2019-09-19] MEDS: POTASSIUM CHLORIDE 20 MEQ TABCR PO SCH (10:42)
[2019-09-19] MEDS: BENZONATATE 100 MG CAPSULE PO SCH ×3 (10:42→20:40)
[2019-09-19] MEDS: CHOLECALCIFEROL 1,000 UNITS 25 MCG TAB PO SCH (10:42)
[2019-09-19] MEDS: CLOTRIMAZOLE 1% CR 15 GM TUBE EXT SCH ×2 (10:43→20:29)
[2019-09-19] MEDS: TIMOLOL MALEATE 0.25% OP SOLN 5 ML BTL OP SCH (10:43)
[2019-09-19] MEDS: NICOTINE 14 MG/24 HR PATCH TD SCH (10:44)
--- NOTE | 2019-09-19 11:15 | Post Anesthesia Assessment ---
Date of Service September 19, 2019 Post Sedation Assessment Vital Signs Temp Pulse Pulse Pulse Resp BP BP 09/19/19 10:24 85 16 153/72 H 09/19/19 10:08 90 16 178/89 H 09/19/19 08:00 70 09/19/19 07:55 36.6 C 81 22 143/75 H 09/19/19 07:02 79 18 09/19/19 03:23 78 20 09/19/19 03:05 36.8 C 88 20 173/80 H 09/18/19 23:29 77 09/18/19 23:25 36.7 C 78 18 139/80 09/18/19 22:57 67 27 H 09/18/19 22:50 67 35 H 09/18/19 19:25 36.4 C L 92 H 17 156/77 H 09/18/19 19:09 109 H 20 09/18/19 15:36 36.6 C 89 21 114/67 09/18/19 15:13 101 H 18 09/18/19 11:47 37.0 C 83 17 146/70 H Pulse Ox 09/19/19 10:24 92 09/19/19 10:08 92 09/19/19 08:00 09/19/19 07:55 97 09/19/19 07:02 98 09/19/19 03:23 97 09/19/19 03:05 92 09/18/19 23:29 09/18/19 23:25 96 09/18/19 22:57 30 L 09/18/19 22:50 97 09/18/19 19:25 93 09/18/19 19:09 90 09/18/19 15:36 94 09/18/19 15:13 95 09/18/19 11:47 92 Discharge Sedation Level of Care: Fast Track Phase II Post Sedation Plan On clinical assessment, the patient appears to have tolerated the sedation without complications. Patient is recovering as anticipated. Patient will continue to be monitored by nursing and may be discharged when sedation discharge criteria are met per below protocol. Upon Completions of procedure up to 15 minutes continue every 5 minute vital signs and the P.A.R. score; then discharge to a Phase I or Fast Track to Phase II per the following guidelines: * Discharge Patient to appropriate Phase II area if PAR is 8 or greater or return to pre- procedure baseline. The post - procedure orders will be as directed. * If PAR score is less than 8 or not return to pre-procedure baseline then patient will follow Phase I monitoring till PAR is reached for Phase II. The Phase I may be done in procedure room or may call to secure a Phase I area. * If naloxone or flumazenil are used for reversal, hold in Phase I for continued monitoring from when last reversal dose was given for a minimum of 60 minutes or longer pending the nurse and/or physician discretion of patient condition before discharge to Phase II. Please call the Sedation Physician to re-evaluate and complete post-note for discharge to Phase II area. Do NOT discharge from procedure sedation or Phase 1 until post- sedation evaluation note is complete by procedure /sedation MD Sedation Discharge Instructions to be given to the patient at discharge to home.
[2019-09-19] MEDS: METOPROLOL TARTRATE 25 MG TAB PO SCH ×2 (13:12→20:30)
[2019-09-19] MEDS: MAGNESIUM OXIDE 400 MG TAB PO SCH (13:14)
--- NOTE | 2019-09-19 14:48 | Electrocardiogram Report ---
Test Reason : Blood Pressure : / mmHG Vent. Rate : 085 BPM Atrial Rate : 085 BPM P-R Int : 148 ms QRS Dur : 138 ms QT Int : 386 ms P-R-T Axes : 065 -56 021 degrees QTc Int : 459 ms Normal sinus rhythm Right bundle branch block Left anterior fascicular block Cannot rule out Inferior infarct , age undetermined Abnormal ECG When compared with ECG of 17-SEP-2019 08:26, No significant change Confirmed by Daniel Aguirre ([id number]) on 09/19/2019 2:48:16 PM Referred By: REFERRED SELF Confirmed By:Daniel Aguirer
[2019-09-19] MEDS: LATANOPROST 0.005% OP SOLN 2.5 ML BTL OP SCH (20:25)
--- NOTE | 2019-09-19 21:43 | Hospitalist Progress Note ---
Date of Service September 19, 2019 Assessment & Plan (1) Visual disturbance: left eye. I spoke with on-call ophtho Dr Rodriguez. He will need a dilated eye exam after discharge. Exact etiology uncertain. Retinal detachment unlikely. Acute glaucoma unlikely. no signs/symptoms of uveitis. vitreous hemorrhage? even if present there is no Rx. follow carefully. (2) Acute hypercapnic respiratory failure: Improved s/p BIPAP. Did not require intubation/mech ventilation. Acute resp failure was 2nd to COPD exacerbation in the setting of sedative use, etc. Cont BIPAP at HS/naps. maintain NC O2 to keep sats 90-92%. wean as tolerated. Appreciate pulmonary assistance. (3) Metabolic encephalopathy: 2nd to severe hypercapnea. Resolved. (4) COPD exacerbation: Improving Cont prednisone 60mg/day x 3 days, then wean. Cont scheduled nebs q4h. supportive care. BIPAP HS/naps or for dyspnea. mucinex 1200mg BID tessalon 100mg TID flutter valve oob to chair finish doxy course (5) Hypertensive urgency: resolved s/p nicardipine drip in the ICU; drip stopped, now on oral agents - hydralazine, EDWARD, nifedipine. labile - cont to follow and adjust meds as needed but much improved (6) Hyponatremia: Likely due to diuretics. mildly low but stable. BMP am. (7) Nicotine dependence: nicotine patch 14mg/day (8) Acute exacerbation of congestive heart failure: resolved Cr rudy overnight d/c diamox hold all diuretics BMP again in am (9) Sick sinus syndrome: s/p permanent pacemaker placement by Dr Duncan today cxr in am (10) Morbid obesity with BMI of 40.0-44.9, adult: BMI 41 (11) DVT prophylaxis: heparin 5000 TID - hold for pacer placement today OT eval done - ok for d/c home; await PT eval home tomorrow if PT clears him for home Admission and Anticipated Discharge Date Admission Date: September 13, 2019 Subjective pt c/o "blue hue" around most objects in room - mainly from left eye. left eye also blurry. no flashes of light, pain or floaters. thinks the BIPAP mask "hit his eye" causing the above symptoms. at baseline vision is 20/80. follows with [place] opht[facility] - has had numerous surgeries for cataracts and glaucoma. c/o cough - no worse than previous. mild YO today tele stable overnight. did undergo pacer placement today successfully w/o apparent complications. Review of Systems Constitutional: no fever and no chills Respiratory: + cough, + sputum production and + wheezing Cardiovascular: no chest pain Physical Exam Constitutional: + morbidly obese; no acute distress and no altered mental status Eyes: PERRL (although constriction is sluggish - he states this is chronic ) and EOM intact bilaterally; no conjunctival abnormality ENMT: external ear and nose normal, oropharynx normal Respiratory: + prolonged expiratory phase; no respiratory distress Auscultation: + wheezes (b/l - much improved); no crackles Cardiovascular: Rate/Rhythm: regular rate and regular rhythm Heart Sounds: normal S1 and normal S2; no murmur Vessels: posterior tibial pulses present and dorsalis pedis pulses present; no JVD Extremities: no edema Gastrointestinal (Abdomen): Inspection/Auscultation: abdomen not distended Percussion/Palpation: abdomen soft; abdomen nontender and no hepatosplenomegaly Skin: pacer site left upper chest clean Psychiatric: Orientation: alert and oriented x 3 Results & Data ([facility]) Vital Signs (Past 12 Hours) Vital Signs Temp Pulse Pulse Pulse Resp BP BP 09/19/19 19:41 36.9 C 81 18 134/58 L 09/19/19 19:17 83 18 09/19/19 15:46 86 20 09/19/19 15:43 36.7 C 67 18 144/77 H 09/19/19 13:00 92 H 20 170/80 H 09/19/19 12:38 36.6 C 82 18 151/74 H 09/19/19 12:00 82 22 125/78 09/19/19 11:30 86 22 148/82 H 09/19/19 11:15 88 22 151/80 H 09/19/19 10:54 88 90 22 122/80 09/19/19 10:24 85 16 153/72 H 09/19/19 10:08 90 16 178/89 H Pulse Ox 09/19/19 19:41 91 09/19/19 19:17 95 09/19/19 15:46 94 09/19/19 15:43 94 09/19/19 13:00 93 09/19/19 12:38 91 09/19/19 12:00 93 09/19/19 11:30 92 09/19/19 11:15 93 09/19/19 10:54 92 09/19/19 10:24 92 09/19/19 10:08 92 BMP - Cr 1.39 HCO3 now low 30s PG Care Time/CCT Total # of Minutes Spent Total Time Spent with Patient: Total time spent is greater than 50% in coordination of care (as documented) at patient's floor/unit and/or counseling patient: Coding Level of Care Code 45848 Subseq Hosp Care Lvl 3 Diagnoses Visual disturbance H53.9 Acute hypercapnic respiratory failure J96.02 Metabolic encephalopathy G93.41 COPD exacerbation J44.1 Hypertensive urgency I16.0 Hyponatremia E87.1 Nicotine dependence F17.210 Nicotine product type: cigarettes Substance use status: uncomplicated Acute exacerbation of congestive heart failure I50.33 Heart failure type: diastolic Sick sinus syndrome I49.5 Morbid obesity with BMI of 40.0-44.9, adult E66.01; Z68.41 DVT prophylaxis Z29.9 (1) Nicotine dependence Nicotine product type: cigarettes Substance use status: uncomplicated Qualified Code(s): F17.210 - Nicotine dependence, cigarettes, uncomplicated (2) Acute exacerbation of congestive heart failure Heart failure type: diastolic Qualified Code(s): I50.33 - Acute on chronic diastolic (congestive) heart failure
[2019-09-19] MEDS ORDERED: HYDROCODONE/HOMATROPINE SYRUP 5MG/1.5MG 5ML UDP PO STA (21:57)
[2019-09-20] MEDS: ALBUT/IPRATROP 3MG/0.5MG NEB 3 ML VIAL NEB SCH ×3 (03:29→10:51)
[2019-09-20] MEDS ORDERED: SODIUM CHLORIDE 0.9% 1000ML 250 ML IV ONE (03:50)
--- NOTE | 2019-09-20 06:57 | XRay Report ---
XR chest 2V PA/lateral HISTORY: 69 years-old Male EXACT TIME ORDERED Evaluate for pneumothorax and l status post placement of a left subclavian pacer COMPARISON: Chest radiograph 09/17/2019 TECHNIQUE: PA and lateral views of the chest FINDINGS: Cardiac silhouette is enlarged. Calcified plaque of the thoracic aortic arch. Left subclavian pacer. There is no pneumothorax, pleural effusion, airspace consolidation or overt pulmonary edema. Degenera tive changes of the shoulders and spine. Lower cervical spine fusion hardware. IMPRESSION: Status post placement of a left subclavian pacer. No postprocedural pneumothorax. ACT 112: Negative or not required by law. The above report was generated using voice recognition software. It may contain grammatical, syntax o r spelling errors. Electronically signed by: Edgar Mitchell M.D. 09/20/2019 6:56 AM
[2019-09-20] MEDS: METOPROLOL TARTRATE 25 MG TAB PO SCH (08:20)
[2019-09-20] MEDS: CHOLECALCIFEROL 1,000 UNITS 25 MCG TAB PO SCH (08:21)
[2019-09-20] MEDS: CEROVITE ADV FORMULA TAB PO SCH (08:21)
[2019-09-20] MEDS: POTASSIUM CHLORIDE 20 MEQ TABCR PO SCH (08:21)
[2019-09-20] MEDS: guaiFENesin 600 MG TABCR PO SCH (08:21)
[2019-09-20] MEDS: ASPIRIN 325 MG ECTAB PO SCH (08:21)
[2019-09-20] MEDS: NIFEdipine EXTENDED REL 30 MG TABCR PO SCH (08:21)
[2019-09-20] MEDS: lisinopriL 20 MG TAB PO SCH (08:21)
[2019-09-20] MEDS: predniSONE 20 MG TAB PO SCH (08:22)
[2019-09-20] MEDS: OMEGA-3 (PURIFIED FISH OIL) 1 GM CAP PO SCH (08:22)
[2019-09-20] MEDS: NICOTINE 14 MG/24 HR PATCH TD SCH (08:22)
[2019-09-20] MEDS: CLOTRIMAZOLE 1% CR 15 GM TUBE EXT SCH (08:23)
[2019-09-20] MEDS: TIMOLOL MALEATE 0.25% OP SOLN 5 ML BTL OP SCH (08:24)
[2019-09-20 09:51] LABS: Hematocrit (blood only) 44.1 % (42-52); Hemoglobin 14.9 g/dL (14.0-18.0); Mean Corpuscular Hemoglobin 32.5 pg (25-34); Mean Corpuscular Hgb Conc 33.8 g/dL (32-36); Mean Corpuscular Volume 96.3 fL (80-100); Mean Platelet Volume 9.8 fL (7.4-10.4); Platelet Count 234 K/uL (130-400); RDW Coefficient of Variation 13.8 % (11.5-14.5); RDW Standard Deviation 48.7 fL (36.4-46.3); Red Blood Count 4.58 M/uL (4.7-6.1); White Blood Count 10.64 K/uL (4.8-10.8)
--- NOTE | 2019-09-20 10:15 | Cardiology Progress Note ---
Date of Service September 20, 2019 Assessment & Plan (1) Status post placement of cardiac pacemaker: He is doing well postop day #1 following pacemaker implantation. The site looks good, the device is working well on evaluation and leads are in good position on chest x-ray. From my standpoint he is stable for discharge. I will make arrangements for wound check on Monday. (2) Syncope: He has had several witnessed syncopal events, one in July was evaluated at [facility] where a 12-second pauses reported, he has had recent syncopal events leading to his admission here. I think he is also being evaluated for seizure activity although bradycardia seems more likely and I would treat that with a pacemaker and only if there are recurrent episodes consider further evaluation. (3) Bradycardia: He has multiple reported pauses on event monitoring and perhaps on telemetry monitoring at [facility] emergency room in July where a 12-second pauses reported. We have not observe that here, but now with the pacemaker in place this should not be an issue. Admission and Anticipated Discharge Date Admission Date: September 13, 2019 Subjective He is feeling relatively well, he does not have incisional discomfort, he has no palpitations, lightheadedness or dizziness. Physical Exam Physical Exam: His pacemaker site is clean and dry, there is no swelling or erythema and no bleeding. Minimal tenderness. Results & Data ([facility]) Vital Signs (Past 12 Hours) Vital Signs Temp Pulse Pulse Resp BP BP Pulse Ox 09/20/19 08:18 36.5 C 89 20 124/57 L 91 09/20/19 07:28 80 09/20/19 07:21 84 18 96 09/20/19 03:15 36.6 C 81 18 133/74 96 09/19/19 23:57 77 09/19/19 23:34 36.9 C 74 16 169/67 H 91 09/19/19 23:19 73 18 93 Laboratory Results CBC 09/20/19 Range/Units 09:33 WBC 10.64 (4.8-10.8) K/uL RBC 4.58 L (4.7-6.1) M/uL Hgb 14.9 (14.0-18.0) g/dL Hct 44.1 (42-52) % Plt Count 234 (130-400) K/uL Intake and Output 09/19/19 09/20/19 09/20/19 22:59 06:59 14:59 Intake Total 275 / 2175 1250 / 2175 Balance 275 / 2175 1250 / 2175 Intake: IV 1250 / 1250 Lr 1,000 ml @ 15 mls/hr IV . 1000 / 1000 Q24H AJITH Rx#:[id number] Nss 1000ML 250 ml @ 999 mls/hr 250 / 250 IV .Q16M ONE Rx#:[id number] Oral 275 / 925 Other: # Unmeasured Voids 2 Weight 120 kg Diagnostic Findings Postop ECG: Appropriate pacemaker inhibition Telemetry: Sinus rhythm, no significant pacing appropriately Chest x-ray: Good lead position, no pneumothorax Pacemaker evaluation: Excellent measurements PG Care Time/CCT Total # of Minutes Spent Total Time Spent with Patient: Total time spent is greater than 50% in coordination of care (as documented) at patient's floor/unit and/or counseling patient: Coding Level of Care Code 72244 Post Operative Follow-Up Diagnoses Status post placement of cardiac pacemaker Z95.0 Syncope R55 Syncope type: unspecified Bradycardia R00.1 CPT Codes Dual Lead Pacemaker System - 61920 ([id number]) (1) Syncope Syncope type: unspecified Qualified Code(s): R55 - Syncope and collapse
[2019-09-20 10:19] LABS: BUN Creatinine Ratio 45.4 (10-20); Calcium 9.1 mg/dl (8.5-10.1); Creatinine Clr Calc Pharmacy 57.9 ml/min; Est GFR (African American) 55.8; Est GFR (Non-African American) 48.1; Potassium 3.4 mmol/L (3.5-5.1)
[2019-09-20] MEDS: MAGNESIUM OXIDE 400 MG TAB PO SCH (11:37)
[2019-09-20] MEDS: BENZONATATE 100 MG CAPSULE PO SCH (11:37)
--- NOTE | 2019-09-20 14:13 | Discharge Summary ---
Date of Service date of admission - September 13, 2019 date of discharge - September 20, 2019 Admission HPI Per Admitting Provider The patient is a 69 year old with past medical history of congestive heart failure, sick sinus syndrome, COPD, tobacco use, and who is legally blind who was brought to the emergency room with a complaint of an episode of syncope secondary to hypoxia occurring approximately 1 hour ago prior to arrival. Per patient the patient was laying down at home when he suddenly sat up and fell backwards. Patient's reports that his eyes rolled back and he was unconscious approximately for 20 seconds. The patient reports that he had a grand mal seizure due to medication reaction many years ago and he does not take that medication anymore. Patient supposed to be on 2 L of oxygen at night and have pacemaker placed in near future. Since patient goes to the [facility] we are not able to obtain his records at this time. Per patient he was referred from [facility] to [place] for further evaluation. He sees Dr. Appiah permastone installer. Patient denies fever, chills, chest pain, abdominal pain, frequency, urgency, back pain, nausea, vomiting. Patient continues to smoke. Patient states that he does not smoke a lot but he did in the past. He smokes approximately several cigarettes per day. Labs are reviewed: WBCs 8.53, hemoglobin 15.4, hematocrit 46.7, platelets 183, PT 10.5, INR 1, APTT 29.2 d-dimer is 660, sodium 134, potassium 4, chloride 96, carbon dioxide 36, anion gap 2, BUN 10, creatinine 0.73, GFR 93.3, glucose 112, calcium 8.9, magnesium 2.1, total bilirubin 0.2, alkaline phosphatase 103, troponin 0.015, BNP 207, total protein 7.6, albumin 3.2, globulin 4.4, TSH pending. CTA of the chest: There is no pulmonary embolism, there is no airspace consolidation or pleural effusion. Mild diffuse tomer-bronchial thickening suggests bronchitis reactive airway disease. Decision was made to admit patient for acute exacerbation of CHF, syncope, and acute exacerbation of COPD. Principal Diagnosis acute hypercapneic respiratory failure 2nd COPD exacerbation sick sinus syndrome s/p pacemaker placement Discharge Exam Constitutional + morbidly obese; no acute distress and no altered mental status Eyes PERRL (although constriction is sluggish - he states this is chronic ) and EOM intact bilaterally; no conjunctival abnormality ENMT external ear and nose normal, oropharynx normal Respiratory + prolonged expiratory phase; no respiratory distress Auscultation: + wheezes (b/l - much improved); no crackles Cardiovascular Rate/Rhythm: regular rate and regular rhythm Heart Sounds: normal S1 and normal S2; no murmur Vessels: posterior tibial pulses present and dorsalis pedis pulses present; no JVD Extremities: no edema Gastrointestinal (Abdomen) Inspection/Auscultation: abdomen not distended Percussion/Palpation: abdomen soft; abdomen nontender and no hepatosplenomegaly Skin pacemaker site - upper chest - dressing intact, clean, no hematoma Psychiatric Orientation: alert and oriented x 3 Discharge Data Allergies Allergy/AdvReac Type Severity Reaction Status Date / Time gabapentin Allergy Unknown Unverified 09/23/19 15:42 muscle relaxers Allergy Unknown Uncoded 09/23/19 15:42 Consultations 1. [facility] Cardiology - Cale Duncan MD 2. Psychiatry 3. Animal Doctor 4. Patient Rep / Service Excellence 5. PT, OT Procedures Performed Operation Date: 09/19/19 09:00 Actual Procedures p Pacer with A/V Leads (Dual) - Cale Duncan MD Ordered Studies 09/13/19 CT angio chest PE protocol - IMPRESSION: 1. There is no evidence of pulmonary embolus in the main, lobar, or segmental pulmonary arteries. 2. There is no airspace consolidation or pleural effusion. 3. Mild diffuse peribronchial thickening suggests bronchitis/reactive airway di sease. Clinical correlation will be required. 09/19/19 06:30 CL Cath Imgs for PACS use only Routine Echocardiogram - * EF 60-65% * grade 1 diastolic dysfunction * poor views * mildly dilated IVC * RV not well seen Hospital Course (1) Acute hypercapnic respiratory failure: Developed acute hypercapnic respiratory failure 2nd to COPD exacerbation in the setting of sedative use, likely undiagnosed/untreated JENA, etc. Respiratory failure also compounded by acute diastolic CHF. Required BIPAP and transfer to the ICU for fear of requiring intubation/mech ventilation. Fortunately he did not require intubation/mech ventilation. With IV steroids, diuresis, BIPAP, and time his respiratory failure improved. Dneg recommendations for his care were made by pulmonary/critical care. He ultimately was transitioned back to the telemetry unit and NC O2 was weaned off. O2 sats in room air were normal with walking on day of discharge. (2) COPD exacerbation: Improved with use of non-invasive positive pressure ventilation, IV steroids, doxycycline, and time. He will complete a prednisone taper post-discharge. He was given prescriptions for nebulizer machine and nebs for use after discharge. He was counseled to quit smoking. Ideally should [facility]. NC O2 was weaned off prior to discharge. (3) Acute exacerbation of congestive heart failure: 2nd to diastolic dysfunction. See echo report above. Treated initially with IV lasix, then diamox. Volume status improved prior to discharge. He will resume lasix 48 hours post-discharge. He was counseled on importance of dietary and fluid compliance. (4) Sick sinus syndrome: s/p permanent pacemaker placement Dr Cale Duncan. Post-procedure cxr without any pneumothorax. Pacemaker site was intact at discharge, and activity restrictions were delineated at discharge as well. (5) Visual disturbance: left eye. Patient c/o decreased vision/blurry vision beyond his typical, baseline visual issues. He also stated he occasionally saw a "starburst" from the left eye. However, he denied pain in the eye, flashes of light, etc. I spoke with on-call ophthamology during this hospitalization. Patient will need a dilated eye exam shortly after discharge. Exact etiology of his symptoms were uncertain. Retinal detachment unlikely. Acute glaucoma unlikely. no signs/symptoms of uveitis. Again he will need a dilated eye exam shortly after discharge. (6) Metabolic encephalopathy: 2nd to severe hypercapnea. Resolved. (7) Hypertensive urgency: Resolved s/p nicardipine drip in the ICU; drip stopped and transitioned to oral agents (metoprolol and lisinopril along with lasix). Will need a BMP shortly after discharge to ensure stability of creatinine. (8) Hyponatremia: Likely due to diuretics. mildly low but stable throughout his stay. Discharge Na level was 132. (9) Nicotine dependence: nicotine patch 14mg/day while here. counseled to quit. (10) Morbid obesity with BMI of 40.0-44.9, adult: BMI 41 (11) Syncope: Likely 2nd to sick sinus syndrome in the setting of illness. NO further episodes while hospitalized. Total Time Total Time Spent Total Time Spent (In Minutes): 45 Total Time Includes: Examination of the Patient, Discharge Planning and Medication Reconciliation Discharge Plan Discharge Items Patient Disposition: Home - Self-Care Reason For Visit: SYNCOPE (passing out spell) Discharge Diagnosis: 1. COPD exacerbation (respiratory illness leading to cough/wheezing/shortness of breath) 2. passing out spell - likely due to heart rhythm problems - placement of pacemaker device by Dr Duncan 3. visual problems Activity: As commented below Activity Comment: gradually increase activities over the next 5-7 days Driving/Machine Use: no driving Non-emergency contact: Primary Care Provider, Irrigation Tax Assessor Collector and Dining Service Inspector Call non-emergency contact if: you have any medication questions and you have a fever Follow-up/Referrals: Dr. Rita Costa [Other] - 11/04/19 3:20 pm (Please, follow up with Dr. Rita Costa (practice managers) at [facility] on MondayNovember 03 at 3:20 pm. *If you need to change this appointment, call the office at .) Cale Duncan MD [Physician] - 09/23/19 10:00 am PCP,NO [Primary Care Provider] - Diet: Heart Healthy Addtl Attending Provider Instructions: You were treated for respiratory failure which was due to COPD exacerbation. COPD exacerbation is when you have a respiratory illness that triggers your COPD and causes cough, wheezing, and difficulty breathing. You were quite sick - having to go to the ICU and you needed the BIPAP machine for well over 24 hours. You improved with steroids, antibiotics, water pills and time. You also complained of left eye visual disturbance and blurry vision. You were treated for fluid in the lungs with water pills through your IV. This is a form of congestive heart failure. Finally, a pacemaker was placed as a recent episode of passing out was likely due to a heart rhythm problem. Recommendations: 1. take prednisone course starting 09/21/2019. This is for 10 days. Take with food. 2. use your nebulizer machine 4 times a day until you see your doctors in follow-up. Take the prescription for the nebulizer machine to a local medical supply company. The medication for the machine is at [facility] pharmacy. 3. may use ejbp-gxz-uoxnnou mucinex up to 1200mg twice daily for cough. 4. may use tessalon pearles up to 3 times a day for cough; prescription sent to [facility]. 5. TWO NEW blood pressure pills have been prescribed. These were sent to [facility]. * metoprolol - take twice a day and start TONIGHT * lisinopril 20mg once daily -- DO NOT START THIS until your blood work is checked on Monday. If your blood work is ok you can start this medication. Dr Duncan can tell you if it is ok to start the medication then. 6. Try to quit smoking. Nicoderm patch has been prescribed. 7. have a blood test THIS MONDAY in the morning before your appointment with Dr Duncan. Again - this blood work is needed before you start the lisinopril medication as noted above. Bring the lab script with you on Monday. There is a lab in the same building as Dr Duncan. 8. Visual issues - see your eye doctor THIS WEEK if possible. 9. Get [facility] [place]. I am certain you likely have sleep apnea and you will have to use the BIPAP mask at night to sleep. Do this MISSY please. 10. Coronavirus prevention - please avoid large gatherings of people if possible. Do not travel at this time except to the doctor, pharmacy, etc. Wash hands for 20 seconds with soap/water frequently and/or use hand oncology consultant. You are at high risk of this virus. Wear a mask when you go to your doctor visits if possible. 11. Resume your lasix water pill twice daily on 09/22/2019, in the morning. Skip this medication today and tomorrow. Check your weight EVERY DAY upon waking up. Call your doctors if you gain more than 3 pounds in 24 hours. This is typically a sign you are taking on excess water weight from heart troubles. Follow-up - see the [place] in [place] NEXT WEEK Other appointments - see separate section Addtl Wood Grinder Provider Instructions: ACTIVITY RECOMMENDATIONS following pacemaker placement: * Do not raise your LEFT arm over head for 2 weeks. SPECIAL CARE INSTRUCTIONS: * If bleeding occurs, apply direct pressure to area for 5 minutes. * Call your doctor if you have severe pain, fever, drainage or bleeding at site. * Keep dressing on and dry for 48 hours then remove. * Keep any scheduled doctor's appointment. * Implant Card - hand held device with website information given. SKIN IRRITATION: * You may experience some redness and/or swelling in the area where radiation was administered. If any skin irritation occurs, please contact your family physician. FOLLOW UP VISIT: Keep any scheduled doctor appointments. Pending Studies at Discharge: No Stand-Alone Forms: [facility] [place], Smoking Cessation Medications and DC Order Prescriptions: New ipratropium-albuterol 0.5 mg-3 mg(2.5 mg base)/3 mL Solution For Nebulization 3 ml NEB Q6H PRN (Reason: cough/wheeze/shortness of breath) Qty: 1 RF: 0 lisinopril 20 mg Tablet 20 mg PO QAM Qty: 30 RF: 1 benzonatate [Tessalon Perles] 100 mg Capsule 100 mg PO TID PRN (Reason: Cough) Qty: 30 RF: 0 nicotine 7 mg/24 hr Patch 24 Hour 14 mg transdermal QAM Qty: 30 RF: 0 (DME) nebulizer and compressor Device See Rx Instructions .ROUTE .MEDSUPPLY Qty: 1 RF: 0 prednisone 10 mg tablet 10 mg PO DIRECTED Qty: 30 RF: 0 potassium chloride [Klor-Con M20] 20 mEq Tablet,Er Particles/Crystals 20 meq PO QAM Qty: 30 RF: 0 Continued aspirin [Danielle Aspirin] 325 mg Tablet 325 mg PO QAM RF: 0 jbrutehvcv-ajxujmjeajkeq-jhcq 50-325-40 mg Tablet 1 tab PO Q6H PRN (Reason: Migraine Headache) RF: 0 amlodipine 10 mg Tablet 10 mg PO DAILY RF: 0 timolol 0.25 % Drops 1 drp OPHTHALMIC (EYE) QAM RF: 0 Excedrin Extra Strength 250-250-65 mg Tablet 1 tab PO Q6H PRN (Reason: Pain) RF: 0 cholecalciferol (vitamin D3) [Vitamin D3] 25 mcg (1,000 unit) Capsule 1,000 unit PO DAILY RF: 0 magnesium 200 mg Tablet 400 mg PO DAILY RF: 0 omega 4-kys-eko-fish oil 1,000 mg (120 mg-180 mg) Capsule 2 cap PO BID RF: 0 Centrum Men 8 mg iron- 200 mcg-600 mcg Tablet 1 tab PO DAILY RF: 0 Nugenix 1 cap PO DAILY RF: 0 latanoprost 0.005 % Drops 1 drp OPHTHALMIC (EYE) PM RF: 0 furosemide 40 mg Tablet 40 mg PO BID Qty: 60 RF: 0 Discontinued sildenafil 100 mg Tablet 100 mg PO DAILY PRN (Reason: Erectile Dysfunction) RF: 0 trazodone 100 mg Tablet 100 mg PO HS RF: 0 diazepam 5 mg Tablet 5 mg PO TID PRN (Reason: Anxiety) RF: 0 No Action metoprolol tartrate 50 mg tablet 50 mg PO BID Qty: 60 RF: 2 Discharge Orders: Discharge Order (Routine); Ordered 09/20/19 Ordered By: Thomas Briones/Other Patient Handouts: A1C Admission Data Admit Date/Time: 09/13/19 19:15 Attending Provider: Thomas Murcia Admit Provider: Carlee Khan Primary Care Provider: PCP,ZAHRA Other Providers: Cale Duncan ; Artis Méndez ; Torrey Reyes Other Interventions: Discharge Summary Assessment (RN) Last Done: 09/20/19 13:50 DC Date/Time DO NOT enter until pt leaves facility: 09/20/19 14:45 Coding Level of Care Code D/C Day Management >30 mins Diagnoses Acute hypercapnic respiratory failure J96.02 COPD exacerbation J44.1 Acute exacerbation of congestive heart failure I50.33 Heart failure type: diastolic Sick sinus syndrome I49.5 Visual disturbance H53.9 Metabolic encephalopathy G93.41 Hypertensive urgency I16.0 Hyponatremia E87.1 Nicotine dependence F17.210 Nicotine product type: cigarettes Substance use status: uncomplicated Morbid obesity with BMI of 40.0-44.9, adult E66.01; Z68.41 Syncope R55
== END 2019-09-20 14:45 | disposition home or self-care (01) | DRG 242 ==
LOC: ED 16:32 → SUATTDRO 19:15 → 2E 19:15 → 1E 09-16 12:33 → 2S 09-18 14:07
DX: H40.9 Unspecified glaucoma; I50.33 Acute on chronic diastolic (congestive) heart failure; I49.5 Sick sinus syndrome; J18.0 Bronchopneumonia, unspecified organism; G93.41 Metabolic encephalopathy; T50.2X5A Adverse effect of carbonic-anhydrase inhibitors, benzothiadiazides and other diuretics, initial encounter; E87.3 Alkalosis; I11.0 Hypertensive heart disease with heart failure; H53.9 Unspecified visual disturbance; F17.210 Nicotine dependence, cigarettes, uncomplicated; E87.1 Hypo-osmolality and hyponatremia; E78.1 Pure hyperglyceridemia; Z51.81 Encounter for therapeutic drug level monitoring; J96.02 Acute respiratory failure with hypercapnia; Z68.41 Body mass index [BMI] 40.0-44.9, adult; E66.2 Morbid (severe) obesity with alveolar hypoventilation; J96.01 Acute respiratory failure with hypoxia; J44.0 Chronic obstructive pulmonary disease with (acute) lower respiratory infection; F41.9 Anxiety disorder, unspecified; I45.10 Unspecified right bundle-branch block; Z88.8 Allergy status to other drugs, medicaments and biological substances; J44.1 Chronic obstructive pulmonary disease with (acute) exacerbation; F32.9 Major depressive disorder, single episode, unspecified; H54.8 Legal blindness, as defined in USA; Z79.899 Other long term (current) drug therapy; I16.0 Hypertensive urgency; Z79.82 Long term (current) use of aspirin